=== PATIENT | female | born 1955 | race American Indian/Alaskan Native ===

== ENCOUNTER 2019-02-08 13:03 | Inpatient (IN) | payer MEDICAID, MEDICARE ==
[2019-02-08] MEDS ORDERED: NALOXONE 2 MG/2 ML INJ IV ONE (13:14)
[2019-02-08] MEDS ORDERED: NALOXONE 2 MG/2 ML INJ ONE (13:16)
[2019-02-08] MEDS ORDERED: SODIUM CHLORIDE 0.9% 1000 ML 2,000 ML ONE ×2 (13:21→16:09)
[2019-02-08] MEDS ORDERED: VANCOMYCIN/NS 1 GM/250 ML 1 GM/250 ML BAG IV ONE (13:39)
[2019-02-08] MEDS ORDERED: CEFEPIME/NS 1 GM/100 ML 1 GM/100 ML BAG IV ONE (13:39)
[2019-02-08] MEDS ORDERED: SODIUM CHLORIDE 0.9% 1000 ML 2,000 ML IV ONE (13:39)
[2019-02-08] MEDS ORDERED: SODIUM CHLORIDE 0.9% 1000 ML 1,000 ML IV ONE ×3 (13:41→21:20)
--- NOTE | 2019-02-08 13:44 | Emergency Department Report ---
ED Altered Mental Status HPI - General Stated Complaint: AMS Time Seen by Provider: 02/08/19 13:37 Limitations: Altered Mental Status - History of Present Illness Initial Comments: EMS reports called to NH for altered mental status. Reports patient full code. Reports patient normally walking around and talking. [place] records show PMHx CVA. EMS reports patient hypoxic on room air sat ~ 70s. Reports patient hypotensive en route. - Related Data Home Medications Medication Instructions Recorded Confirmed Last Taken Acetaminophen [Mapap] 650 mg PO Q6H PRN 02/08/19 02/08/19 Unknown Albuterol Sulfate [Proventil Hfa] 6.7 gm IH Q6H PRN 02/08/19 02/08/19 Unknown Aspirin [Aspirin BABY CHEW TAB] 81 mg PO QDAY 02/08/19 02/08/19 Unknown AtorvaSTATin [Lipitor] 10 mg PO QHS 02/08/19 02/08/19 Unknown Calcium Carbonate [Calcium 600MG 600 mg PO DAILY 02/08/19 02/08/19 Unknown TAB] Cyclobenzaprine [Flexeril] 10 mg PO BID PRN 02/08/19 02/08/[address] [DepaKOTE DR] 125 mg PO DAILY 02/08/19 02/08/19 Unknown Divalproex ER [DepaKOTE ER] 500 mg PO QHS 02/08/19 02/08/19 Unknown Donepezil HCl [Donepezil HCl Odt] 10 mg PO QHS 02/08/19 02/08/19 Unknown Gabapentin [Neurontin] 300 mg PO DAILY 02/08/19 02/08/19 Unknown Ibuprofen [Motrin] 800 mg PO Q8HR PRN 02/08/19 02/08/19 Unknown Latanoprost 0.005% [Xalatan 0.005%] 1 drop OP QHS 02/08/19 02/08/19 Unknown Lisinopril [Zestril TAB] 40 mg PO QDAY 02/08/19 02/08/19 Unknown Memantine [Namenda] 10 mg PO BID 02/08/19 02/08/19 Unknown Pantoprazole Sodium [Protonix] 40 mg PO DAILY 02/08/19 02/08/19 Unknown Sennosides [Senna] 8.6 mg PO Q6H PRN 02/08/19 02/08/19 Unknown Sertraline [Zoloft] 125 mg PO QDAY 02/08/19 02/08/19 Unknown Tiotropium [place] [Spiriva] 18 mcg IH DAILY 02/08/19 02/08/19 Unknown hydroCHLOROthiazide [HCTZ] 25 mg PO QDAY 02/08/19 02/08/19 Unknown labetaloL [Labetalol 200mg TAB] 400 mg PO Q8H 02/08/19 02/08/19 Unknown metFORMIN [Glucophage] 500 mg PO BID 02/08/19 02/08/19 Unknown Allergies Allergy/AdvReac Type Severity Reaction Status Date / Time famotidine [From Pepcid] Allergy Unknown Verified 02/08/19 17:02 Pork/Porcine Containing Allergy Unknown Verified 02/08/19 17:02 Products shellfish derived Allergy Unknown Verified 02/08/19 13:47 spinach Allergy Unknown Verified 02/08/19 17:02 strawberry Allergy Unknown Verified 02/08/19 17:02 ED Review of Systems ROS: Stated complaint: AMS Other details as noted in HPI Comment: Unobtainable due to pts medical conditions ED Past Medical Hx - Medications Home Medications: Home Medications Medication Instructions Recorded Confirmed Last Taken Type Acetaminophen [Mapap] 650 mg PO Q6H PRN 02/08/19 02/08/19 Unknown History Albuterol Sulfate [Proventil Hfa] 6.7 gm IH Q6H PRN 02/08/19 02/08/19 Unknown History Aspirin [Aspirin BABY CHEW TAB] 81 mg PO QDAY 02/08/19 02/08/19 Unknown History AtorvaSTATin [Lipitor] 10 mg PO QHS 02/08/19 02/08/19 Unknown History Calcium Carbonate [Calcium 600MG 600 mg PO DAILY 02/08/19 02/08/19 Unknown History TAB] Cyclobenzaprine [Flexeril] 10 mg PO BID PRN 02/08/19 02/08/[address] [DepaKOTE DR] 125 mg PO DAILY 02/08/19 02/08/19 Unknown History Divalproex ER [DepaKOTE ER] 500 mg PO QHS 02/08/19 02/08/19 Unknown History Donepezil HCl [Donepezil HCl Odt] 10 mg PO QHS 02/08/19 02/08/19 Unknown History Gabapentin [Neurontin] 300 mg PO DAILY 02/08/19 02/08/19 Unknown History Ibuprofen [Motrin] 800 mg PO Q8HR PRN 02/08/19 02/08/19 Unknown History Latanoprost 0.005% [Xalatan 0.005%] 1 drop OP QHS 02/08/19 02/08/19 Unknown History Lisinopril [Zestril TAB] 40 mg PO QDAY 02/08/19 02/08/19 Unknown History Memantine [Namenda] 10 mg PO BID 02/08/19 02/08/19 Unknown History Pantoprazole Sodium [Protonix] 40 mg PO DAILY 02/08/19 02/08/19 Unknown History Sennosides [Senna] 8.6 mg PO Q6H PRN 02/08/19 02/08/19 Unknown History Sertraline [Zoloft] 125 mg PO QDAY 02/08/19 02/08/19 Unknown History Tiotropium [place] [Spiriva] 18 mcg IH DAILY 02/08/19 02/08/19 Unknown History hydroCHLOROthiazide [HCTZ] 25 mg PO QDAY 02/08/19 02/08/19 Unknown History labetaloL [Labetalol 200mg TAB] 400 mg PO Q8H 02/08/19 02/08/19 Unknown History metFORMIN [Glucophage] 500 mg PO BID 02/08/19 02/08/19 Unknown History ED Physical Exam - Other Other exam information: GENERAL: Patient in severe acute distress HEAD: Normocephalic, atraumatic EYES: no scleral icterus NOSE: No tenderness, discharge, sinus tenderness MOUTH: Dry mucous membranes HEART: Regular rate and rhythm, no murmur, S1-S2 are auscultated, no edema, pulses are symmetric LUNGS: No respiratory distress. Bilateral breath sounds, No tachypnea, No retractions, No wheezing, rales, rhonchi ABDOMEN: Mild tenderness. Normal bowel sounds, abdomen soft, no distention, no masses MUSCULOSKELETAL: Normal joint range of motion, no redness, no swelling, no tenderness NEUROLOGIC: GCS 07 SKIN: Skin is warm and dry ED Course Vital Signs 02/08/19 02/08/19 02/08/19 13:35 14:29 14:53 Temperature 96.7 F L Pulse Rate 82 87 Blood Pressure 63/31 78/44 O2 Sat by Pulse 100 93 Oximetry 02/08/19 16:37 Temperature Pulse Rate 78 Blood Pressure 76/38 O2 Sat by Pulse 100 Oximetry - Central Line Placement Right Femoral Consent Obtained: emergent situation Time Out Performed: Yes Patient Placed on Monitor/Pulse Ox: Yes Prep: mask, gown, gloves Central Line Prep: Chlorhexidine scrub Ultrasound Used for Placement: No Central Line Lumen Inserted: triple Bloods Obtained for Lab: Yes Central Line Position: good blood return, all ports aspirated, flus, sutured in place with 2-0 Dressing Applied: Tegaderm Patient Tolerated Procedure: well, no complications Complications: none - Intubation Time Out Performed: Yes Sedative: Etomidate Paralytic: Rocuronium Laryngoscope: Jessika Size: 4 ET Tube Size: 7.5 Tube Secured Depth (cm): 22 Tube Secured Location: lips Tube Placement Confirmation: visualized tube passing t, equal breath sounds bilat, no breath sounds over epi, confirmation by capnometr Patient Tolerated Procedure: well, no complications Intubation Complications: none - Lab Data Result diagrams: 02/08/19 13:15 02/08/19 13:15 Lab Results 02/08/19 02/08/19 02/08/19 Range/Units 13:15 13:15 13:15 WBC 16.5 H (4.5-11.0) K/mm3 RBC 3.86 (3.65-5.03) M/mm3 Hgb 9.6 L (10.1-14.3) gm/dl Hct 31.7 (30.3-42.9) % MCV 82 (79-97) fl MCH 25 L (28-32) pg MCHC 30 (30-34) % RDW 20.5 H (13.2-15.2) % Plt Count 284 (140-440) K/mm3 Lymph % (Auto) 10.5 L (13.4-35.0) % [place] % (Auto) 5.4 (0.0-7.3) % Eos % (Auto) 0.0 (0.0-4.3) % Baso % (Auto) 0.1 (0.0-1.8) % Lymph # 1.7 (1.2-5.4) K/mm3 [place] # 0.9 H (0.0-0.8) K/mm3 Eos # 0.0 (0.0-0.4) K/mm3 Baso # 0.0 (0.0-0.1) K/mm3 Seg Neutrophils % 84.0 H (40.0-70.0) % Seg Neutrophils # 13.8 H (1.8-7.7) K/mm3 PT (12.2-14.9) Sec. INR (0.87-1.13) APTT (24.2-36.6) Sec. POC ABG pH (7.35-7.45) POC ABG pCO2 (35-45) POC ABG pO2 (80-105) POC ABG HCO3 (22-26 mml/L) POC ABG Total CO2 (23-27mmol/L) POC ABG O2 Sat POC ABG Base Excess ((-2) - (+3)mmol/L) FiO2 % Sodium (137-145) mmol/L Potassium (3.6-5.0) mmol/L Chloride (98-107) mmol/L Carbon Dioxide (22-30) mmol/L Anion Gap mmol/L BUN (7-17) mg/dL Creatinine (0.7-1.2) mg/dL Estimated GFR ml/min BUN/Creatinine Ratio % Glucose (65-100) mg/dL POC Glucose (70-105) Lactic Acid 7.30 H* (0.7-2.0) mmol/L Calcium (8.4-10.2) mg/dL Magnesium 2.30 (1.7-2.3) mg/dL Total Bilirubin (0.1-1.2) mg/dL AST (5-40) units/L ALT (7-56) units/L Alkaline Phosphatase (35-129) units/L Total Creatine Kinase (30-135) units/L Troponin T 0.079 H (0.00-0.029) ng/mL Total Protein (6.3-8.2) g/dL Albumin (3.9-5) g/dL Albumin/Globulin Ratio % Triglycerides 379 H (2-149) mg/dL Cholesterol 124 (50-199) mg/dL LDL Cholesterol Direct 16 L (50-130) mg/dL HDL Cholesterol 22 L (40-59) mg/dL Cholesterol/HDL Ratio 5.63 % Lipase (13-60) units/L Urine Color (Yellow) Urine Turbidity (Clear) Urine pH (5.0-7.0) Ur Specific [place] (1.003-1.030) Urine Protein (Negative) mg/dL Urine Glucose (UA) (Negative) mg/dL Urine Ketones (Negative) mg/dL Urine Blood (Negative) Urine Nitrite (Negative) Urine Bilirubin (Negative) Urine Urobilinogen (<2.0) mg/dL Ur Leukocyte Esterase (Negative) Urine WBC (Auto) (0.0-6.0) /HPF Urine RBC (Auto) (0.0-6.0) /HPF U Epithel Cells (Auto) (0-13.0) /HPF Urine Bacteria (Auto) (Negative) /HPF Urine WBC Clumps /HPF Ur Renal Epithelial Cell /LPF Salicylates (2.8-20.0) mg/dL Acetaminophen (10.0-30.0) ug/mL 02/08/19 02/08/19 02/08/19 Range/Units 13:15 13:15 13:15 WBC (4.5-11.0) K/mm3 RBC (3.65-5.03) M/mm3 Hgb (10.1-14.3) gm/dl Hct (30.3-42.9) % MCV (79-97) fl MCH (28-32) pg MCHC (30-34) % RDW (13.2-15.2) % Plt Count (140-440) K/mm3 Lymph % (Auto) (13.4-35.0) % [place] % (Auto) (0.0-7.3) % Eos % (Auto) (0.0-4.3) % Baso % (Auto) (0.0-1.8) % Lymph # (1.2-5.4) K/mm3 [place] # (0.0-0.8) K/mm3 Eos # (0.0-0.4) K/mm3 Baso # (0.0-0.1) K/mm3 Seg Neutrophils % (40.0-70.0) % Seg Neutrophils # (1.8-7.7) K/mm3 PT 16.0 H (12.2-14.9) Sec. INR 1.26 H (0.87-1.13) APTT 26.0 (24.2-36.6) Sec. POC ABG pH (7.35-7.45) POC ABG pCO2 (35-45) POC ABG pO2 (80-105) POC ABG HCO3 (22-26 mml/L) POC ABG Total CO2 (23-27mmol/L) POC ABG O2 Sat POC ABG Base Excess ((-2) - (+3)mmol/L) FiO2 % Sodium 150 H (137-145) mmol/L Potassium 5.8 H (3.6-5.0) mmol/L Chloride 100.4 (98-107) mmol/L Carbon Dioxide 16 L (22-30) mmol/L Anion Gap 39 mmol/L BUN 91 H (7-17) mg/dL Creatinine 7.6 H (0.7-1.2) mg/dL Estimated GFR 7 ml/min BUN/Creatinine Ratio 12 % Glucose 89 (65-100) mg/dL POC Glucose (70-105) Lactic Acid (0.7-2.0) mmol/L Calcium 8.7 (8.4-10.2) mg/dL Magnesium (1.7-2.3) mg/dL Total Bilirubin 0.30 (0.1-1.2) mg/dL AST 157 H (5-40) units/L ALT 64 H (7-56) units/L Alkaline Phosphatase 60 (35-129) units/L Total Creatine Kinase 9438 H (30-135) units/L Troponin T (0.00-0.029) ng/mL Total Protein 8.2 (6.3-8.2) g/dL Albumin 3.9 (3.9-5) g/dL Albumin/Globulin Ratio 0.9 % Triglycerides (2-149) mg/dL Cholesterol (50-199) mg/dL LDL Cholesterol Direct (50-130) mg/dL HDL Cholesterol (40-59) mg/dL Cholesterol/HDL Ratio % Lipase 18 (13-60) units/L Urine Color (Yellow) Urine Turbidity (Clear) Urine pH (5.0-7.0) Ur Specific [place] (1.003-1.030) Urine Protein (Negative) mg/dL Urine Glucose (UA) (Negative) mg/dL Urine Ketones (Negative) mg/dL Urine Blood (Negative) Urine Nitrite (Negative) Urine Bilirubin (Negative) Urine Urobilinogen (<2.0) mg/dL Ur Leukocyte Esterase (Negative) Urine WBC (Auto) (0.0-6.0) /HPF Urine RBC (Auto) (0.0-6.0) /HPF U Epithel Cells (Auto) (0-13.0) /HPF Urine Bacteria (Auto) (Negative) /HPF Urine WBC Clumps /HPF Ur Renal Epithelial Cell /LPF Salicylates < 0.3 L (2.8-20.0) mg/dL Acetaminophen (10.0-30.0) ug/mL 02/08/19 02/08/19 02/08/19 Range/Units 13:15 14:45 14:53 WBC (4.5-11.0) K/mm3 RBC (3.65-5.03) M/mm3 Hgb (10.1-14.3) gm/dl Hct (30.3-42.9) % MCV (79-97) fl MCH (28-32) pg MCHC (30-34) % RDW (13.2-15.2) % Plt Count (140-440) K/mm3 Lymph % (Auto) (13.4-35.0) % [place] % (Auto) (0.0-7.3) % Eos % (Auto) (0.0-4.3) % Baso % (Auto) (0.0-1.8) % Lymph # (1.2-5.4) K/mm3 [place] # (0.0-0.8) K/mm3 Eos # (0.0-0.4) K/mm3 Baso # (0.0-0.1) K/mm3 Seg Neutrophils % (40.0-70.0) % Seg Neutrophils # (1.8-7.7) K/mm3 PT (12.2-14.9) Sec. INR (0.87-1.13) APTT (24.2-36.6) Sec. POC ABG pH 7.126 L (7.35-7.45) POC ABG pCO2 38.5 (35-45) POC ABG pO2 174 H (80-105) POC ABG HCO3 12.7 (22-26 mml/L) POC ABG Total CO2 14 (23-27mmol/L) POC ABG O2 Sat 99 POC ABG Base Excess -17 ((-2) - (+3)mmol/L) FiO2 100 % Sodium (137-145) mmol/L Potassium (3.6-5.0) mmol/L Chloride (98-107) mmol/L Carbon Dioxide (22-30) mmol/L Anion Gap mmol/L BUN (7-17) mg/dL Creatinine (0.7-1.2) mg/dL Estimated GFR ml/min BUN/Creatinine Ratio % Glucose (65-100) mg/dL POC Glucose (70-105) Lactic Acid (0.7-2.0) mmol/L Calcium (8.4-10.2) mg/dL Magnesium (1.7-2.3) mg/dL Total Bilirubin (0.1-1.2) mg/dL AST (5-40) units/L ALT (7-56) units/L Alkaline Phosphatase (35-129) units/L Total Creatine Kinase (30-135) units/L Troponin T (0.00-0.029) ng/mL Total Protein (6.3-8.2) g/dL Albumin (3.9-5) g/dL Albumin/Globulin Ratio % Triglycerides (2-149) mg/dL Cholesterol (50-199) mg/dL LDL Cholesterol Direct (50-130) mg/dL HDL Cholesterol (40-59) mg/dL Cholesterol/HDL Ratio % Lipase (13-60) units/L Urine Color Yellow (Yellow) Urine Turbidity Turbid (Clear) Urine pH 7.0 (5.0-7.0) Ur Specific [place] 1.013 (1.003-1.030) Urine Protein 100 mg/dl (Negative) mg/dL Urine Glucose (UA) Neg (Negative) mg/dL Urine Ketones Neg (Negative) mg/dL Urine Blood Mod (Negative) Urine Nitrite Neg (Negative) Urine Bilirubin Neg (Negative) Urine Urobilinogen < 2.0 (<2.0) mg/dL Ur Leukocyte Esterase Mod (Negative) Urine WBC (Auto) > 182.0 H (0.0-6.0) /HPF Urine RBC (Auto) 165.0 (0.0-6.0) /HPF U Epithel Cells (Auto) 14.0 H (0-13.0) /HPF Urine Bacteria (Auto) 4+ (Negative) /HPF Urine WBC Clumps 3+ /HPF Ur Renal Epithelial Cell 2 /LPF Salicylates (2.8-20.0) mg/dL Acetaminophen < 5.0 L (10.0-30.0) ug/mL 02/08/19 Range/Units 15:18 WBC (4.5-11.0) K/mm3 RBC (3.65-5.03) M/mm3 Hgb (10.1-14.3) gm/dl Hct (30.3-42.9) % MCV (79-97) fl MCH (28-32) pg MCHC (30-34) % RDW (13.2-15.2) % Plt Count (140-440) K/mm3 Lymph % (Auto) (13.4-35.0) % [place] % (Auto) (0.0-7.3) % Eos % (Auto) (0.0-4.3) % Baso % (Auto) (0.0-1.8) % Lymph # (1.2-5.4) K/mm3 [place] # (0.0-0.8) K/mm3 Eos # (0.0-0.4) K/mm3 Baso # (0.0-0.1) K/mm3 Seg Neutrophils % (40.0-70.0) % Seg Neutrophils # (1.8-7.7) K/mm3 PT (12.2-14.9) Sec. INR (0.87-1.13) APTT (24.2-36.6) Sec. POC ABG pH (7.35-7.45) POC ABG pCO2 (35-45) POC ABG pO2 (80-105) POC ABG HCO3 (22-26 mml/L) POC ABG Total CO2 (23-27mmol/L) POC ABG O2 Sat POC ABG Base Excess ((-2) - (+3)mmol/L) FiO2 % Sodium (137-145) mmol/L Potassium (3.6-5.0) mmol/L Chloride (98-107) mmol/L Carbon Dioxide (22-30) mmol/L Anion Gap mmol/L BUN (7-17) mg/dL Creatinine (0.7-1.2) mg/dL Estimated GFR ml/min BUN/Creatinine Ratio % Glucose (65-100) mg/dL POC Glucose 105 (70-105) Lactic Acid (0.7-2.0) mmol/L Calcium (8.4-10.2) mg/dL Magnesium (1.7-2.3) mg/dL Total Bilirubin (0.1-1.2) mg/dL AST (5-40) units/L ALT (7-56) units/L Alkaline Phosphatase (35-129) units/L Total Creatine Kinase (30-135) units/L Troponin T (0.00-0.029) ng/mL Total Protein (6.3-8.2) g/dL Albumin (3.9-5) g/dL Albumin/Globulin Ratio % Triglycerides (2-149) mg/dL Cholesterol (50-199) mg/dL LDL Cholesterol Direct (50-130) mg/dL HDL Cholesterol (40-59) mg/dL Cholesterol/HDL Ratio % Lipase (13-60) units/L Urine Color (Yellow) Urine Turbidity (Clear) Urine pH (5.0-7.0) Ur Specific [place] (1.003-1.030) Urine Protein (Negative) mg/dL Urine Glucose (UA) (Negative) mg/dL Urine Ketones (Negative) mg/dL Urine Blood (Negative) Urine Nitrite (Negative) Urine Bilirubin (Negative) Urine Urobilinogen (<2.0) mg/dL Ur Leukocyte Esterase (Negative) Urine WBC (Auto) (0.0-6.0) /HPF Urine RBC (Auto) (0.0-6.0) /HPF U Epithel Cells (Auto) (0-13.0) /HPF Urine Bacteria (Auto) (Negative) /HPF Urine WBC Clumps /HPF Ur Renal Epithelial Cell /LPF Salicylates (2.8-20.0) mg/dL Acetaminophen (10.0-30.0) ug/mL Laboratory Results - last 24 hr 02/08/19 02/08/19 02/08/19 13:15 13:15 13:15 WBC 16.5 H RBC 3.86 Hgb 9.6 L Hct 31.7 MCV 82 MCH 25 L MCHC 30 RDW 20.5 H Plt Count 284 Lymph % (Auto) 10.5 L [place] % (Auto) 5.4 Eos % (Auto) 0.0 Baso % (Auto) 0.1 Lymph # 1.7 [place] # 0.9 H Eos # 0.0 Baso # 0.0 Seg Neutrophils % 84.0 H Seg Neutrophils # 13.8 H PT INR APTT POC ABG pH POC ABG pCO2 POC ABG pO2 POC ABG HCO3 POC ABG Total CO2 POC ABG O2 Sat POC ABG Base Excess FiO2 Sodium Potassium Chloride Carbon Dioxide Anion Gap BUN Creatinine Estimated GFR BUN/Creatinine Ratio Glucose POC Glucose Lactic Acid 7.30 H* Calcium Magnesium 2.30 Total Bilirubin AST ALT Alkaline Phosphatase Total Creatine Kinase Troponin T 0.079 H Total Protein Albumin Albumin/Globulin Ratio Triglycerides 379 H Cholesterol 124 LDL Cholesterol Direct 16 L HDL Cholesterol 22 L Cholesterol/HDL Ratio 5.63 Lipase Urine Color Urine Turbidity Urine pH Ur Specific [place] Urine Protein Urine Glucose (UA) Urine Ketones Urine Blood Urine Nitrite Urine Bilirubin Urine Urobilinogen Ur Leukocyte Esterase Urine WBC (Auto) Urine RBC (Auto) U Epithel Cells (Auto) Urine Bacteria (Auto) Urine WBC Clumps Ur Renal Epithelial Cell Salicylates Acetaminophen 02/08/19 02/08/19 02/08/19 13:15 13:15 13:15 WBC RBC Hgb Hct MCV MCH MCHC RDW Plt Count Lymph % (Auto) [place] % (Auto) Eos % (Auto) Baso % (Auto) Lymph # [place] # Eos # Baso # Seg Neutrophils % Seg Neutrophils # PT 16.0 H INR 1.26 H APTT 26.0 POC ABG pH POC ABG pCO2 POC ABG pO2 POC ABG HCO3 POC ABG Total CO2 POC ABG O2 Sat POC ABG Base Excess FiO2 Sodium 150 H Potassium 5.8 H Chloride 100.4 Carbon Dioxide 16 L Anion Gap 39 BUN 91 H Creatinine 7.6 H Estimated GFR 7 BUN/Creatinine Ratio 12 Glucose 89 POC Glucose Lactic Acid Calcium 8.7 Magnesium Total Bilirubin 0.30 AST 157 H ALT 64 H Alkaline Phosphatase 60 Total Creatine Kinase 9438 H Troponin T Total Protein 8.2 Albumin 3.9 Albumin/Globulin Ratio 0.9 Triglycerides Cholesterol LDL Cholesterol Direct HDL Cholesterol Cholesterol/HDL Ratio Lipase 18 Urine Color Urine Turbidity Urine pH Ur Specific [place] Urine Protein Urine Glucose (UA) Urine Ketones Urine Blood Urine Nitrite Urine Bilirubin Urine Urobilinogen Ur Leukocyte Esterase Urine WBC (Auto) Urine RBC (Auto) U Epithel Cells (Auto) Urine Bacteria (Auto) Urine WBC Clumps Ur Renal Epithelial Cell Salicylates < 0.3 L Acetaminophen 02/08/19 02/08/19 02/08/19 13:15 14:45 14:53 WBC RBC Hgb Hct MCV MCH MCHC RDW Plt Count Lymph % (Auto) [place] % (Auto) Eos % (Auto) Baso % (Auto) Lymph # [place] # Eos # Baso # Seg Neutrophils % Seg Neutrophils # PT INR APTT POC ABG pH 7.126 L POC ABG pCO2 38.5 POC ABG pO2 174 H POC ABG HCO3 12.7 POC ABG Total CO2 14 POC ABG O2 Sat 99 POC ABG Base Excess -17 FiO2 100 Sodium Potassium Chloride Carbon Dioxide Anion Gap BUN Creatinine Estimated GFR BUN/Creatinine Ratio Glucose POC Glucose Lactic Acid Calcium Magnesium Total Bilirubin AST ALT Alkaline Phosphatase Total Creatine Kinase Troponin T Total Protein Albumin Albumin/Globulin Ratio Triglycerides Cholesterol LDL Cholesterol Direct HDL Cholesterol Cholesterol/HDL Ratio Lipase Urine Color Yellow Urine Turbidity Turbid Urine pH 7.0 Ur Specific [place] 1.013 Urine Protein 100 mg/dl Urine Glucose (UA) Neg Urine Ketones Neg Urine Blood Mod Urine Nitrite Neg Urine Bilirubin Neg Urine Urobilinogen < 2.0 Ur Leukocyte Esterase Mod Urine WBC (Auto) > 182.0 H Urine RBC (Auto) 165.0 U Epithel Cells (Auto) 14.0 H Urine Bacteria (Auto) 4+ Urine WBC Clumps 3+ Ur Renal Epithelial Cell 2 Salicylates Acetaminophen < 5.0 L 02/08/19 15:18 WBC RBC Hgb Hct MCV MCH MCHC RDW Plt Count Lymph % (Auto) [place] % (Auto) Eos % (Auto) Baso % (Auto) Lymph # [place] # Eos # Baso # Seg Neutrophils % Seg Neutrophils # PT INR APTT POC ABG pH POC ABG pCO2 POC ABG pO2 POC ABG HCO3 POC ABG Total CO2 POC ABG O2 Sat POC ABG Base Excess FiO2 Sodium Potassium Chloride Carbon Dioxide Anion Gap BUN Creatinine Estimated GFR BUN/Creatinine Ratio Glucose POC Glucose 105 Lactic Acid Calcium Magnesium Total Bilirubin AST ALT Alkaline Phosphatase Total Creatine Kinase Troponin T Total Protein Albumin Albumin/Globulin Ratio Triglycerides Cholesterol LDL Cholesterol Direct HDL Cholesterol Cholesterol/HDL Ratio Lipase Urine Color Urine Turbidity Urine pH Ur Specific [place] Urine Protein Urine Glucose (UA) Urine Ketones Urine Blood Urine Nitrite Urine Bilirubin Urine Urobilinogen Ur Leukocyte Esterase Urine WBC (Auto) Urine RBC (Auto) U Epithel Cells (Auto) Urine Bacteria (Auto) Urine WBC Clumps Ur Renal Epithelial Cell Salicylates Acetaminophen When compared to previous EKG there are: no significant change - Radiology Data Radiology results: report reviewed - Medical Decision Making At 1521 patient experienced an episode of cardiac arrest per ER nurse. Physician called to bedside where CPR was in progress. Patient received one round of CPR with epi, bicarb, and CaCl infusion and with ROSC. Patient stabilized. Plan admit for further evaluation. Hospitalist updated and accepts admission. Critical care attestation.: If time is entered above; I have spent that time in minutes in the direct care of this critically ill patient, excluding procedure time. ED Disposition Clinical Impression: Septic shock, Hyperkalemia, Uremia, Colitis, Cardiac arrest Altered mental status Qualifiers: Altered mental status type: unspecified Qualified Code(s): R41.82 - Altered mental status, unspecified Rhabdomyolysis Qualifiers: Rhabdomyolysis type: non-traumatic Qualified Code(s): M62.82 - Rhabdomyolysis Acute renal failure Qualifiers: Acute renal failure type: unspecified Qualified Code(s): N17.9 - Acute kidney failure, unspecified UTI (urinary tract infection) Qualifiers: Encounter type: initial encounter Disposition: OP ADMIT IP TO THIS HOSP Is pt being admited?: Yes Condition: Stable
[2019-02-08 13:52] LABS: Basophils % (Auto) 0.1 % (0.0-1.8); Hematocrit 31.7 % (30.3-42.9); Hemoglobin 9.6 gm/dl (10.1-14.3); Lymphocytes # (Auto) 1.7 K/mm3 (1.2-5.4); Lymphocytes % (Auto) 10.5 % (13.4-35.0); Mean Corpuscular HGB Conc 30 % (30-34); Mean Corpuscular Volume 82 fl (79-97); Monocytes # (Auto) 0.9 K/mm3 (0.0-0.8); Monocytes % (Auto) 5.4 % (0.0-7.3); Platelet Count 284 K/mm3 (140-440); Red Blood Count 3.86 M/mm3 (3.65-5.03)
[2019-02-08] MEDS: NORepinephrine/NS 4 MG-250 ML 4 MG/250 ML BAG IV SCH (13:52)
[2019-02-08 14:05] LABS: INR 1.26 (0.87-1.13)
[2019-02-08 14:08] LABS: Red Cell Distribution Width 20.5 % (13.2-15.2)
--- NOTE | 2019-02-08 14:14 | XRay Report ---
CHEST 1 VIEW INDICATION: tachycardia. COMPARISON: None. FINDINGS: Support devices: Endotracheal tube and NG tube in satisfactory position. Heart: Within normal limits. Lungs/Pleura: Diminished lung volumes. Basilar effusions with associated volume loss left greater freya n right. Mild edema. Additional findings: None. IMPRESSION: 1. Lines and tubes in satisfactory position. 2. Diminished lung volumes. 3. Basilar effusions with volume loss left greater than right. 4. Mild edema. Signer Name: Ross Kim MD Signed: 02/08/2019 2:09 PM Workstation Name: [id number]
[2019-02-08 14:15] LABS: Albumin 3.9 g/dL (3.9-5); Calcium 8.7 mg/dL (8.4-10.2)
[2019-02-08] MEDS ORDERED: metroNIDAZOLE/NS 500 MG/100 ML 500 MG/100 ML BAG IV ONE ×2 (14:23→15:15)
[2019-02-08] MEDS ORDERED: VANCOMYCIN 1,750 MG in SODIUM CHLORIDE 0.9% 500 ML 500 ML IV ONE (14:30)
[2019-02-08] MEDS ORDERED: EPINEPHrine 1:10,000 1 MG/10 ML SYRINGE ONE (15:00)
[2019-02-08] MEDS ORDERED: ETOMIDATE 20 MG/10 ML INJ IV ONE (15:00)
[2019-02-08] MEDS ORDERED: SODIUM BICARB 8.4% 50 MEQ/50 ML SYRINGE IV ONE (15:00)
[2019-02-08] MEDS ORDERED: ROCURONIUM 50 MG/5 ML INJ IV ONE (15:00)
[2019-02-08] MEDS ORDERED: CALCIUM CHLORIDE 1,000 MG/10 ML SYRINGE IV ONE (15:00)
[2019-02-08 15:01] LABS: Chol/HDL Ratio 5.63 %
[2019-02-08 15:04] LABS: Bacteria,Urine 4+ /HPF (Negative); Bilirubin,Urine NEG (Negative); Blood,Urine MOD (Negative); Color,Urine Yellow (Yellow); Renal Epithelial Cells,Urine 2 /LPF; Urobilinogen,Urine < 2.0 mg/dL (<2.0)
[2019-02-08 15:15] LABS: WBC,Urine > 182.0 /HPF (0.0-6.0)
[2019-02-08] MEDS ORDERED: DOPamine/D5W 800 MG/250 ML 800 MG/250 ML BAG IV ONE ×2 (15:15→18:06)
[2019-02-08] MEDS ORDERED: HYDROCORTISONE SOD SUCC 100 MG/2 ML VIAL IV ONE (15:29)
[2019-02-08] MEDS ORDERED: SODIUM BICARBONATE 50 MEQ in SODIUM CHLORIDE 0.9% 1000 ML 1,000 ML IV ONE (15:30)
--- NOTE | 2019-02-08 15:43 | History and Physical Report ---
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 [place] with Obesity, CVA presents to ED for evaluation. Pt is intubated at time of my evaluation and is unable to provide history. Pt history taken from EMS, ED staff, and SNF Staff. As per staff, the patient was in her usual state of health today and was found to be confused and short of breath. EMS notified, and upon arrival the patient was found to be is distress and transported to [facility]. Pt seen and evaluated in ED and during the course of her initial evaluation the patient experienced cardiorespiratory arrest. Pt treated IAW ACLS protocol with return of perfusing cardiac rhythm. Pt also found to have Septic Shock and unable to maintain MAP above 60 and was initiated on sepsis protocol and treated with IV pressor support and IVF resuscitation therapy. Pt also found to have Acidosis, and Acute hypoxemic Respiratory Failure and was intubated and placed on vent support. No further history obtainable. No prior admission for review. Pt admitt ed to ICU. Pulmonary team consulted in ED. Past History Past Medical History: other (see HPI) Past Surgical History: No surgical history, Other (reviewed) Social history: single. denies: smoking, alcohol abuse, prescription drug abuse Family history: hypertension Medications and Allergies Allergies Allergy/AdvReac Type Severity Reaction Status Date / Time shellfish derived Allergy Unknown Verified 02/08/19 13:47 Active Meds: Active Medications Norepinephrine (Levophed Drip 4 Mg/Ns 250 Ml) 4 mg in 250 mls @ 7.5 mls/hr IV TITR YANNA; Protocol Last Titration: 02/08/19 15:40 Dose: 16 mcg/min, 60 mls/hr Documented by: Vancomycin HCl 1,750 mg/ (Sodium Chloride) 535 mls @ 333.333 mls/hr IV ONCE ONE Stop: 02/08/19 16:06 Last Admin: 02/08/19 14:56 Dose: 333.333 mls/hr Documented by: Metronidazole (Flagyl 500 Mg/100 Ml) 500 mg in 100 mls @ 200 mls/hr IV ONCE ONE; Protocol Stop: 02/08/19 15:44 Last Admin: 02/08/19 15:30 Dose: Not Given Documented by: Dopamine HCl/Dextrose (Intropin Drip 800 Mg/D5w 250 Ml) 800 mg in 250 mls @ 3.274 mls/hr IV TITR ONE; Protocol Stop: 02/11/19 19:36 Sodium Bicarbonate 50 meq/ (Sodium Chloride) 1,050 mls @ 100 mls/hr IV DIRECT ONE Stop: 02/09/19 01:59 Review of Systems ROS unobtainable: due to endotracheal tube Exam - Constitutional Vitals: Temp Pulse Resp BP Pulse Ox 96.7 F L 82 63/31 100 02/08/19 14:29 02/08/19 13:35 02/08/19 13:35 02/08/19 13:35 General appearance: Present: severe distress - EENT Eyes: Present: miosis ENT: hearing decreased - Neck Neck: Present: supple, normal ROM - Respiratory Respiratory effort: labored, accessory muscle use, stridor Respiratory: bilateral: diminished, rhonchi - Cardiovascular Heart Sounds: Present: S1 & S2. Absent: rub, click - Extremities Extremities: pulses symmetrical, No edema Extremity abnormal: edema Peripheral Pulses: abnormal (capillary refill greater than 3.5 seconds) - Abdominal General gastrointestinal: Present: soft, non-tender, non-distended, normal bowel sounds Female genitourinary: Present: normal - Integumentary Integumentary: Present: clear, dry, clammy, decreased turgor - Musculoskeletal Musculoskeletal: generalized weakness - Psychiatric Psychiatric: no appropriate mood/affect, no intact judgment & insight, no memory intact - Neurologic Neurologic: CNII-XII intact, moves all extremities, no gait normal Results - Labs CBC & Chem 7: 02/08/19 13:15 02/08/19 13:15 Labs: Abnormal lab results 02/08/19 02/08/19 02/08/19 Range/Units 13:15 13:15 13:15 WBC 16.5 H (4.5-11.0) K/mm3 Hgb 9.6 L (10.1-14.3) gm/dl MCH 25 L (28-32) pg RDW 20.5 H (13.2-15.2) % Lymph % (Auto) 10.5 L (13.4-35.0) % [place] # 0.9 H (0.0-0.8) K/mm3 Seg Neutrophils % 84.0 H (40.0-70.0) % Seg Neutrophils # 13.8 H (1.8-7.7) K/mm3 PT (12.2-14.9) Sec. INR (0.87-1.13) POC ABG pH (7.35-7.45) POC ABG pO2 (80-105) Sodium (137-145) mmol/L Potassium (3.6-5.0) mmol/L Carbon Dioxide (22-30) mmol/L BUN (7-17) mg/dL Creatinine (0.7-1.2) mg/dL Lactic Acid 7.30 H* (0.7-2.0) mmol/L AST (5-40) units/L ALT (7-56) units/L Total Creatine Kinase (30-135) units/L Troponin T 0.079 H (0.00-0.029) ng/mL Triglycerides 379 H (2-149) mg/dL LDL Cholesterol Direct 16 L (50-130) mg/dL HDL Cholesterol 22 L (40-59) mg/dL Urine WBC (Auto) (0.0-6.0) /HPF U Epithel Cells (Auto) (0-13.0) /HPF Salicylates (2.8-20.0) mg/dL Acetaminophen (10.0-30.0) ug/mL 02/08/19 02/08/19 02/08/19 Range/Units 13:15 13:15 13:15 WBC (4.5-11.0) K/mm3 Hgb (10.1-14.3) gm/dl MCH (28-32) pg RDW (13.2-15.2) % Lymph % (Auto) (13.4-35.0) % [place] # (0.0-0.8) K/mm3 Seg Neutrophils % (40.0-70.0) % Seg Neutrophils # (1.8-7.7) K/mm3 PT 16.0 H (12.2-14.9) Sec. INR 1.26 H (0.87-1.13) POC ABG pH (7.35-7.45) POC ABG pO2 (80-105) Sodium 150 H (137-145) mmol/L Potassium 5.8 H (3.6-5.0) mmol/L Carbon Dioxide 16 L (22-30) mmol/L BUN 91 H (7-17) mg/dL Creatinine 7.6 H (0.7-1.2) mg/dL Lactic Acid (0.7-2.0) mmol/L AST 157 H (5-40) units/L ALT 64 H (7-56) units/L Total Creatine Kinase 9438 H (30-135) units/L Troponin T (0.00-0.029) ng/mL Triglycerides (2-149) mg/dL LDL Cholesterol Direct (50-130) mg/dL HDL Cholesterol (40-59) mg/dL Urine WBC (Auto) (0.0-6.0) /HPF U Epithel Cells (Auto) (0-13.0) /HPF Salicylates < 0.3 L (2.8-20.0) mg/dL Acetaminophen (10.0-30.0) ug/mL 02/08/19 02/08/19 02/08/19 Range/Units 13:15 14:45 14:53 WBC (4.5-11.0) K/mm3 Hgb (10.1-14.3) gm/dl MCH (28-32) pg RDW (13.2-15.2) % Lymph % (Auto) (13.4-35.0) % [place] # (0.0-0.8) K/mm3 Seg Neutrophils % (40.0-70.0) % Seg Neutrophils # (1.8-7.7) K/mm3 PT (12.2-14.9) Sec. INR (0.87-1.13) POC ABG pH 7.126 L (7.35-7.45) POC ABG pO2 174 H (80-105) Sodium (137-145) mmol/L Potassium (3.6-5.0) mmol/L Carbon Dioxide (22-30) mmol/L BUN (7-17) mg/dL Creatinine (0.7-1.2) mg/dL Lactic Acid (0.7-2.0) mmol/L AST (5-40) units/L ALT (7-56) units/L Total Creatine Kinase (30-135) units/L Troponin T (0.00-0.029) ng/mL Triglycerides (2-149) mg/dL LDL Cholesterol Direct (50-130) mg/dL HDL Cholesterol (40-59) mg/dL Urine WBC (Auto) > 182.0 H (0.0-6.0) /HPF U Epithel Cells (Auto) 14.0 H (0-13.0) /HPF Salicylates (2.8-20.0) mg/dL Acetaminophen < 5.0 L (10.0-30.0) ug/mL Assessment and Plan - Patient Problems (1) Sepsis Current Visit: Yes Status: Acute Plan to address problem: Sepsis protocol: Iv antibiotic therapy, IVF resuscitation therapy, monitor uop q shift, CBC, CMP, Chest x ray, urinalysis, IV pressor support to maintain MAP greater than 60, serial lactic acid The high probability of a clinically significant, sudden or life threatening deterioration of the [Neuro, respiratory, renal] system(s) required my full and direct attention, intervention and personal management. The aggregate critical care time was [95] minutes. This time is in addition to time spent performing reported procedures but includes the following: [x] Data Review and interpretation [x] Patient assessment and monitoring of vital signs [x] Documentation [x] Medication orders and management (2) XUAN (acute kidney injury) Current Visit: Yes Status: Acute Plan to address problem: IVF resuscitation therapy, monitor uop q shift, urine electrolytes, Nephrology consulted in ED, renal ultrasound (3) Encephalopathy Current Visit: Yes Status: Acute Plan to address problem: CT head, neuro check, IVF resuscitation therapy, (4) Metabolic acidosis Current Visit: Yes Status: Acute Plan to address problem: IV bicarbonate therapy, IVF resuscitation therapy, serial lactic acid (5) UTI (urinary tract infection) Current Visit: Yes Status: Acute Qualifiers: Encounter type: initial encounter Plan to address problem: IV antibiotic therapy, urinalysis, (6) Cardiac arrest Current Visit: Yes Status: Acute Plan to address problem: Pt treated IAW ACLS protocol with return of perfusing cardiac rhythm. admit to ICU (7) Respiratory failure Current Visit: Yes Status: Acute Qualifiers: Chronicity: acute Respiratory failure complication: hypoxia Qualified Code(s): J96.01 - Acute respiratory failure with hypoxia Plan to address problem: Pt intubated, sedated, and placed on vent support, serial ABG, am CXR, wean vent as tolerated, daily SBT, Sedation holiday, pulmonary team consulted. (8) DVT prophylaxis Current Visit: Yes Status: Acute Plan to address problem: SCD to BLE while in bed, prophylactic heparin
[2019-02-08] MEDS ORDERED: SODIUM CHLORIDE 0.9% 1000 ML IV SOLN IV ONE (15:44)
[2019-02-08] MEDS ORDERED: SODIUM CHLORIDE 0.9% 500 ML 500 ML ONE (16:09)
[2019-02-08] MEDS ORDERED: NORepinephrine/NS 4 MG-250 ML 4 MG/250 ML BAG IV ONE ×4 (16:28→23:49)
[2019-02-08] MEDS ORDERED: DOBUTamine/D5W 500 MG/250 ML 500 MG/250 ML BAG IV ONE (19:38)
[2019-02-08] MEDS: DOBUTamine/D5W 500 MG/250 ML 500 MG/250 ML BAG IV SCH (19:54)
[2019-02-08 20:30] LABS: Calcium 6.9 mg/dL (8.4-10.2)
[2019-02-08] MEDS ORDERED: SODIUM CHLORIDE 0.9% 1000 ML 1,000 ML ONE (21:14)
[2019-02-08] MEDS ORDERED: DEXTROSE 50% IN WATER (25GM) 50 ML SYRINGE IV ONE ×2 (22:02→23:49)
[2019-02-08] MEDS ORDERED: INSULIN REGULAR, HUMAN 100 UNITS/1 ML IV ONE (22:02)
[2019-02-08] MEDS ORDERED: CALCIUM GLUCONATE 1,000 MG in SODIUM CHLORIDE 0.9% 100 ML IV ONE (22:03)
[2019-02-08] MEDS ORDERED: SODIUM BICARBONATE 100 MEQ in DEXTROSE 5% IN WATER 1,000 ML IV SCH (23:00)
[2019-02-08] MEDS ORDERED: INSULIN REGULAR, HUMAN 100 UNITS/1 ML ONE (23:50)
[2019-02-09 01:36] LABS: ABG Base Excess -17.7 mmol/L (-2.0-3.0); ABG HCO3 10.8 mmol/L (20.0-26.0); ABG Methemoglobin 0.6 % (0.0-1.5); ABG Oxygen Saturation 94.6 % (95.0-99.0); ABG PO2 89.4 mm Hg (80.0-90.0)
[2019-02-09 01:48] LABS: ABG PH 7.106 pH Units (7.350-7.450)
[2019-02-09] MEDS ORDERED: DOPamine/D5W 800 MG/250 ML 800 MG/250 ML BAG IV ONE ×2 (02:01→13:01)
[2019-02-09] MEDS: HEPARIN 5,000 UNIT/1 ML VIAL SUB-Q SCH ×3 (02:23→22:12)
--- NOTE | 2019-02-09 02:26 | Ultrasound Report ---
ULTRASOUND RENAL INDICATION: Acute renal failure.. COMPARISON: No relevant prior imaging study available. FINDINGS: RIGHT KIDNEY: Size: 11.9 x 3.5 x 5.9 cm. Echogenicity: Normal. Cortical thickness: Mild thinning, 1.4 cm. Hydronephrosis: None. 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 A mildly c omplex lower pole cyst measures 1.7 x 1.2 cm. Stones: None. LEFT KIDNEY: Size: 9.2 x 5.4 x 5.2 cm. Echogenicity: Normal. Cortical thickness: Normal, 2.0 cm. Hydronephrosis: None. Cyst or mass: None. Stones: None. Urinary Bladder: Drained by a Palmer catheter. Free Fluid: None. Additional Findings: None. IMPRESSION 1. No acute sonographic abnormality of the kidneys. 2. 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 3. Right renal cyst as above. Signer Name: Jere Choudhary MD Signed: 02/09/2019 2:22 AM Workstation Name: [id number]
[2019-02-09] MEDS ORDERED: NORepinephrine/NS 4 MG-250 ML 4 MG/250 ML BAG IV ONE ×5 (02:45→14:28)
[2019-02-09] MEDS ORDERED: DOBUTamine/D5W 500 MG/250 ML 500 MG/250 ML BAG IV ONE ×3 (02:58→10:46)
[2019-02-09 03:29] LABS: Creatinine,Urine 34.3 mg/dL (0.1-20.0)
[2019-02-09 04:00] LABS: Hematocrit 28.6 % (30.3-42.9); Hemoglobin 8.8 gm/dl (10.1-14.3); Mean Corpuscular HGB Conc 31 % (30-34); Mean Corpuscular Volume 85 fl (79-97); Platelet Count 234 K/mm3 (140-440); Red Blood Count 3.37 M/mm3 (3.65-5.03)
[2019-02-09 04:12] LABS: Albumin 2.7 g/dL (3.9-5); Calcium 6.7 mg/dL (8.4-10.2)
[2019-02-09 04:15] LABS: Red Cell Distribution Width 21.7 % (13.2-15.2)
[2019-02-09 05:02] LABS: Band Neutrophils # (Manual) 0.2 K/mm3; Basophils % (Manual) 0 % (0.0-1.8); Eosinophils % (Manual) 0 % (0.0-4.3); Total Cells Counted 100
[2019-02-09 05:03] LABS: Anisocytosis Few; Ovalocytes Few; Poikilocytosis 1+
[2019-02-09 05:04] LABS: Platelet Estimate Consistent w Auto
[2019-02-09] MEDS: DOBUTamine/D5W 500 MG/250 ML 500 MG/250 ML BAG IV SCH ×2 (07:39→14:35)
[2019-02-09] MEDS: NORepinephrine/NS 4 MG-250 ML 4 MG/250 ML BAG IV SCH ×5 (08:14→21:15)
--- NOTE | 2019-02-09 10:36 | Consultation ---
History of Present Illness Consult date: 02/09/19 Requesting physician: LETA CHURCH Reason for consult: other (Acute Hypoxemic Respiratory Failure; Cardiac arrest with ROSC) History of present illness: PULMONARY/CCM CONSULT NOTE (Full dictation # [id number]) Please see dictated notes for full details Past History Past Medical History: other (see HPI) Past Surgical History: No surgical history, Other (reviewed) Social history: single. denies: smoking, alcohol abuse, prescription drug abuse Family history: hypertension Medications and Allergies Allergies Allergy/AdvReac Type Severity Reaction Status Date / Time famotidine [From Pepcid] Allergy Unknown Verified 02/08/19 17:02 Pork/Porcine Containing Allergy Unknown Verified 02/08/19 17:02 Products shellfish derived Allergy Unknown Verified 02/08/19 13:47 spinach Allergy Unknown Verified 02/08/19 17:02 strawberry Allergy Unknown Verified 02/08/19 17:02 Home Medications Medication Instructions Recorded Confirmed Last Taken Type Acetaminophen [Mapap] 650 mg PO Q6H PRN 02/08/19 02/08/19 Unknown History Albuterol Sulfate [Proventil Hfa] 6.7 gm IH Q6H PRN 02/08/19 02/08/19 Unknown History Aspirin [Aspirin BABY CHEW TAB] 81 mg PO QDAY 02/08/19 02/08/19 Unknown History AtorvaSTATin [Lipitor] 10 mg PO QHS 02/08/19 02/08/19 Unknown History Calcium Carbonate [Calcium 600MG 600 mg PO DAILY 02/08/19 02/08/19 Unknown History TAB] Cyclobenzaprine [Flexeril] 10 mg PO BID PRN 02/08/19 02/08/[address] [DepaKOTE DR] 125 mg PO DAILY 02/08/19 02/08/19 Unknown History Divalproex ER [DepaKOTE ER] 500 mg PO QHS 02/08/19 02/08/19 Unknown History Donepezil HCl [Donepezil HCl Odt] 10 mg PO QHS 02/08/19 02/08/19 Unknown History Gabapentin [Neurontin] 300 mg PO DAILY 02/08/19 02/08/19 Unknown History Ibuprofen [Motrin] 800 mg PO Q8HR PRN 02/08/19 02/08/19 Unknown History Latanoprost 0.005% [Xalatan 0.005%] 1 drop OP QHS 02/08/19 02/08/19 Unknown History Lisinopril [Zestril TAB] 40 mg PO QDAY 02/08/19 02/08/19 Unknown History Memantine [Namenda] 10 mg PO BID 02/08/19 02/08/19 Unknown History Pantoprazole Sodium [Protonix] 40 mg PO DAILY 02/08/19 02/08/19 Unknown History Sennosides [Senna] 8.6 mg PO Q6H PRN 02/08/19 02/08/19 Unknown History Sertraline [Zoloft] 125 mg PO QDAY 02/08/19 02/08/19 Unknown History Tiotropium [place] [Spiriva] 18 mcg IH DAILY 02/08/19 02/08/19 Unknown History hydroCHLOROthiazide [HCTZ] 25 mg PO QDAY 02/08/19 02/08/19 Unknown History labetaloL [Labetalol 200mg TAB] 400 mg PO Q8H 02/08/19 02/08/19 Unknown History metFORMIN [Glucophage] 500 mg PO BID 02/08/19 02/08/19 Unknown History Active Meds: Active Medications Heparin Sodium (Porcine) (Heparin) 5,000 unit SUB-Q Q12HR YANNA Last Admin: 02/09/19 02:23 Dose: Not Given Documented by: Norepinephrine (Levophed Drip 4 Mg/Ns 250 Ml) 4 mg in 250 mls @ 7.5 mls/hr IV TITR YANNA; Protocol Last Admin: 02/09/19 08:14 Dose: 30 mcg/min, 112.5 mls/hr Documented by: Dopamine HCl/Dextrose (Intropin Drip 800 Mg/D5w 250 Ml) 800 mg in 250 mls @ 3.274 mls/hr IV TITR ONE; Protocol Stop: 02/11/19 19:36 Last Titration: 02/08/19 20:15 Dose: 20 mcg/kg/min, 32.744 mls/hr Documented by: Levofloxacin/Dextrose (Levaquin 750mg/150ml) 750 mg in 150 mls @ 100 mls/hr IV Q24HR YANNA; Protocol Stop: 02/09/19 23:59 Dobutamine HCl/Dextrose (Dobutrex Drip 500mg/D5w 250ml) 500 mg in 250 mls @ 5. 239 mls/hr IV TITR YANNA; Protocol Last Titration: 02/09/19 08:56 Dose: 20 mcg/kg/min, 52.39 mls/hr Documented by: Sodium Bicarbonate 100 meq/ (Dextrose) 1,100 mls @ 100 mls/hr IV DIRECT YANNA Last Admin: 02/09/19 01:00 Dose: 100 mls/hr Documented by: Levofloxacin/Dextrose (Levaquin 500mg/100ml) 500 mg in 100 mls @ 100 mls/hr IV Q48H YANNA; Protocol Sodium Chloride (Sodium Chloride Flush Syringe 10 Ml) 10 ml IV BID YANNA Last Admin: 02/09/19 10:31 Dose: 10 ml Documented by: Sodium Chloride (Sodium Chloride Flush Syringe 10 Ml) 10 ml IV PRN PRN PRN Reason: LINE FLUSH Physical Examination Vital signs: Vital Signs Pulse BP Pulse Ox 82 63/31 100 02/08/19 13:35 02/08/19 13:35 02/08/19 13:35 Results - Laboratory Findings CBC and BMP: 02/09/19 03:38 02/09/19 03:38 ABG POC ABG pH 7.126 (7.35-7.45) L 02/08/19 14:53 ABG pH 7.106 pH Units (7.350-7.450) L* 02/09/19 00:40 POC ABG pCO2 38.5 (35-45) 02/08/19 14:53 ABG pCO2 35.0 mm Hg 02/09/19 00:40 POC ABG pO2 174 (80-105) H 02/08/19 14:53 ABG pO2 89.4 mm Hg (80.0-90.0) 02/09/19 00:40 POC ABG HCO3 12.7 (22-26 mml/L) 02/08/19 14:53 POC ABG Total CO2 14 (23-27mmol/L) 02/08/19 14:53 POC ABG O2 Sat 99 02/08/19 14:53 ABG O2 Saturation 94.6 % (95.0-99.0) L 02/09/19 00:40 PT/INR, D-dimer PT 16.0 Sec. (12.2-14.9) H 02/08/19 13:15 INR 1.26 (0.87-1.13) H 02/08/19 13:15 Abnormal lab findings: Abnormal Labs 02/08/19 02/08/19 02/08/19 13:15 13:15 13:15 WBC 16.5 H RBC Hgb 9.6 L Hct MCH 25 L RDW 20.5 H Lymph % (Auto) 10.[address] [place] # 0.9 H Seg Neutrophils % 84.0 H Seg Neuts % (Manual) Lymphocytes % (Manual) Nucleated RBC % Seg Neutrophils # 13.8 H Seg Neutrophils # Man PT INR POC ABG pH ABG pH POC ABG pO2 ABG HCO3 ABG O2 Saturation ABG Base Excess ABG Hemoglobin Oxyhemoglobin Sodium Potassium Chloride Carbon Dioxide BUN Creatinine Glucose Lactic Acid 7.30 H* Calcium AST ALT Total Creatine Kinase Troponin T 0.079 H Total Protein Albumin Triglycerides 379 H LDL Cholesterol Direct 16 L HDL Cholesterol 22 L Urine WBC (Auto) U Epithel Cells (Auto) Urine Creatinine Salicylates Acetaminophen 02/08/19 02/08/19 02/08/19 13:15 13:15 13:15 WBC RBC Hgb Hct MCH RDW Lymph % (Auto) [place] # Seg Neutrophils % Seg Neuts % (Manual) Lymphocytes % (Manual) Nucleated RBC % Seg Neutrophils # Seg Neutrophils # Man PT 16.0 H INR 1.26 H POC ABG pH ABG pH POC ABG pO2 ABG HCO3 ABG O2 Saturation ABG Base Excess ABG Hemoglobin Oxyhemoglobin Sodium 150 H Potassium 5.8 H Chloride Carbon Dioxide 16 L BUN 91 H Creatinine 7.6 H Glucose Lactic Acid Calcium AST 157 H ALT 64 H Total Creatine Kinase 9438 H Troponin T Total Protein Albumin Triglycerides LDL Cholesterol Direct HDL Cholesterol Urine WBC (Auto) U Epithel Cells (Auto) Urine Creatinine Salicylates < 0.3 L Acetaminophen 02/08/19 02/08/19 02/08/19 13:15 14:45 14:53 WBC RBC Hgb Hct MCH RDW Lymph % (Auto) [place] # Seg Neutrophils % Seg Neuts % (Manual) Lymphocytes % (Manual) Nucleated RBC % Seg Neutrophils # Seg Neutrophils # Man PT INR POC ABG pH 7.126 L ABG pH POC ABG pO2 174 H ABG HCO3 ABG O2 Saturation ABG Base Excess ABG Hemoglobin Oxyhemoglobin Sodium Potassium Chloride Carbon Dioxide BUN Creatinine Glucose Lactic Acid Calcium AST ALT Total Creatine Kinase Troponin T Total Protein Albumin Triglycerides LDL Cholesterol Direct HDL Cholesterol Urine WBC (Auto) > 182.0 H U Epithel Cells (Auto) 14.0 H Urine Creatinine Salicylates Acetaminophen < 5.0 L 02/08/19 02/08/19 02/08/19 19:54 20:47 23:25 WBC RBC Hgb Hct MCH RDW Lymph % (Auto) [place] # Seg Neutrophils % Seg Neuts % (Manual) Lymphocytes % (Manual) Nucleated RBC % Seg Neutrophils # Seg Neutrophils # Man PT INR POC ABG pH ABG pH POC ABG pO2 ABG HCO3 ABG O2 Saturation ABG Base Excess ABG Hemoglobin Oxyhemoglobin Sodium 150 H Potassium 5.9 H Chloride 109.8 H Carbon Dioxide 11 L BUN 86 H Creatinine 6.2 H Glucose Lactic Acid 6.40 H* 5.40 H* Calcium 6.9 L D AST ALT Total Creatine Kinase Troponin T Total Protein Albumin Triglycerides LDL Cholesterol Direct HDL Cholesterol Urine WBC (Auto) U Epithel Cells (Auto) Urine Creatinine Salicylates Acetaminophen 02/09/19 02/09/19 02/09/19 00:40 02:39 03:38 WBC 19.9 H RBC 3.37 L Hgb 8.8 L Hct 28.6 L MCH 26 L RDW 21.7 H Lymph % (Auto) [place] # Seg Neutrophils % Seg Neuts % (Manual) 82.0 H Lymphocytes % (Manual) 12.0 L Nucleated RBC % 1.0 H Seg Neutrophils # Seg Neutrophils # Man 16.3 H PT INR POC ABG pH ABG pH 7.106 L* POC ABG pO2 ABG HCO3 10.8 L ABG O2 Saturation 94.6 L ABG Base Excess -17.7 L ABG Hemoglobin 10.8 L Oxyhemoglobin 92.7 L Sodium Potassium Chloride Carbon Dioxide BUN Creatinine Glucose Lactic Acid Calcium AST ALT Total Creatine Kinase Troponin T Total Protein Albumin Triglycerides LDL Cholesterol Direct HDL Cholesterol Urine WBC (Auto) U Epithel Cells (Auto) Urine Creatinine 34.3 H Salicylates Acetaminophen 02/09/19 02/09/19 02/09/19 03:38 03:38 07:02 WBC RBC Hgb Hct MCH RDW Lymph % (Auto) [place] # Seg Neutrophils % Seg Neuts % (Manual) Lymphocytes % (Manual) Nucleated RBC % Seg Neutrophils # Seg Neutrophils # Man PT INR POC ABG pH ABG pH POC ABG pO2 ABG HCO3 ABG O2 Saturation ABG Base Excess ABG Hemoglobin Oxyhemoglobin Sodium 148 H Potassium 5.1 H Chloride 110.9 H Carbon Dioxide 14 L BUN 87 H Creatinine 6.4 H Glucose 280 H Lactic Acid 5.10 H* 3.30 H* Calcium 6.7 L AST 329 H ALT 167 H Total Creatine Kinase 49219 H Troponin T Total Protein 5.7 L D Albumin 2.7 L Triglycerides LDL Cholesterol Direct HDL Cholesterol Urine WBC (Auto) U Epithel Cells (Auto) Urine Creatinine Salicylates Acetaminophen
--- NOTE | 2019-02-09 10:44 | Consultation ---
History of Present Illness - Reason for Consult Consult date: 02/09/19 acute renal failure - History of Present Illness The patient is a 63 YO female with history signficant for Dm type 2, HTN, CVA with L hemiplegia, Major depression, muscle contracture, Alzheimers dementia and NH resident who presented to [facility] ED 02/08 for evaluation of AMS and short of breath. In the ED the patient experienced cardiorespiratory arrest. Pt was treated per ACLS protocol with return of perfusing cardiac rhythm. Pt was intubated and placed on vent support. Pt also found to have Septic Shock, initiated on sepsis protocol, treated with IV pressor support and IVF resuscitation therapy. Unable to get any history from patient and there was no family member at the bedside. Pt admitted to ICU. Labs significant for Creat 7.6, K 5.8, Sodium 150, PH 7.1, Lactate 7.3 and bicar 11. Nephrology was consulted for further evaluation. Past History Past Medical History: other (see HPI) Past Surgical History: No surgical history, Other (reviewed) Social history: single. denies: smoking, alcohol abuse, prescription drug abuse Family history: hypertension Medications and Allergies Allergies Allergy/AdvReac Type Severity Reaction Status Date / Time famotidine [From Pepcid] Allergy Unknown Verified 02/08/19 17:02 Pork/Porcine Containing Allergy Unknown Verified 02/08/19 17:02 Products shellfish derived Allergy Unknown Verified 02/08/19 13:47 spinach Allergy Unknown Verified 02/08/19 17:02 strawberry Allergy Unknown Verified 02/08/19 17:02 Home Medications Medication Instructions Recorded Confirmed Last Taken Type Acetaminophen [Mapap] 650 mg PO Q6H PRN 02/08/19 02/08/19 Unknown History Albuterol Sulfate [Proventil Hfa] 6.7 gm IH Q6H PRN 02/08/19 02/08/19 Unknown History Aspirin [Aspirin BABY CHEW TAB] 81 mg PO QDAY 02/08/19 02/08/19 Unknown History AtorvaSTATin [Lipitor] 10 mg PO QHS 02/08/19 02/08/19 Unknown History Calcium Carbonate [Calcium 600MG 600 mg PO DAILY 02/08/19 02/08/19 Unknown History TAB] Cyclobenzaprine [Flexeril] 10 mg PO BID PRN 02/08/19 02/08/[address] [DepaKOTE DR] 125 mg PO DAILY 02/08/19 02/08/19 Unknown History Divalproex ER [DepaKOTE ER] 500 mg PO QHS 02/08/19 02/08/19 Unknown History Donepezil HCl [Donepezil HCl Odt] 10 mg PO QHS 02/08/19 02/08/19 Unknown History Gabapentin [Neurontin] 300 mg PO DAILY 02/08/19 02/08/19 Unknown History Ibuprofen [Motrin] 800 mg PO Q8HR PRN 02/08/19 02/08/19 Unknown History Latanoprost 0.005% [Xalatan 0.005%] 1 drop OP QHS 02/08/19 02/08/19 Unknown History Lisinopril [Zestril TAB] 40 mg PO QDAY 02/08/19 02/08/19 Unknown History Memantine [Namenda] 10 mg PO BID 02/08/19 02/08/19 Unknown History Pantoprazole Sodium [Protonix] 40 mg PO DAILY 02/08/19 02/08/19 Unknown History Sennosides [Senna] 8.6 mg PO Q6H PRN 02/08/19 02/08/19 Unknown History Sertraline [Zoloft] 125 mg PO QDAY 02/08/19 02/08/19 Unknown History Tiotropium [place] [Spiriva] 18 mcg IH DAILY 02/08/19 02/08/19 Unknown History hydroCHLOROthiazide [HCTZ] 25 mg PO QDAY 02/08/19 02/08/19 Unknown History labetaloL [Labetalol 200mg TAB] 400 mg PO Q8H 02/08/19 02/08/19 Unknown History metFORMIN [Glucophage] 500 mg PO BID 02/08/19 02/08/19 Unknown History Active Meds: Active Medications Heparin Sodium (Porcine) (Heparin) 5,000 unit SUB-Q Q12HR YANNA Last Admin: 02/09/19 02:23 Dose: Not Given Documented by: Norepinephrine (Levophed Drip 4 Mg/Ns 250 Ml) 4 mg in 250 mls @ 7.5 mls/hr IV TITR YANNA; Protocol Last Admin: 02/09/19 08:14 Dose: 30 mcg/min, 112.5 mls/hr Documented by: Dopamine HCl/Dextrose (Intropin Drip 800 Mg/D5w 250 Ml) 800 mg in 250 mls @ 3.274 mls/hr IV TITR ONE; Protocol Stop: 02/11/19 19:36 Last Titration: 02/08/19 20:15 Dose: 20 mcg/kg/min, 32.744 mls/hr Documented by: Levofloxacin/Dextrose (Levaquin 750mg/150ml) 750 mg in 150 mls @ 100 mls/hr IV Q24HR YANNA; Protocol Stop: 02/09/19 23:59 Dobutamine HCl/Dextrose (Dobutrex Drip 500mg/D5w 250ml) 500 mg in 250 mls @ 5.239 mls/hr IV TITR YANNA; Protocol Last Titration: 02/09/19 08:56 Dose: 20 mcg/kg/min, 52.39 mls/hr Documented by: Sodium Bicarbonate 100 meq/ (Dextrose) 1,100 mls @ 100 mls/hr IV DIRECT YANNA Last Admin: 02/09/19 01:00 Dose: 100 mls/hr Documented by: Levofloxacin/Dextrose (Levaquin 500mg/100ml) 500 mg in 100 mls @ 100 mls/hr IV Q48H YANNA; Protocol Sodium Chloride (Sodium Chloride Flush Syringe 10 Ml) 10 ml IV BID YANNA Last Admin: 02/09/19 10:31 Dose: 10 ml Documented by: Sodium Chloride (Sodium Chloride Flush Syringe 10 Ml) 10 ml IV PRN PRN PRN Reason: LINE FLUSH Exam - Vital Signs Vital signs: Vital Signs Pulse BP Pulse Ox 82 63/31 100 02/08/19 13:35 02/08/19 13:35 02/08/19 13:35 Results - Lab Results 02/09/19 03:38 02/09/19 03:38 Most recent lab results ABG pH 7.106 pH Units (7.350-7.450) L* 02/09/19 00:40 ABG pCO2 35.0 mm Hg 02/09/19 00:40 ABG pO2 89.4 mm Hg (80.0-90.0) 02/09/19 00:40 ABG HCO3 10.8 mmol/L (20.0-26.0) L 02/09/19 00:40 ABG O2 Saturation 94.6 % (95.0-99.0) L 02/09/19 00:40 Calcium 6.7 mg/dL (8.4-10.2) L 02/09/19 03:38 Magnesium 2.30 mg/dL (1.7-2.3) 02/08/19 13:15 Urine Creatinine 34.3 mg/dL (0.1-20.0) H 02/09/19 02:39 Urine Sodium 119 mmol/L 02/09/19 02:39 Assessment and Plan 1. Acute kidney injury: Vasomotor XUAN in the setting of septic shock and Rhabdomyolysis. Renal US negative for hydronephrosis. Baseline renal function is unknown. Continue IV fluids. Monitor renal function. Renal prognosis is guarded. Avoid nephrotoxic agents. Meds dosage based on GFR. There is more risks than benefits in doing Hemodialysis at this point. 2. FEN: Hyperkalemia, improving. Metabolic acidosis, continue bicarbonate drip. Monitor lytes. 3. Septic shock: Currently pt is on Dobutamine, Dopamine and Levophed. Monitor BP. 4. Respiratory failure: On vent. 5. S/p Cardiac arrest. 6. Anemia: POA.
[2019-02-09] MEDS ORDERED: HEPARIN 5,000 UNIT/1 ML VIAL ONE (10:47)
[2019-02-09] MEDS ORDERED: MIDAZOLAM 2 MG/2 ML INJ IV PRN (11:36)
[2019-02-09] MEDS ORDERED: fentaNYL 100 MCG/2 ML INJ IV PRN (11:36)
[2019-02-09] MEDS ORDERED: LIP THERAPY VASELINE TP PRN (11:36)
[2019-02-09] MEDS ORDERED: MINERAL OIL/PETROLATUM, WHITE OPHTH OINT 3.5 GM OU PRN (11:36)
[2019-02-09] MEDS ORDERED: MIDAZOLAM 100 MG in SODIUM CHLORIDE 0.9% 80 ML IV SCH (12:00)
[2019-02-09] MEDS ORDERED: fentaNYL DRIP Premix 2,000 MCG/100 ML BAG IV SCH (12:00)
[2019-02-09] MEDS ORDERED: VANCOMYCIN/NS 1 GM/250 ML 1 GM/250 ML BAG IV SCH (12:00)
--- NOTE | 2019-02-09 12:19 | XRay Report ---
ABDOMEN 1 VIEW(S) INDICATION / CLINICAL INFORMATION: NGT placement. COMPARISON: None available. FINDINGS: TUBES / LINES: The nasogastric tube terminates in the mid stomach. A right femoral catheter terminate s near the level of S1. BOWEL GAS PATTERN: There is moderate to large fecal material in the rectum. No evidence for obstructi on. FREE AIR / EXTRALUMINAL GAS: None seen. ADDITIONAL FINDINGS: No significant additional findings. IMPRESSION: The nasogastric tube terminates in the mid stomach. Moderate to large stool in the rectum. Signer Name: Miguel Zhao Jr, MD Signed: 02/09/2019 12:15 PM Workstation Name: [id number]
[2019-02-09] MEDS ORDERED: VANCOMYCIN PHARMACY TO DOSE IV SCH (13:00)
[2019-02-09] MEDS: VASOPRESSIN 20 UNIT in SODIUM CHLORIDE 0.9% 100 ML IV SCH ×2 (13:48→22:16)
--- NOTE | 2019-02-09 14:11 | Progress Note ---
Assessment and Plan / s/p Cardiac arrest Pt treated ACLS protocol with return of perfusing cardiac rhythm. admitted to ICU obtain echo, cardiology consult /Acute hypoxic Respiratory failure Pt intubated, sedated, and placed on vent support, serial ABG, daily CXR, wean vent as tolerated, daily SBT, Sedation holiday, pulmonary team consulted. / Sepsis with severe shock likely from UTI and asp PNA cont Sepsis protocol: Iv antibiotic therapy, IVF resuscitation therapy, monitor uop q shift, IV pressor support to maintain MAP greater than 60, serial lactic acid / XUAN (acute kidney injury) IVF resuscitation therapy, monitor uop q shift, BMP in the am,Nephrology consulted in ED, renal ultrasound /Acute metabolic Encephalopathy CT head pending, cont neuro check, supportive care, IVF resuscitation therapy, / Metabolic acidosis IV bicarbonate therapy, serial lactic acid / UTI (urinary tract infection) IV antibiotic therapy, urine cx, /Elevated transaminases, - likely related to rhabdomyolysis, ordered hepatitis panel /Rhabdomyolysis, likely from cardiac arrest, cont iv fluid / DVT prophylaxis SCD to BLE while in bed, prophylactic heparin The high probability of a clinically significant, sudden or life threatening deterioration of the [Neuro, respiratory, renal] system(s) required my full and direct attention, intervention and personal management. The aggregate critical care time was [35] minutes. This time is in addition to time spent performing reported procedures but includes the following: [x] Data Review and interpretation [x] Patient assessment and monitoring of vital signs [x] Documentation [x] Medication orders and management Subjective Date of service: 02/09/19 Interval history: patient seen and examined remained intubated, and sedated on multiple pressors no family at bedside discussed with RN Objective - Exam Narrative Exam: Constitutional: unresponsive, intubated Head, Ears, Nose: Normocephalic, atraumatic. External ears, nose normal Eyes: Conjunctivae/corneas clear. No icterus. No ptosis. Neck: intubated Oral: intubated, dry lips and tongue Cardiovascular: S1, S2 normal. Respiratory: Good air entry, coarse BS auscultation bilaterally GI: firm, slightly distended, bowel sounds normal. No peritoneal signs Musculoskeletal: No pedal edema, no cyanosis. Skin: No rash or abscess Psych: no agitation Neurological: unresponsive, intubated, on vent - Constitutional Vitals: Vital Signs - 12hr 02/09/19 02/09/19 02/09/19 02:10 02:16 02:20 Pulse Rate 108 H 110 H 107 H Respiratory 21 19 26 H Rate Blood Pressure 108/51 116/36 105/51 Blood Pressure [Left] O2 Sat by Pulse Oximetry 02/09/19 02/09/19 02/09/19 02:26 02:30 02:36 Pulse Rate 108 H 108 H 109 H Respiratory 19 22 19 Rate Blood Pressure 108/57 105/55 90/60 Blood Pressure [Left] O2 Sat by Pulse Oximetry 02/09/19 02/09/19 02/09/19 02:40 02:45 02:50 Pulse Rate 108 H 102 H 102 H Respiratory 16 18 24 Rate Blood Pressure 94/52 80/42 84/41 Blood Pressure [Left] O2 Sat by Pulse Oximetry 02/09/19 02/09/19 02/09/19 02:51 02:56 03:00 Pulse Rate 102 H 106 H 108 H Respiratory 17 20 13 Rate Blood Pressure 75/51 85/52 Blood Pressure 85/46 [Left] O2 Sat by Pulse 96 95 Oximetry 02/09/19 02/09/19 02/09/19 03:06 03:10 03:16 Pulse Rate 109 H 109 H 109 H Respiratory 22 18 18 Rate Blood Pressure 82/52 87/54 85/55 Blood Pressure [Left] O2 Sat by Pulse 96 96 Oximetry 02/09/19 02/09/19 02/09/19 03:26 03:30 03:36 Pulse Rate 110 H 109 H 110 H Respiratory 20 14 23 Rate Blood Pressure 85/55 87/57 92/56 Blood Pressure [Left] O2 Sat by Pulse Oximetry 02/09/19 02/09/19 02/09/19 03:40 03:45 03:50 Pulse Rate 110 H 109 H 109 H Respiratory 20 20 21 Rate Blood Pressure 96/54 90/54 89/56 Blood Pressure [Left] O2 Sat by Pulse Oximetry 02/09/19 02/09/19 02/09/19 03:56 04:00 04:06 Pulse Rate 109 H 109 H 109 H Respiratory 20 19 20 Rate Blood Pressure 86/56 95/56 86/56 Blood Pressure [Left] O2 Sat by Pulse Oximetry 02/09/19 02/09/19 02/09/19 04:10 04:15 04:20 Pulse Rate 108 H 108 H 108 H Respiratory 19 21 19 Rate Blood Pressure 92/56 86/56 89/56 Blood Pressure [Left] O2 Sat by Pulse Oximetry 02/09/19 02/09/19 02/09/19 04:25 04:30 04:35 Pulse Rate 108 H 108 H 108 H Respiratory 20 21 20 Rate Blood Pressure 86/56 88/55 91/55 Blood Pressure [Left] O2 Sat by Pulse Oximetry 02/09/19 02/09/19 02/09/19 04:40 04:45 04:50 Pulse Rate 108 H 108 H 107 H Respiratory 19 20 20 Rate Blood Pressure 79/58 91/55 92/56 Blood Pressure [Left] O2 Sat by Pulse Oximetry 02/09/19 02/09/19 02/09/19 04:55 05:00 05:05 Pulse Rate 107 H 107 H 107 H Respiratory 17 21 19 Rate Blood Pressure 91/55 88/55 87/57 Blood Pressure [Left] O2 Sat by Pulse Oximetry 02/09/19 02/09/19 02/09/19 05:10 05:15 05:20 Pulse Rate 108 H 107 H 107 H Respiratory 22 19 20 Rate Blood Pressure 94/55 89/56 82/55 Blood Pressure [Left] O2 Sat by Pulse Oximetry 02/09/19 02/09/19 02/09/19 05:25 05:30 05:35 Pulse Rate 107 H 107 H 107 H Respiratory 20 22 21 Rate Blood Pressure 94/58 89/56 86/56 Blood Pressure [Left] O2 Sat by Pulse Oximetry 02/09/19 02/09/19 02/09/19 05:40 05:45 05:50 Pulse Rate 107 H 107 H 106 H Respiratory 19 20 21 Rate Blood Pressure 88/55 86/56 88/55 Blood Pressure [Left] O2 Sat by Pulse Oximetry 02/09/19 02/09/19 02/09/19 05:55 06:00 06:05 Pulse Rate 106 H 106 H 106 H Respiratory 20 19 17 Rate Blood Pressure 86/56 89/56 88/55 Blood Pressure [Left] O2 Sat by Pulse Oximetry 02/09/19 02/09/19 02/09/19 06:10 06:15 06:20 Pulse Rate 106 H 106 H 106 H Respiratory 21 21 17 Rate Blood Pressure 87/57 84/57 95/59 Blood Pressure [Left] O2 Sat by Pulse Oximetry 02/09/19 02/09/19 02/09/19 06:25 06:30 06:35 Pulse Rate 106 H 106 H 106 H Respiratory 20 20 16 Rate Blood Pressure 98/56 108/57 117/59 Blood Pressure [Left] O2 Sat by Pulse Oximetry 02/09/19 02/09/19 02/09/19 06:40 06:45 06:50 Pulse Rate 105 H 105 H 105 H Respiratory 20 12 21 Rate Blood Pressure 113/55 114/56 114/56 Blood Pressure [Left] O2 Sat by Pulse 97 98 Oximetry 02/09/19 02/09/19 02/09/19 06:55 07:00 07:05 Pulse Rate 105 H 105 H 101 H Respiratory 21 21 21 Rate Blood Pressure 121/58 115/55 95/50 Blood Pressure [Left] O2 Sat by Pulse 98 97 Oximetry 02/09/19 02/09/19 02/09/19 07:10 07:15 07:20 Pulse Rate 96 H 84 70 Respiratory 21 19 12 Rate Blood Pressure 78/45 61/37 62/33 Blood Pressure [Left] O2 Sat by Pulse Oximetry 02/09/19 02/09/19 02/09/19 07:26 07:30 07:36 Pulse Rate 72 73 71 Respiratory 11 L 20 15 Rate Blood Pressure 61/30 73/37 62/28 Blood Pressure [Left] O2 Sat by Pulse 94 Oximetry 02/09/19 02/09/19 02/09/19 07:40 07:45 07:50 Pulse Rate 86 98 H 93 H Respiratory 19 16 14 Rate Blood Pressure 62/28 107/57 91/41 Blood Pressure [Left] O2 Sat by Pulse Oximetry 02/09/19 02/09/19 02/09/19 07:56 08:00 08:06 Pulse Rate 92 H 91 H 89 Respiratory 11 L 13 15 Rate Blood Pressure 91/41 91/41 67/29 Blood Pressure [Left] O2 Sat by Pulse 97 Oximetry 02/09/19 02/09/19 02/09/19 08:10 08:15 08:20 Pulse Rate 89 91 H 92 H Respiratory 25 H 13 14 Rate Blood Pressure 67/29 79/40 87/30 Blood Pressure [Left] O2 Sat by Pulse 65 L 98 93 Oximetry 02/09/19 02/09/19 02/09/19 08:25 08:30 08:35 Pulse Rate 98 H 101 H 102 H Respiratory 15 19 18 Rate Blood Pressure 94/51 89/53 104/56 Blood Pressure [Left] O2 Sat by Pulse 97 99 Oximetry 02/09/19 02/09/19 02/09/19 08:40 08:43 08:45 Pulse Rate 103 H 102 H 102 H Respiratory 20 17 Rate Blood Pressure 103/51 110/56 110/56 Blood Pressure [Left] O2 Sat by Pulse 99 99 99 Oximetry 02/09/19 02/09/19 02/09/19 08:50 08:55 09:00 Pulse Rate 104 H 105 H 105 H Respiratory 15 15 11 L Rate Blood Pressure 120/61 116/60 118/62 Blood Pressure [Left] O2 Sat by Pulse 100 99 99 Oximetry 02/09/19 11:35 Pulse Rate 100 H Respiratory Rate Blood Pressure 99/55 Blood Pressure [Left] O2 Sat by Pulse 97 Oximetry - Labs CBC & Chem 7: 02/10/19 04:25 02/10/19 04:25 Labs: Abnormal lab results 02/08/19 02/08/19 02/08/19 Range/Units 13:15 13:15 13:15 WBC 16.5 H (4.5-11.0) K/mm3 RBC (3.65-5.03) M/mm3 Hgb 9.6 L (10.1-14.3) gm/dl Hct (30.3-42.9) % MCH 25 L (28-32) pg RDW 20.5 H (13.2-15.2) % Lymph % (Auto) 10.5 L (13.4-35.0) % Seg Neuts % (Manual) (40.0-70.0) % Lymphocytes % (Manual) (13.4-35.0) % Nucleated RBC % (0.0-0.9) % Seg Neutrophils # Man (1.8-7.7) K/mm3 PT (12.2-14.9) Sec. INR (0.87-1.13) POC ABG pH (7.35-7.45) ABG pH (7.350-7.450) pH Units POC ABG pO2 (80-105) ABG HCO3 (20.0-26.0) mmol/L ABG O2 Saturation (95.0-99.0) % ABG Base Excess (-2.0-3.0) mmol/L ABG Hemoglobin (12.0-16.0) gm/dl Oxyhemoglobin (95.0-99.0) % Sodium (137-145) mmol/L Potassium (3.6-5.0) mmol/L Chloride (98-107) mmol/L Carbon Dioxide (22-30) mmol/L BUN (7-17) mg/dL Creatinine (0.7-1.2) mg/dL Glucose (65-100) mg/dL Lactic Acid 7.30 H* (0.7-2.0) mmol/L Calcium (8.4-10.2) mg/dL AST (5-40) units/L ALT (7-56) units/L Total Creatine Kinase (30-135) units/L Troponin T 0.079 H (0.00-0.029) ng/mL Total Protein (6.3-8.2) g/dL Albumin (3.9-5) g/dL Triglycerides 379 H (2-149) mg/dL LDL Cholesterol Direct 16 L (50-130) mg/dL HDL Cholesterol 22 L (40-59) mg/dL Urine WBC (Auto) (0.0-6.0) /HPF U Epithel Cells (Auto) (0-13.0) /HPF Urine Creatinine (0.1-20.0) mg/dL Salicylates (2.8-20.0) mg/dL Acetaminophen (10.0-30.0) ug/mL 02/08/19 02/08/19 02/08/19 Range/Units 13:15 13:15 13:15 WBC (4.5-11.0) K/mm3 RBC (3.65-5.03) M/mm3 Hgb (10.1-14.3) gm/dl Hct (30.3-42.9) % MCH (28-32) pg RDW (13.2-15.2) % Lymph % (Auto) (13.4-35.0) % Seg Neuts % (Manual) (40.0-70.0) % Lymphocytes % (Manual) (13.4-35.0) % Nucleated RBC % (0.0-0.9) % Seg Neutrophils # Man (1.8-7.7) K/mm3 PT 16.0 H (12.2-14.9) Sec. INR 1.26 H (0.87-1.13) POC ABG pH (7.35-7.45) ABG pH (7.350-7.450) pH Units POC ABG pO2 (80-105) ABG HCO3 (20.0-26.0) mmol/L ABG O2 Saturation (95.0-99.0) % ABG Base Excess (-2.0-3.0) mmol/L ABG Hemoglobin (12.0-16.0) gm/dl Oxyhemoglobin (95.0-99.0) % Sodium 150 H (137-145) mmol/L Potassium 5.8 H (3.6-5.0) mmol/L Chloride (98-107) mmol/L Carbon Dioxide 16 L (22-30) mmol/L BUN 91 H (7-17) mg/dL Creatinine 7.6 H (0.7-1.2) mg/dL Glucose (65-100) mg/dL Lactic Acid (0.7-2.0) mmol/L Calcium (8.4-10.2) mg/dL AST 157 H (5-40) units/L ALT 64 H (7-56) units/L Total Creatine Kinase 9438 H (30-135) units/L Troponin T (0.00-0.029) ng/mL Total Protein (6.3-8.2) g/dL Albumin (3.9-5) g/dL Triglycerides (2-149) mg/dL LDL Cholesterol Direct (50-130) mg/dL HDL Cholesterol (40-59) mg/dL Urine WBC (Auto) (0.0-6.0) /HPF U Epithel Cells (Auto) (0-13.0) /HPF Urine Creatinine (0.1-20.0) mg/dL Salicylates < 0.3 L (2.8-20.0) mg/dL Acetaminophen (10.0-30.0) ug/mL 02/08/19 02/08/19 02/08/19 Range/Units 13:15 14:45 14:53 WBC (4.5-11.0) K/mm3 RBC (3.65-5.03) M/mm3 Hgb (10.1-14.3) gm/dl Hct (30.3-42.9) % MCH (28-32) pg RDW (13.2-15.2) % Lymph % (Auto) (13.4-35.0) % Seg Neuts % (Manual) (40.0-70.0) % Lymphocytes % (Manual) (13.4-35.0) % Nucleated RBC % (0.0-0.9) % Seg Neutrophils # Man (1.8-7.7) K/mm3 PT (12.2-14.9) Sec. INR (0.87-1.13) POC ABG pH 7.126 L (7.35-7.45) ABG pH (7.350-7.450) pH Units POC ABG pO2 174 H (80-105) ABG HCO3 (20.0-26.0) mmol/L ABG O2 Saturation (95.0-99.0) % ABG Base Excess (-2.0-3.0) mmol/L ABG Hemoglobin (12.0-16.0) gm/dl Oxyhemoglobin (95.0-99.0) % Sodium (137-145) mmol/L Potassium (3.6-5.0) mmol/L Chloride (98-107) mmol/L Carbon Dioxide (22-30) mmol/L BUN (7-17) mg/dL Creatinine (0.7-1.2) mg/dL Glucose (65-100) mg/dL Lactic Acid (0.7-2.0) mmol/L Calcium (8.4-10.2) mg/dL AST (5-40) units/L ALT (7-56) units/L Total Creatine Kinase (30-135) units/L Troponin T (0.00-0.029) ng/mL Total Protein (6.3-8.2) g/dL Albumin (3.9-5) g/dL Triglycerides (2-149) mg/dL LDL Cholesterol Direct (50-130) mg/dL HDL Cholesterol (40-59) mg/dL Urine WBC (Auto) > 182.0 H (0.0-6.0) /HPF U Epithel Cells (Auto) 14.0 H (0-13.0) /HPF Urine Creatinine (0.1-20.0) mg/dL Salicylates (2.8-20.0) mg/dL Acetaminophen < 5.0 L (10.0-30.0) ug/mL 02/08/19 02/08/19 02/08/19 Range/Units 19:54 20:47 23:25 WBC (4.5-11.0) K/mm3 RBC (3.65-5.03) M/mm3 Hgb (10.1-14.3) gm/dl Hct (30.3-42.9) % MCH (28-32) pg RDW (13.2-15.2) % Lymph % (Auto) (13.4-35.0) % Seg Neuts % (Manual) (40.0-70.0) % Lymphocytes % (Manual) (13.4-35.0) % Nucleated RBC % (0.0-0.9) % Seg Neutrophils # Man (1.8-7.7) K/mm3 PT (12.2-14.9) Sec. INR (0.87-1.13) POC ABG pH (7.35-7.45) ABG pH (7.350-7.450) pH Units POC ABG pO2 (80-105) ABG HCO3 (20.0-26.0) mmol/L ABG O2 Saturation (95.0-99.0) % ABG Base Excess (-2.0-3.0) mmol/L ABG Hemoglobin (12.0-16.0) gm/dl Oxyhemoglobin (95.0-99.0) % Sodium 150 H (137-145) mmol/L Potassium 5.9 H (3.6-5.0) mmol/L Chloride 109.8 H (98-107) mmol/L Carbon Dioxide 11 L (22-30) mmol/L BUN 86 H (7-17) mg/dL Creatinine 6.2 H (0.7-1.2) mg/dL Glucose (65-100) mg/dL Lactic Acid 6.40 H* 5.40 H* (0.7-2.0) mmol/L Calcium 6.9 L D (8.4-10.2) mg/dL AST (5-40) units/L ALT (7-56) units/L Total Creatine Kinase (30-135) units/L Troponin T (0.00-0.029) ng/mL Total Protein (6.3-8.2) g/dL Albumin (3.9-5) g/dL Triglycerides (2-149) mg/dL LDL Cholesterol Direct (50-130) mg/dL HDL Cholesterol (40-59) mg/dL Urine WBC (Auto) (0.0-6.0) /HPF U Epithel Cells (Auto) (0-13.0) /HPF Urine Creatinine (0.1-20.0) mg/dL Salicylates (2.8-20.0) mg/dL Acetaminophen (10.0-30.0) ug/mL 02/09/19 02/09/19 02/09/19 Range/Units 00:40 02:39 03:38 WBC 19.9 H (4.5-11.0) K/mm3 RBC 3.37 L (3.65-5.03) M/mm3 Hgb 8.8 L (10.1-14.3) gm/dl Hct 28.6 L (30.3-42.9) % MCH 26 L (28-32) pg RDW 21.7 H (13.2-15.2) % Lymph % (Auto) (13.4-35.0) % Seg Neuts % (Manual) 82.0 H (40.0-70.0) % Lymphocytes % (Manual) 12.0 L (13.4-35.0) % Nucleated RBC % 1.0 H (0.0-0.9) % Seg Neutrophils # Man 16.3 H (1.8-7.7) K/mm3 PT (12.2-14.9) Sec. INR (0.87-1.13) POC ABG pH (7.35-7.45) ABG pH 7.106 L* (7.350-7.450) pH Units POC ABG pO2 (80-105) ABG HCO3 10.8 L (20.0-26.0) mmol/L ABG O2 Saturation 94.6 L (95.0-99.0) % ABG Base Excess -17.7 L (-2.0-3.0) mmol/L ABG Hemoglobin 10.8 L (12.0-16.0) gm/dl Oxyhemoglobin 92.7 L (95.0-99.0) % Sodium (137-145) mmol/L Potassium (3.6-5.0) mmol/L Chloride (98-107) mmol/L Carbon Dioxide (22-30) mmol/L BUN (7-17) mg/dL Creatinine (0.7-1.2) mg/dL Glucose (65-100) mg/dL Lactic Acid (0.7-2.0) mmol/L Calcium (8.4-10.2) mg/dL AST (5-40) units/L ALT (7-56) units/L Total Creatine Kinase (30-135) units/L Troponin T (0.00-0.029) ng/mL Total Protein (6.3-8.2) g/dL Albumin (3.9-5) g/dL Triglycerides (2-149) mg/dL LDL Cholesterol Direct (50-130) mg/dL HDL Cholesterol (40-59) mg/dL Urine WBC (Auto) (0.0-6.0) /HPF U Epithel Cells (Auto) (0-13.0) /HPF Urine Creatinine 34.3 H (0.1-20.0) mg/dL Salicylates (2.8-20.0) mg/dL Acetaminophen (10.0-30.0) ug/mL 02/09/19 02/09/19 02/09/19 Range/Units 03:38 03:38 07:02 WBC (4.5-11.0) K/mm3 RBC (3.65-5.03) M/mm3 Hgb (10.1-14.3) gm/dl Hct (30.3-42.9) % MCH (28-32) pg RDW (13.2-15.2) % Lymph % (Auto) (13.4-35.0) % Seg Neuts % (Manual) (40.0-70.0) % Lymphocytes % (Manual) (13.4-35.0) % Nucleated RBC % (0.0-0.9) % Seg Neutrophils # Man (1.8-7.7) K/mm3 PT (12.2-14.9) Sec. INR (0.87-1.13) POC ABG pH (7.35-7.45) ABG pH (7.350-7.450) pH Units POC ABG pO2 (80-105) ABG HCO3 (20.0-26.0) mmol/L ABG O2 Saturation (95.0-99.0) % ABG Base Excess (-2.0-3.0) mmol/L ABG Hemoglobin (12.0-16.0) gm/dl Oxyhemoglobin (95.0-99.0) % Sodium 148 H (137-145) mmol/L Potassium 5.1 H (3.6-5.0) mmol/L Chloride 110.9 H (98-107) mmol/L Carbon Dioxide 14 L (22-30) mmol/L BUN 87 H (7-17) mg/dL Creatinine 6.4 H (0.7-1.2) mg/dL Glucose 280 H (65-100) mg/dL Lactic Acid 5.10 H* 3.30 H* (0.7-2.0) mmol/L Calcium 6.7 L (8.4-10.2) mg/dL AST 329 H (5-40) units/L ALT 167 H (7-56) units/L Total Creatine Kinase 64599 H (30-135) units/L Troponin T (0.00-0.029) ng/mL Total Protein 5.7 L D (6.3-8.2) g/dL Albumin 2.7 L (3.9-5) g/dL Triglycerides (2-149) mg/dL LDL Cholesterol Direct (50-130) mg/dL HDL Cholesterol (40-59) mg/dL Urine WBC (Auto) (0.0-6.0) /HPF U Epithel Cells (Auto) (0-13.0) /HPF Urine Creatinine (0.1-20.0) mg/dL Salicylates (2.8-20.0) mg/dL Acetaminophen (10.0-30.0) ug/mL 02/09/19 02/09/19 Range/Units 11:37 11:41 WBC (4.5-11.0) K/mm3 RBC (3.65-5.03) M/mm3 Hgb (10.1-14.3) gm/dl Hct (30.3-42.9) % MCH (28-32) pg RDW (13.2-15.2) % Lymph % (Auto) (13.4-35.0) % Seg Neuts % (Manual) (40.0-70.0) % Lymphocytes % (Manual) (13.4-35.0) % Nucleated RBC % (0.0-0.9) % Seg Neutrophils # Man (1.8-7.7) K/mm3 PT (12.2-14.9) Sec. INR (0.87-1.13) POC ABG pH 7.174 L (7.35-7.45) ABG pH (7.350-7.450) pH Units POC ABG pO2 (80-105) ABG HCO3 (20.0-26.0) mmol/L ABG O2 Saturation (95.0-99.0) % ABG Base Excess (-2.0-3.0) mmol/L ABG Hemoglobin (12.0-16.0) gm/dl Oxyhemoglobin (95.0-99.0) % Sodium (137-145) mmol/L Potassium (3.6-5.0) mmol/L Chloride (98-107) mmol/L Carbon Dioxide (22-30) mmol/L BUN (7-17) mg/dL Creatinine (0.7-1.2) mg/dL Glucose (65-100) mg/dL Lactic Acid 3.60 H* (0.7-2.0) mmol/L Calcium (8.4-10.2) mg/dL AST (5-40) units/L ALT (7-56) units/L Total Creatine Kinase (30-135) units/L Troponin T (0.00-0.029) ng/mL Total Protein (6.3-8.2) g/dL Albumin (3.9-5) g/dL Triglycerides (2-149) mg/dL LDL Cholesterol Direct (50-130) mg/dL HDL Cholesterol (40-59) mg/dL Urine WBC (Auto) (0.0-6.0) /HPF U Epithel Cells (Auto) (0-13.0) /HPF Urine Creatinine (0.1-20.0) mg/dL Salicylates (2.8-20.0) mg/dL Acetaminophen (10.0-30.0) ug/mL
[2019-02-09] MEDS: SODIUM BICARBONATE 150 MEQ in DEXTROSE 5% IN WATER 1,000 ML IV SCH ×2 (14:15→23:32)
--- NOTE | 2019-02-09 17:59 | Consultation ---
History of Present Illness - Reason for Consult Consult date: 02/09/19 Septic shock Requesting physician: ASHLEY SIDDIQUI - History of Present Illness The patient is a 63-year-old female who is a correction resident with CVA, diabetes mellitus, hypertension, dementia was brought into the emergency room on 02/08/2019 with altered mental status and respiratory distress. In the emergency room, the patient had a cardiac arrest requiring ACLS protocol. She was intubated and placed on mechanical ventilation. She was also persistently hypotensive requiring IV fluids and pressors. Labs showed leukocytosis, significant rhabdomyolysis, acute renal failure and acidosis. Infectious diseases was consulted for antibiotic recommendations. Patient is currently on multiple pressors, remains unresponsive and intubated. Review of Systems: Unresponsive and intubated, unable to provide history and review of systems. Past History Past Medical History: other (see HPI) Past Surgical History: No surgical history, Other (reviewed) Social history: single. denies: smoking, alcohol abuse, prescription drug abuse Family history: hypertension Medications and Allergies Allergies Allergy/AdvReac Type Severity Reaction Status Date / Time famotidine [From Pepcid] Allergy Unknown Verified 02/08/19 17:02 Pork/Porcine Containing Allergy Unknown Verified 02/08/19 17:02 Products shellfish derived Allergy Unknown Verified 02/08/19 13:47 spinach Allergy Unknown Verified 02/08/19 17:02 strawberry Allergy Unknown Verified 02/08/19 17:02 Home Medications Medication Instructions Recorded Confirmed Last Taken Type Acetaminophen [Mapap] 650 mg PO Q6H PRN 02/08/19 02/08/19 Unknown History Albuterol Sulfate [Proventil Hfa] 6.7 gm IH Q6H PRN 02/08/19 02/08/19 Unknown History Aspirin [Aspirin BABY CHEW TAB] 81 mg PO QDAY 02/08/19 02/08/19 Unknown History AtorvaSTATin [Lipitor] 10 mg PO QHS 02/08/19 02/08/19 Unknown History Calcium Carbonate [Calcium 600MG 600 mg PO DAILY 02/08/19 02/08/19 Unknown History TAB] Cyclobenzaprine [Flexeril] 10 mg PO BID PRN 02/08/19 02/08/[address] [DepaKOTE DR] 125 mg PO DAILY 02/08/19 02/08/19 Unknown History Divalproex ER [DepaKOTE ER] 500 mg PO QHS 02/08/19 02/08/19 Unknown History Donepezil HCl [Donepezil HCl Odt] 10 mg PO QHS 02/08/19 02/08/19 Unknown History Gabapentin [Neurontin] 300 mg PO DAILY 02/08/19 02/08/19 Unknown History Ibuprofen [Motrin] 800 mg PO Q8HR PRN 02/08/19 02/08/19 Unknown History Latanoprost 0.005% [Xalatan 0.005%] 1 drop OP QHS 02/08/19 02/08/19 Unknown History Lisinopril [Zestril TAB] 40 mg PO QDAY 02/08/19 02/08/19 Unknown History Memantine [Namenda] 10 mg PO BID 02/08/19 02/08/19 Unknown History Pantoprazole Sodium [Protonix] 40 mg PO DAILY 02/08/19 02/08/19 Unknown History Sennosides [Senna] 8.6 mg PO Q6H PRN 02/08/19 02/08/19 Unknown History Sertraline [Zoloft] 125 mg PO QDAY 02/08/19 02/08/19 Unknown History Tiotropium Dorado [Spiriva] 18 mcg IH DAILY 02/08/19 02/08/19 Unknown History hydroCHLOROthiazide [HCTZ] 25 mg PO QDAY 02/08/19 02/08/19 Unknown History labetaloL [Labetalol 200mg TAB] 400 mg PO Q8H 02/08/19 02/08/19 Unknown History metFORMIN [Glucophage] 500 mg PO BID 02/08/19 02/08/19 Unknown History Active Meds: Active Medications Fentanyl (Sublimaze) 50 mcg IV Q10MIN PRN PRN Reason: ANALGESIA Heparin Sodium (Porcine) (Heparin) 5,000 unit SUB-Q Q12HR YANNA Last Admin: 02/09/19 11:07 Dose: 5,000 unit Documented by: Hydrophilic Ointment (Vaseline Lip Therapy) 1 applic TP Q2HR PRN PRN Reason: Dry Lips Norepinephrine (Levophed Drip 4 Mg/Ns 250 Ml) 4 mg in 250 mls @ 7.5 mls/hr IV TITR YANNA; Protocol Last Titration: 02/09/19 15:25 Dose: 22 mcg/min, 82.5 mls/hr Documented by: Dopamine HCl/Dextrose (Intropin Drip 800 Mg/D5w 250 Ml) 800 mg in 250 mls @ 3.274 mls/hr IV TITR ONE; Protocol Stop: 02/11/19 19:36 Last Titration: 02/09/19 12:59 Dose: 2 mcg/kg/min, 3.274 mls/hr Documented by: Levofloxacin/Dextrose (Levaquin 750mg/150ml) 750 mg in 150 mls @ 100 mls/hr IV Q24HR YANNA; Protocol Stop: 02/09/19 23:59 Last Admin: 02/09/19 11:07 Dose: 100 mls/hr Documented by: Dobutamine HCl/Dextrose (Dobutrex Drip 500mg/D5w 250ml) 500 mg in 250 mls @ 5.239 mls/hr IV TITR YANNA; Protocol Last Titration: 02/09/19 16:47 Dose: 5 mcg/kg/min, 13.098 mls/hr Documented by: Levofloxacin/Dextrose (Levaquin 500mg/100ml) 500 mg in 100 mls @ 100 mls/hr IV Q48H YANNA; Protocol Fentanyl Citrate (Fentanyl Drip Premix) 2,000 mcg in 100 mls @ 4.366 mls/hr IV TITR YANNA; Protocol Midazolam HCl 100 mg/ Sodium (Chloride) 100 mls @ 2 mls/hr IV TITR YANNA; Protocol Cefepime HCl (Cefepime/Ns 1 Gm/100 Ml) 1 gm in 100 mls @ 200 mls/hr IV Q24HR YANNA; Protocol Vasopressin 20 unit/ Sodium (Chloride) 101 mls @ 9.09 mls/hr IV TITR YANNA; Protocol Last Titration: 02/09/19 15:25 Dose: 0.03 units/min, 9.09 mls/hr Documented by: Sodium Bicarbonate 150 meq/ (Dextrose) 1,150 mls @ 150 mls/hr IV DIRECT YANNA Last Admin: 02/09/19 14:15 Dose: 150 mls/hr Documented by: Midazolam HCl (Versed) 2 mg IV Q10MIN PRN PRN Reason: Sedation Multi-Ingred Cream/Lotion/Oil/Oint (Artificial Tears Ophth Oint) 1 applic OU Q4HR PRN PRN Reason: Dry Eye(s) Pantoprazole Sodium (Protonix) 40 mg IV QDAY [facility] Sodium Chloride (Sodium Chloride Flush Syringe 10 Ml) 10 ml IV BID [facility] Last Admin: 02/09/19 10:31 Dose: 10 ml Documented by: Sodium Chloride (Sodium Chloride Flush Syringe 10 Ml) 10 ml IV PRN PRN PRN Reason: LINE FLUSH Physical Examination - Physical Exam Narrative exam: Physical Exam: Constitutional: unresponsive, intubated Head, Ears, Nose: Normocephalic, atraumatic. External ears, nose normal Eyes: Conjunctivae/corneas clear. No icterus. No ptosis. Neck: intubated Oral: intubated Cardiovascular: S1, S2 normal. Respiratory: Good air entry, clear to auscultation bilaterally GI: firm, slightly distended, bowel sounds normal. No peritoneal signs Musculoskeletal: No pedal edema, no cyanosis. Skin: No rash or abscess Hem/Lymphatic: No palpable cervical or supraclavicular nodes. No lymphangitis Psych: no agitation Neurological: unresponsive, intubated, on vent - Constitutional Vitals: Vital Signs Temp Pulse Resp BP Pulse Ox 96.7 F L 97 H 13 188/160 99 02/08/19 14:29 02/09/19 17:31 02/09/19 17:31 02/09/19 17:31 02/09/19 17:31 Results - Labs CBC & Chem 7: 02/09/19 03:38 02/09/19 03:38 Labs: Abnormal lab results 02/08/19 02/08/19 02/08/19 Range/Units 19:54 20:47 23:25 WBC (4.5-11.0) K/mm3 RBC (3.65-5.03) M/mm3 Hgb (10.1-14.3) gm/dl Hct (30.3-42.9) % MCH (28-32) pg RDW (13.2-15.2) % Seg Neuts % (Manual) (40.0-70.0) % Lymphocytes % (Manual) (13.4-35.0) % Nucleated RBC % (0.0-0.9) % Seg Neutrophils # Man (1.8-7.7) K/mm3 POC ABG pH (7.35-7.45) ABG pH (7.350-7.450) pH Units ABG HCO3 (20.0-26.0) mmol/L ABG O2 Saturation (95.0-99.0) % ABG Base Excess (-2.0-3.0) mmol/L ABG Hemoglobin (12.0-16.0) gm/dl Oxyhemoglobin (95.0-99.0) % Sodium 150 H (137-145) mmol/L Potassium 5.9 H (3.6-5.0) mmol/L Chloride 109.8 H (98-107) mmol/L Carbon Dioxide 11 L (22-30) mmol/L BUN 86 H (7-17) mg/dL Creatinine 6.2 H (0.7-1.2) mg/dL Glucose (65-100) mg/dL Lactic Acid 6.40 H* 5.40 H* (0.7-2.0) mmol/L Calcium 6.9 L D (8.4-10.2) mg/dL AST (5-40) units/L ALT (7-56) units/L Total Creatine Kinase (30-135) units/L Total Protein (6.3-8.2) g/dL Albumin (3.9-5) g/dL Urine Creatinine (0.1-20.0) mg/dL 02/09/19 02/09/19 02/09/19 Range/Units 00:40 02:39 03:38 WBC 19.9 H (4.5-11.0) K/mm3 RBC 3.37 L (3.65-5.03) M/mm3 Hgb 8.8 L (10.1-14.3) gm/dl Hct 28.6 L (30.3-42.9) % MCH 26 L (28-32) pg RDW 21.7 H (13.2-15.2) % Seg Neuts % (Manual) 82.0 H (40.0-70.0) % Lymphocytes % (Manual) 12.0 L (13.4-35.0) % Nucleated RBC % 1.0 H (0.0-0.9) % Seg Neutrophils # Man 16.3 H (1.8-7.7) K/mm3 POC ABG pH (7.35-7.45) ABG pH 7.106 L* (7.350-7.450) pH Units ABG HCO3 10.8 L (20.0-26.0) mmol/L ABG O2 Saturation 94.6 L (95.0-99.0) % ABG Base Excess -17.7 L (-2.0-3.0) mmol/L ABG Hemoglobin 10.8 L (12.0-16.0) gm/dl Oxyhemoglobin 92.7 L (95.0-99.0) % Sodium (137-145) mmol/L Potassium (3.6-5.0) mmol/L Chloride (98-107) mmol/L Carbon Dioxide (22-30) mmol/L BUN (7-17) mg/dL Creatinine (0.7-1.2) mg/dL Glucose (65-100) mg/dL Lactic Acid (0.7-2.0) mmol/L Calcium (8.4-10.2) mg/dL AST (5-40) units/L ALT (7-56) units/L Total Creatine Kinase (30-135) units/L Total Protein (6.3-8.2) g/dL Albumin (3.9-5) g/dL Urine Creatinine 34.3 H (0.1-20.0) mg/dL 02/09/19 02/09/19 02/09/19 Range/Units 03:38 03:38 07:02 WBC (4.5-11.0) K/mm3 RBC (3.65-5.03) M/mm3 Hgb (10.1-14.3) gm/dl Hct (30.3-42.9) % MCH (28-32) pg RDW (13.2-15.2) % Seg Neuts % (Manual) (40.0-70.0) % Lymphocytes % (Manual) (13.4-35.0) % Nucleated RBC % (0.0-0.9) % Seg Neutrophils # Man (1.8-7.7) K/mm3 POC ABG pH (7.35-7.45) ABG pH (7.350-7.450) pH Units ABG HCO3 (20.0-26.0) mmol/L ABG O2 Saturation (95.0-99.0) % ABG Base Excess (-2.0-3.0) mmol/L ABG Hemoglobin (12.0-16.0) gm/dl Oxyhemoglobin (95.0-99.0) % Sodium 148 H (137-145) mmol/L Potassium 5.1 H (3.6-5.0) mmol/L Chloride 110.9 H (98-107) mmol/L Carbon Dioxide 14 L (22-30) mmol/L BUN 87 H (7-17) mg/dL Creatinine 6.4 H (0.7-1.2) mg/dL Glucose 280 H (65-100) mg/dL Lactic Acid 5.10 H* 3.30 H* (0.7-2.0) mmol/L Calcium 6.7 L (8.4-10.2) mg/dL AST 329 H (5-40) units/L ALT 167 H (7-56) units/L Total Creatine Kinase 00125 H (30-135) units/L Total Protein 5.7 L D (6.3-8.2) g/dL Albumin 2.7 L (3.9-5) g/dL Urine Creatinine (0.1-20.0) mg/dL 02/09/19 02/09/19 02/09/19 Range/Units 11:37 11:41 15:56 WBC (4.5-11.0) K/mm3 RBC (3.65-5.03) M/mm3 Hgb (10.1-14.3) gm/dl Hct (30.3-42.9) % MCH (28-32) pg RDW (13.2-15.2) % Seg Neuts % (Manual) (40.0-70.0) % Lymphocytes % (Manual) (13.4-35.0) % Nucleated RBC % (0.0-0.9) % Seg Neutrophils # Man (1.8-7.7) K/mm3 POC ABG pH 7.174 L (7.35-7.45) ABG pH (7.350-7.450) pH Units ABG HCO3 (20.0-26.0) mmol/L ABG O2 Saturation (95.0-99.0) % ABG Base Excess (-2.0-3.0) mmol/L ABG Hemoglobin (12.0-16.0) gm/dl Oxyhemoglobin (95.0-99.0) % Sodium (137-145) mmol/L Potassium (3.6-5.0) mmol/L Chloride (98-107) mmol/L Carbon Dioxide (22-30) mmol/L BUN (7-17) mg/dL Creatinine (0.7-1.2) mg/dL Glucose (65-100) mg/dL Lactic Acid 3.60 H* 7.10 H* (0.7-2.0) mmol/L Calcium (8.4-10.2) mg/dL AST (5-40) units/L ALT (7-56) units/L Total Creatine Kinase (30-135) units/L Total Protein (6.3-8.2) g/dL Albumin (3.9-5) g/dL Urine Creatinine (0.1-20.0) mg/dL - Imaging and Cardiology Chest x-ray: report reviewed, image reviewed (bilateral effusions) Assessment and Plan Cultures: 02/08/2019 blood culture: 1 out of 4 bottles positive for GPC in clusters 02/08/2019 tracheal aspirate: In process A/P: 63-year-old female who is a correction resident with CVA, diabetes mellitus, hypertension, dementia was brought into the emergency room on 02/08/2019 with altered mental status and respiratory distress. In the emergency room, the patient had a cardiac arrest requiring ACLS protocol. Now with: #Septic shock, status post cardiac arrest: multiple pressors, leucocytosis. Abdo firm and slightly distended. UA with significant pyuria. #GPC bacteremia: unclear source. Follow culture results. #Possible urinary tract infection: UA showed pyuria. Follow up culture. #Acute renal failure, severe rhabdomyolysis: renally dose abx. #Elevated transaminases, likely related to rhabdomyolysis #Acute respiratory failure: on the vent Recs: renally adjusted Cefepime, Vancomycin, Flagyl CT abdomen and pelvis without contrast when stable enough to be transported follow up cultures poor prognosis Enrique Devlin MD, FACP [facility] ([facility]) C: [phone] O: [phone] F: [phone]
[2019-02-09 20:01] LABS: Hepatitis B Surface Antigen Non-Reactive (Negative); Hepatitis C Virus Antibody Reactive (NonReactive)
--- NOTE | 2019-02-09 21:01 | Consultation ---
PULMONARY CRITICAL CARE CONSULT NOTE CONSULTING PHYSICIAN: Dr. Acuna. REASON FOR CONSULTATION: Status post cardiac arrest with return of spontaneous circulation, acute hypoxemic respiratory failure, on mechanical ventilatory support, septic shock. CHIEF COMPLAINT AND HISTORY OF PRESENT ILLNESS: The patient is a 63-year-old -[place] female, correction resident past medical history significant amongst other things for a prior cerebrovascular accident and obese, came into the Emergency Room, she was intubated. The EMS had mentioned to the staff that she was in her usual state of health until she was acutely found confused and short of breath when in the ED during the course of her initial evaluation, she experienced a cardiopulmonary arrest. ACLS protocol was initiated. She was resuscitated. She was diagnosed with septic shock. She was volume resuscitated. She also had an acute hypoxemic respiratory failure. We were not informed about this patient until early this morning, at which time I came down to see her in the Emergency Room. When I stopped by to see her, she was resting in bed. She had myoclonic type jerks to the right side, the right upper extremity in particular suggesting a prior left hemiparesis. She was on multiple vasopressors. She had received empiric antibiotic therapy. That really is as much of the history of presentation as I have. PAST MEDICAL HISTORY: Again, significant for a diagnosis of obesity, cerebrovascular accident. PAST SURGICAL HISTORY: Unknown. MEDICATIONS: She was on at the time I stopped by to see her were reviewed. Pertinent medications included the following: She was on a dobutamine drip at 20 mcg/kilogram per minute. She was on dopamine at 2 mcg/kg per minute. She had just been weaned off dopamine according to the nurse. Heparin was 5000 units subQ q. 12 hours, Levaquin 750 mg IV daily. Levophed drip was maxed at 30 mcg per minute. She was on a sodium bicarbonate drip at 100 mEq per liter. ALLERGIES: PEPCID, TO PORK PRODUCTS, SHELLFISH. Nature of this allergy is unknown. DIET: Morbidly obese, acute weight loss or gain history is unknown. FAMILY AND SOCIAL HISTORY: intermediate resident. The records denies alcohol, tobacco, or illicit drug use or abuse. There is a family history of hypertension. REVIEW OF SYSTEMS: Unobtainable secondary to patient's medical and mental condition. Since she has been here, no gross hematochezia or melena has been reported. No gross hematuria, no hematemesis, no bloody tracheal secretions, no witnessed seizures. Review of systems otherwise as in the body of history above or unobtainable. PHYSICAL EXAMINATION: VITAL SIGNS: At presentation in the Emergency Room, she was afebrile, temperature was 96.7 degrees Fahrenheit rectally, pulse of 82, respiratory rate reported as 18, blood pressure was 61/24 at presentation. When I stopped by to see her, mean arterial pressure was about 6-7 on the above-mentioned vasopressors. GENERAL: Elderly looking obese -[place] female, normocephalic, atraumatic, riding the set rate on the mechanical ventilator without significant patient ventilator dyssynchrony. HEAD, EYES, EARS, NOSE AND THROAT: She was anicteric, no conjunctival erythema. Oropharynx was moist. Endotracheal tube was in place, taped at the lips around 23-24 cm. Large neck circumference. No gross jugular venous distention. NECK: Grossly, there were no palpable lymph nodes in the supraclavicular or submandibular lymph node chains. LUNGS: Auscultation of both lung barfield significant for scant bibasilar rhonchi, but really clear mostly no wheezing. HEART: Heart sounds 1 and 2 are heard. They were regular in rate and rhythm at the time of my evaluation without overt rubs or murmurs. ABDOMEN: Soft, full, bowel sounds are positive, nontender, no palpable hepatosplenomegaly. EXTREMITIES: Without overt digital clubbing, no cyanosis, no pedal edema. Pedal pulses were 2+ bilaterally. NEUROLOGIC: Pupils were equal, round, about 4 mm, very sluggishly, if at all, reactive to light. Extraocular muscle movements cannot be evaluated. NEUROLOGICAL: She was moving the right side, the right upper extremity in particular with intermittent myoclonic type jerks not following any commands. Mood and affect could not be evaluated as she was essentially obtunded. SKIN: Normal turgor in the areas examined without overt cellulitis or rash. Please see wound care notes for details. LABORATORY DATA: From my review are as follows: Admission white cell count 16,500 with a hemoglobin of 9.6, hematocrit of 31.7, platelet count of 284. No band forms were reported initially. INR 1.26. Arterial blood gas showed a pH of 7.13, pCO2 of 39, pO2 of 174 that was on 100% FiO2. Vent settings at that time assist control mode of ventilation, tidal volumes I believe 450, rate of 18, PEEP of 6. Serum sodium was 150, potassium was 5.8, chloride was 100, bicarbonate was 16, BUN was 91, creatinine was 7.6, glucose was 89. Lactic acid level was 7.3. AST 157, ALT 64. CPK at 9438. Troponin 0.079. LDL cholesterol was 16. Urinalysis showed moderate leukocyte esterase, greater than 182 white cells per high power field, 4+ bacteremia. Aspirin, Tylenol levels were nondetectable. Blood cultures, according to the nurse, there is a report of Gram-positives. Actually, she is growing Gram-positive cocci in clusters in 1 of 2 blood culture bottles that have been drawn. A chest x-ray was done, rotated to the left, cardiomegaly, possible left pleural effusion. ET tube is about 2-3 cm above the angela, basilar plate-like atelectasis involving the right lower lobe in particular. No gross pneumothorax, no gross bony fracture. An NG tube is seen coursing through the mediastinum. I do not see a KUB. ASSESSMENT: 1. Acute hypoxemic respiratory failure, on mechanical ventilatory support. 2. Cardiac arrest, status post return of spontaneous circulation. 3. Septic shock, presumably due to fall. 4. Urinary tract infection. 5. Acute kidney injury, possibly on chronic. 6. Acute encephalopathy, possibly on chronic. 7. History of cerebrovascular accident. 8. Obesity. 9. Hyperkalemia at presentation. 10. Hyponatremia. 11. Lactic acidosis. 12. Elevated serum transaminases. 13. Non-ST elevation myocardial infarction, possibly demand type 2. 14. Oropharyngeal dysphagia. PLAN: She appears to be the volume resuscitation, appears to be headed in the right direction. I do not have a noninvasive hemodynamic monitors or central venous pressures to follow at this time. I have asked the nurse to start titrating down the dobutamine. I do not have any history of congestive heart failure in this lady or any particular need for inotropic support. A 2D echocardiogram will be ordered. All the same, she has not been admitted to this facility before. Cardiology evaluation will be appropriate. I will repeat the cardiac enzymes. From a respiratory standpoint, Stat ABG has been ordered. I will empirically increase the minute ventilation to complete compensate for the severe metabolic acidosis. Oxygen will be weaned to keep sats greater than or equal to about 90%. Aspiration precautions also been maintained. Lung protective started strategies will be instituted. Bronchodilators will be ordered and with pulmonary hygiene per the respiratory therapist. Daily sats and spontaneous breathing trial assessments will be instituted as early as tomorrow. I doubt we are dealing with venous thromboembolic disorders, but I certainly cannot rule this out. The old picture looks right at this point like septic shock. Again, we will try and get some parameters to monitor resuscitation with for now, we will follow the lactic acid levels. From an infectious disease standpoint, ID consultation will be placed. I will get a procalcitonin level and along with lactic acid level used to aid clinical decision making. Empirically, she will be started on vancomycin and I will broaden the antibiotic to cefepime empirically pending the consultation from the Infectious Disease physician. From a GI standpoint, enteral nutrition will be the feeding modality of choice. She will be placed on GI prophylaxis. From a renal standpoint, I believe Nephrology consultation has been placed. Fractional excretion of sodium has been calculated. We will continue the bicarbonate drip, but I will increase the bicarbonate. I will change it to 3 amps of sodium bicarbonate per liter of fluid and run it at about 50 mL per hour in the short term. We will use free water through the NG tube to address the hyponatremia in the short term. I will begin trickle feeding at night. Hopefully, she will be able to get her off the vasopressors quickly. From a neurologic standpoint, Neurology consultation obviously will be at the behest will be of benefit. Once she is more stable, CT scan will be done. Flu and pneumonia vaccination will be addressed per protocol. I will be making further recommendations as picture progresses/becomes clearer. Thank you very much for the consult Dr. Vega and Dr. Acuna. We will follow along and make further recommendations as picture progresses/becomes clearer. She is critically ill on life-sustaining interventions including mechanical ventilatory support and vasopressors at high risk of from cardiopulmonary system decompensation. At this time, I spent about 35-40 minutes of critical care time without overlap and excluding any procedural time that may be necessary. JOB# [id number] JUAN/MARIA ESTHER
[2019-02-09] MEDS: FREE WATER PO SCH (22:13)
[2019-02-10] MEDS: NORepinephrine/NS 4 MG-250 ML 4 MG/250 ML BAG IV SCH ×6 (00:51→21:52)
[2019-02-10] MEDS: DOBUTamine/D5W 500 MG/250 ML 500 MG/250 ML BAG IV SCH ×2 (00:54→17:36)
[2019-02-10] MEDS ORDERED: CALCIUM GLUCONATE 2,000 MG in SODIUM CHLORIDE 0.9% 100 ML IV ONE (01:25)
[2019-02-10] MEDS: FREE WATER PO SCH ×5 (02:43→21:34)
--- NOTE | 2019-02-10 03:14 | XRay Report ---
CHEST 1 VIEW INDICATION / CLINICAL INFORMATION: follow up respiratory failure. COMPARISON: 02/08/2019 FINDINGS: SUPPORT DEVICES: Endotracheal tube remains in place as well as NG tube. HEART / MEDIASTINUM: No significant abnormality. LUNGS / PLEURA: Bibasilar lung consolidation is again seen left greater than right. This appears esse ntially unchanged. Upper lungs are clear. Small effusions appear present. No pneumothorax. ADDITIONAL FINDINGS: No significant additional findings. IMPRESSION: 1. No significant change Signer Name: Willis Rose MD Signed: 02/10/2019 3:09 AM Workstation Name: [id number]
[2019-02-10] MEDS: ACETAMINOPHEN 325 MG TAB PO PRN ×2 (04:13→19:05)
[2019-02-10 05:05] LABS: Hemoglobin 8.4 gm/dl (10.1-14.3); Mean Corpuscular HGB Conc 31 % (30-34); Mean Corpuscular Volume 81 fl (79-97); Platelet Count 155 K/mm3 (140-440); Red Blood Count 3.33 M/mm3 (3.65-5.03); Red Cell Distribution Width 20.9 % (13.2-15.2)
[2019-02-10 05:29] LABS: Albumin 2.3 g/dL (3.9-5); Calcium 6.3 mg/dL (8.4-10.2)
[2019-02-10 05:51] LABS: Band Neutrophils # (Manual) 0.1 K/mm3; Basophils % (Manual) 0 % (0.0-1.8); Eosinophils % (Manual) 0 % (0.0-4.3); Total Cells Counted 100
[2019-02-10 05:52] LABS: Anisocytosis Few
[2019-02-10 05:53] LABS: Ovalocytes Few; Platelet Estimate Consistent w Auto; Poikilocytosis Few
[2019-02-10] MEDS ORDERED: SODIUM CHLORIDE 0.9% 250ML 250 ML IV ONE (05:58)
[2019-02-10] MEDS: SODIUM BICARBONATE 150 MEQ in DEXTROSE 5% IN WATER 1,000 ML IV SCH ×2 (08:01→17:43)
[2019-02-10] MEDS: VASOPRESSIN 20 UNIT in SODIUM CHLORIDE 0.9% 100 ML IV SCH ×3 (08:02→21:32)
[2019-02-10] MEDS ORDERED: VANCOMYCIN 1,250 MG in SODIUM CHLORIDE 0.9% 250ML 250 ML IV ONE (09:00)
[2019-02-10] MEDS: PANTOPRAZOLE 40 MG INJ IV SCH (09:02)
[2019-02-10] MEDS: CEFEPIME/NS 1 GM/100 ML 1 GM/100 ML BAG IV SCH ×2 (09:05→09:06)
[2019-02-10] MEDS: HEPARIN 5,000 UNIT/1 ML VIAL SUB-Q SCH ×2 (09:07→21:31)
--- NOTE | 2019-02-10 11:10 | Progress Note ---
Assessment and Plan s/p Cardiopulmoanry arrest with ROSC -Severe sepsis with septic shock -Acute hypoxemic respiratory failure on MVS -GPC bacteremia, unclear source -Acute renal failure- vasomotor nephropathy/Rhabdomyolysis -Elevated transaminases -h/o CVA -Hyernatremia- improved PLAN - Wean vasopressor support for MAP>65, currently on vasopressin, norepinephrine and dobutamine. wean dobutamine to off first -With elvated base excess, lactic acidosis and hypotension- she remains intravascularly depleted, will give 1L of LR now -Volume resuscitation per sepsis protocol -VAP bundle addressed -Aspiration precautions, HOB>40 degrees - Lung protective strategies -Adjust minute ventilation for better acid-base balance -CXR, ABG in am -CBC, BMP and lactic acid at 6pm - Assessment daily for suitability for SAT, SBT as tolerate -Trophic tube feedings for 24 hours, will reassess in the morning -Keep off sedation to allow for evaluation of mental status, hold fentanyl -Broad spectrum per ID antibiotics . Currently on Cefepime, Levofloxacin and Vancomycin, de-escalate based on cultures and clinical status -Place on contact isolation, until the GPC are identified. She is a high risk patient for MRSA -VTE prophylaxis( heparin BID) -Stress ulcer prophylaxis( pantoprazola) - Accuchecks with glycemic control for SSI (While critically ill target blood glucose of 140-180 mg/dL; avoid hypoglycemia) - mobility protocol for pressure ulcer prevention - Monitor hemodynamics closely -Monitor electrolyte profile closely and replete as indicated -Chronic home medications, resume as clinically indicated -Hold off on CT scan of the abdomen today as her hemodynamics are unstable. She is on high ventilatory settings and is unstable for transport. -Ledezma catheter in this critically ill patient, with poor urine output, requiring accurate intake and output monitoring. - Decrease free water flushes to 200ml, hypernatremia has improved -Change right groin line to a IJ or SVC- she may need it changed to a trialysis catheter. -Follow up on transthoracic echo report CONDITION: CRITICAL PROGNOSIS: GUARDED-POOR CODE STATUS: FULL CODE The high probability of a clinically significant, sudden or life-threatening deterioration of the [respiratory, cardiovascular, renal, neurology] system(s) required my full and direct attention, intervention and personal management. The aggregate critical care time was [65] minutes without overlap. Time includes spent on; [x] Data Review and interpretation [x] Patient assessment and monitoring of vital signs [x] Documentation [x] Medication orders and management Subjective Date of service: 02/10/19 Interval history: 63-year-old female who is a long-term resident with CVA residual left hemiparesis/hemiplegia, diabetes mellitus, hypertension, dementia was brought into the emergency room on 02/08/2019 with altered mental status and respiratory distress. In the emergency room, the patient had a cardiac arrest requiring ACLS protocol. Seen and examined at bedside; 24hour events reviewed; nursing and respiratory care staff consulted; discussed in ICU -IDT rounds. Currently on dobutamine, norepinephrine and vasopressin. Just had bedside transthoracic echocardiogram done. On Fentanyl at 1mcg/hour. Has right groin femoral CVC, adn a ledezma catheter in. Currently on AC-VC 30/550/6/60% ABG 7.26/24/90/11.6 BE-15 Vitals, labs, medications, chart and imaging reviewed Objective - Exam Narrative Exam: Constitutional: unresponsive, intubated ETT at 23cm at the lip Head, Ears, Nose: Normocephalic, atraumatic. External ears, nose normal Eyes: Conjunctivae/corneas clear. No icterus. No ptosis. Neck: intubated Oral: intubated, dry lips and tongue with blueish discoloration of lips Cardiovascular: S1, S2 normal. Respiratory: Good air entry, coarse BS auscultation bilaterally GI: firm, slightly distended, bowel sounds normal. No peritoneal signs Musculoskeletal: No pedal edema, no cyanosis. Skin: No rash or abscess Psych: no agitation Neurological: unresponsive, intubated, on vent Vital Signs - 12hr 02/09/19 02/09/19 02/09/19 23:15 23:17 23:25 Temperature 98.1 F Pulse Rate 98 H 98 H Respiratory 19 11 L Rate Blood Pressure 114/73 114/73 O2 Sat by Pulse 98 99 Oximetry 02/09/19 02/09/19 02/09/19 23:29 23:30 23:45 Temperature Pulse Rate 98 H 98 H 98 H Respiratory 13 13 Rate Blood Pressure 114/73 116/66 102/65 O2 Sat by Pulse 98 96 97 Oximetry 02/10/19 02/10/19 02/10/19 00:00 00:15 00:30 Temperature Pulse Rate 99 H 99 H 100 H Respiratory 14 19 11 L Rate Blood Pressure 118/71 107/71 111/60 O2 Sat by Pulse 99 99 Oximetry 02/10/19 02/10/19 02/10/19 00:45 01:00 01:15 Temperature Pulse Rate 100 H 99 H 99 H Respiratory 15 16 18 Rate Blood Pressure 102/66 105/68 114/68 O2 Sat by Pulse 100 100 Oximetry 02/10/19 02/10/19 02/10/19 01:30 01:45 02:00 Temperature Pulse Rate 100 H 100 H 99 H Respiratory 15 15 25 H Rate Blood Pressure 114/72 98/62 115/52 O2 Sat by Pulse 100 95 Oximetry 02/10/19 02/10/19 02/10/19 02:15 02:30 02:45 Temperature Pulse Rate 99 H 99 H 103 H Respiratory 18 19 14 Rate Blood Pressure 110/63 121/67 123/71 O2 Sat by Pulse Oximetry 02/10/19 02/10/19 02/10/19 03:01 03:06 03:15 Temperature Pulse Rate 103 H 103 H 102 H Respiratory 16 12 Rate Blood Pressure 111/58 111/58 103/67 O2 Sat by Pulse 63 L Oximetry 02/10/19 02/10/19 02/10/19 03:26 03:30 03:45 Temperature 102.2 F H Pulse Rate 102 H 101 H Respiratory 16 20 Rate Blood Pressure 120/71 118/74 O2 Sat by Pulse Oximetry 02/10/19 02/10/19 02/10/19 04:00 04:15 04:30 Temperature Pulse Rate 101 H 101 H 98 H Respiratory 12 13 15 Rate Blood Pressure 118/71 120/76 99/50 O2 Sat by Pulse 100 100 68 L Oximetry 02/10/19 02/10/19 02/10/19 04:45 05:00 05:15 Temperature Pulse Rate 101 H 100 H 100 H Respiratory 14 17 13 Rate Blood Pressure 116/68 122/73 133/79 O2 Sat by Pulse 100 99 Oximetry 02/10/19 02/10/19 02/10/19 05:30 05:45 06:00 Temperature Pulse Rate 100 H 100 H 100 H Respiratory 14 19 17 Rate Blood Pressure 133/77 141/77 134/76 O2 Sat by Pulse 100 100 100 Oximetry 02/10/19 02/10/1902/10/19 06:15 06:30 06:45 Temperature Pulse Rate 102 H 101 H 102 H Respiratory 20 16 22 Rate Blood Pressure 134/76 107/61 100/61 O2 Sat by Pulse 99 93 Oximetry 02/10/19 02/10/19 02/10/19 07:00 07:15 07:30 Temperature Pulse Rate 102 H 102 H 103 H Respiratory 20 16 12 Rate Blood Pressure 103/59 94/49 101/58 O2 Sat by Pulse 100 Oximetry 02/10/19 02/10/19 02/10/19 07:45 08:00 08:15 Temperature 100.2 F H Pulse Rate 102 H 103 H 102 H Respiratory 12 13 16 Rate Blood Pressure 113/66 99/63 98/58 O2 Sat by Pulse Oximetry 02/10/19 02/10/19 02/10/19 08:30 08:45 09:00 Temperature Pulse Rate 102 H 102 H 102 H Respiratory 24 17 14 Rate Blood Pressure 104/59 109/61 95/52 O2 Sat by Pulse Oximetry 02/10/19 02/10/19 02/10/19 09:15 09:30 09:45 Temperature Pulse Rate 102 H 102 H 101 H Respiratory 17 19 16 Rate Blood Pressure 109/59 94/54 95/50 O2 Sat by Pulse 98 Oximetry 02/10/19 02/10/19 02/10/19 10:00 10:15 10:30 Temperature Pulse Rate 101 H 102 H 102 H Respiratory 13 18 14 Rate Blood Pressure 101/54 95/55 99/56 O2 Sat by Pulse 56 L 97 Oximetry CBC and BMP: 02/11/19 06:00 02/11/19 06:00 ABG, PT/INR, D-dimer: ABG POC ABG pH 7.287 (7.35-7.45) L 02/10/19 04:52 ABG pH 7.106 pH Units (7.350-7.450) L* 02/09/19 00:40 POC ABG pCO2 24.3 (35-45) L 02/10/19 04:52 ABG pCO2 35.0 mm Hg 02/09/19 00:40 POC ABG pO2 90 (80-105) 02/10/19 04:52 ABG pO2 89.4 mm Hg (80.0-90.0) 02/09/19 00:40 POC ABG HCO3 11.6 (22-26 mml/L) 02/10/19 04:52 POC ABG Total CO2 12 (23-27mmol/L) 02/10/19 04:52 POC ABG O2 Sat 96 02/10/19 04:52 ABG O2 Saturation 94.6 % (95.0-99.0) L 02/09/19 00:40 PT/INR, D-dimer PT 16.0 Sec. (12.2-14.9) H 02/08/19 13:15 INR 1.26 (0.87-1.13) H 02/08/19 13:15 Abnormal lab findings: Abnormal Labs 02/08/19 02/08/19 02/08/19 13:15 13:15 13:15 WBC 16.5 H RBC Hgb 9.6 L Hct MCH 25 L RDW 20.5 H Lymph % (Auto) 10.5 L [place] # 0.9 H Seg Neutrophils % 84.0 H Seg Neuts % (Manual) Lymphocytes % (Manual) Nucleated RBC % Seg Neutrophils # 13.8 H Seg Neutrophils # Man Lymphocytes # (Manual) PT INR POC ABG pH ABG pH POC ABG pCO2 POC ABG pO2 ABG HCO3 ABG O2 Saturation ABG Base Excess ABG Hemoglobin Oxyhemoglobin Sodium Potassium Chloride Carbon Dioxide BUN Creatinine Glucose Lactic Acid 7.30 H* Calcium AST ALT Total Creatine Kinase Troponin T 0.079 H Total Protein Albumin Triglycerides 379 H LDL Cholesterol Direct 16 L HDL Cholesterol 22 L Urine WBC (Auto) U Epithel Cells (Auto) Urine Creatinine Salicylates Acetaminophen Hepatitis C Antibody 02/08/19 02/08/19 02/08/19 13:15 13:15 13:15 WBC RBC Hgb Hct MCH RDW Lymph % (Auto) [place] # Seg Neutrophils % Seg Neuts % (Manual) Lymphocytes % (Manual) Nucleated RBC % Seg Neutrophils # Seg Neutrophils # Man Lymphocytes # (Manual) PT 16.0 H INR 1.26 H POC ABG pH ABG pH POC ABG pCO2 POC ABG pO2 ABG HCO3 ABG O2 Saturation ABG Base Excess ABG Hemoglobin Oxyhemoglobin Sodium 150 H Potassium 5.8 H Chloride Carbon Dioxide 16 L BUN 91 H Creatinine 7.6 H Glucose Lactic Acid Calcium AST 157 H ALT 64 H Total Creatine Kinase 9438 H Troponin T Total Protein Albumin Triglycerides LDL Cholesterol Direct HDL Cholesterol Urine WBC (Auto) U Epithel Cells (Auto) Urine Creatinine Salicylates < 0.3 L Acetaminophen Hepatitis C Antibody 02/08/19 02/08/19 02/08/19 13:15 14:45 14:53 WBC RBC Hgb Hct MCH RDW Lymph % (Auto) [place] # Seg Neutrophils % Seg Neuts % (Manual) Lymphocytes % (Manual) Nucleated RBC % Seg Neutrophils # Seg Neutrophils # Man Lymphocytes # (Manual) PT INR POC ABG pH 7.126 L ABG pH POC ABG pCO2 POC ABG pO2 174 H ABG HCO3 ABG O2 Saturation ABG Base Excess ABG Hemoglobin Oxyhemoglobin Sodium Potassium Chloride Carbon Dioxide BUN Creatinine Glucose Lactic Acid Calcium AST ALT Total Creatine Kinase Troponin T Total Protein Albumin Triglycerides LDL Cholesterol Direct HDL Cholesterol Urine WBC (Auto) > 182.0 H U Epithel Cells (Auto) 14.0 H Urine Creatinine Salicylates Acetaminophen < 5.0 L Hepatitis C Antibody 02/08/19 02/08/19 02/08/19 19:54 20:47 23:25 WBC RBC Hgb Hct MCH RDW Lymph % (Auto) [place] # Seg Neutrophils % Seg Neuts % (Manual) Lymphocytes % (Manual) Nucleated RBC % Seg Neutrophils # Seg Neutrophils # Man Lymphocytes # (Manual) PT INR POC ABG pH ABG pH POC ABG pCO2 POC ABG pO2 ABG HCO3 ABG O2 Saturation ABG Base Excess ABG Hemoglobin Oxyhemoglobin Sodium 150 H Potassium 5.9 H Chloride 109.8 H Carbon Dioxide 11 L BUN 86 H Creatinine 6.2 H Glucose Lactic Acid 6.40 H* 5.40 H* Calcium 6.9 L D AST ALT Total Creatine Kinase Troponin T Total Protein Albumin Triglycerides LDL Cholesterol Direct HDL Cholesterol Urine WBC (Auto) U Epithel Cells (Auto) Urine Creatinine Salicylates Acetaminophen Hepatitis C Antibody 02/09/19 02/09/19 02/09/19 00:40 02:39 03:38 WBC 19.9 H RBC 3.37 L Hgb 8.8 L Hct 28.6 L MCH 26 L RDW 21.7 H Lymph % (Auto) [place] # Seg Neutrophils % Seg Neuts % (Manual) 82.0 H Lymphocytes % (Manual) 12.0 L Nucleated RBC % 1.0 H Seg Neutrophils # Seg Neutrophils # Man 16.3 H Lymphocytes # (Manual) PT INR POC ABG pH ABG pH 7.106 L* POC ABG pCO2 POC ABG pO2 ABG HCO3 10.8 L ABG O2 Saturation 94.6 L ABG Base Excess -17.7 L ABG Hemoglobin 10.8 L Oxyhemoglobin 92.7 L Sodium Potassium Chloride Carbon Dioxide BUN Creatinine Glucose Lactic Acid Calcium AST ALT Total Creatine Kinase Troponin T Total Protein Albumin Triglycerides LDL Cholesterol Direct HDL Cholesterol Urine WBC (Auto) U Epithel Cells (Auto) Urine Creatinine 34.3 H Salicylates Acetaminophen Hepatitis C Antibody 02/09/19 02/09/19 02/09/19 03:38 03:38 07:02 WBC RBC Hgb Hct MCH RDW Lymph % (Auto) [place] # Seg Neutrophils % Seg Neuts % (Manual) Lymphocytes % (Manual) Nucleated RBC % Seg Neutrophils # Seg Neutrophils # Man Lymphocytes # (Manual) PT INR POC ABG pH ABG pH POC ABG pCO2 POC ABG pO2 ABG HCO3 ABG O2 Saturation ABG Base Excess ABG Hemoglobin Oxyhemoglobin Sodium 148 H Potassium 5.1 H Chloride 110.9 H Carbon Dioxide 14 L BUN 87 H Creatinine 6.4 H Glucose 280 H Lactic Acid 5.10 H* 3.30 H* Calcium 6.7 L AST 329 H ALT 167 H Total Creatine Kinase 35459 H Troponin T Total Protein 5.7 L D Albumin 2.7 L Triglycerides LDL Cholesterol Direct HDL Cholesterol Urine WBC (Auto) U Epithel Cells (Auto) Urine Creatinine Salicylates Acetaminophen Hepatitis C Antibody 02/09/19 02/09/19 02/09/19 11:37 11:41 15:56 WBC RBC Hgb Hct MCH RDW Lymph % (Auto) [place] # Seg Neutrophils % Seg Neuts % (Manual) Lymphocytes % (Manual) Nucleated RBC % Seg Neutrophils # Seg Neutrophils # Man Lymphocytes # (Manual) PT INR POC ABG pH 7.174 L ABG pH POC ABG pCO2 POC ABG pO2 ABG HCO3 ABG O2 Saturation ABG Base Excess ABG Hemoglobin Oxyhemoglobin Sodium Potassium Chloride Carbon Dioxide BUN Creatinine Glucose Lactic Acid 3.60 H* 7.10 H* Calcium AST ALT Total Creatine Kinase Troponin T Total Protein Albumin Triglycerides LDL Cholesterol Direct HDL Cholesterol Urine WBC (Auto) U Epithel Cells (Auto) Urine Creatinine Salicylates Acetaminophen Hepatitis C Antibody 02/09/19 02/09/19 02/09/19 19:18 19:18 22:20 WBC RBC Hgb Hct MCH RDW Lymph % (Auto) [place] # Seg Neutrophils % Seg Neuts % (Manual) Lymphocytes % (Manual) Nucleated RBC % Seg Neutrophils # Seg Neutrophils # Man Lymphocytes # (Manual) PT INR POC ABG pH 7.294 L ABG pH POC ABG pCO2 24.0 L POC ABG pO2 166 H ABG HCO3 ABG O2 Saturation ABG Base Excess ABG Hemoglobin Oxyhemoglobin Sodium Potassium Chloride Carbon Dioxide BUN Creatinine Glucose Lactic Acid 6.10 H* Calcium AST ALT Total Creatine Kinase Troponin T Total Protein Albumin Triglycerides LDL Cholesterol Direct HDL Cholesterol Urine WBC (Auto) U Epithel Cells (Auto) Urine Creatinine Salicylates Acetaminophen Hepatitis C Antibody Reactive A 02/09/19 02/10/19 02/10/19 23:00 04:25 04:25 WBC RBC Hgb Hct MCH RDW Lymph % (Auto) [place] # Seg Neutrophils % Seg Neuts % (Manual) Lymphocytes % (Manual) Nucleated RBC % Seg Neutrophils # Seg Neutrophils # Man Lymphocytes # (Manual) PT INR POC ABG pH ABG pH POC ABG pCO2 POC ABG pO2 ABG HCO3 ABG O2 Saturation ABG Base Excess ABG Hemoglobin Oxyhemoglobin Sodium Potassium Chloride Carbon Dioxide 11 L 11 L BUN 93 H 97 H Creatinine 6.4 H 6.4 H Glucose 215 H 219 H Lactic Acid 8.00 H* Calcium 6.0 L 6.3 L AST 224 H ALT 131 H Total Creatine Kinase 8167 H Troponin T Total Protein 5.2 L Albumin 2.3 L Triglycerides LDL Cholesterol Direct HDL Cholesterol Urine WBC (Auto) U Epithel Cells (Auto) Urine Creatinine Salicylates Acetaminophen Hepatitis C Antibody 02/10/19 02/10/19 02/10/19 04:25 04:52 07:15 WBC 11.6 H RBC 3.33 L Hgb 8.4 L Hct 27.0 L MCH 25 L RDW 20.9 H Lymph % (Auto) [place] # Seg Neutrophils % Seg Neuts % (Manual) 89.0 H Lymphocytes % (Manual) 6.0 L Nucleated RBC % 1.0 H Seg Neutrophils # Seg Neutrophils # Man 10.3 H Lymphocytes # (Manual) 0.7 L PT INR POC ABG pH 7.287 L ABG pH POC ABG pCO2 24.3 L POC ABG pO2 ABG HCO3 ABG O2 Saturation ABG Base Excess ABG Hemoglobin Oxyhemoglobin Sodium Potassium Chloride Carbon Dioxide BUN Creatinine Glucose Lactic Acid 8.10 H* Calcium AST ALT Total Creatine Kinase Troponin T Total Protein Albumin Triglycerides LDL Cholesterol Direct HDL Cholesterol Urine WBC (Auto) U Epithel Cells (Auto) Urine Creatinine Salicylates Acetaminophen Hepatitis C Antibody 02/10/19 02/10/19 07:52 09:40 WBC RBC Hgb Hct MCH RDW Lymph % (Auto) [place] # Seg Neutrophils % Seg Neuts % (Manual) Lymphocytes % (Manual) Nucleated RBC % Seg Neutrophils # Seg Neutrophils # Man Lymphocytes # (Manual) PT INR POC ABG pH ABG pH POC ABG pCO2 POC ABG pO2 ABG HCO3 ABG O2 Saturation ABG Base Excess ABG Hemoglobin Oxyhemoglobin Sodium Potassium Chloride Carbon Dioxide BUN Creatinine Glucose Lactic Acid 7.40 H* 8.00 H* Calcium AST ALT Total Creatine Kinase Troponin T Total Protein Albumin Triglycerides LDL Cholesterol Direct HDL Cholesterol Urine WBC (Auto) U Epithel Cells (Auto) Urine Creatinine Salicylates Acetaminophen Hepatitis C Antibody
--- NOTE | 2019-02-10 11:53 | Progress Note ---
Assessment and Plan Cultures: 02/08/2019 blood culture: 1 out of 4 bottles positive for GPC in clusters 02/08/2019 tracheal aspirate: In process A/P: 63-year-old female who is a care home resident with CVA, diabetes mellitus, hypertension, dementia was brought into the emergency room on 02/08/2019 with a ltered mental status and respiratory distress. In the emergency room, the patient had a cardiac arrest requiring ACLS protocol. Now with: #Septic shock, status post cardiac arrest: multiple pressors, leucocytosis. Abdo firm and slightly distended. UA with significant pyuria. #GPC bacteremia: unclear source. Follow culture results. #Possible urinary tract infection: UA showed pyuria. Follow up culture. #Acute renal failure, severe rhabdomyolysis: renally dose abx. #Elevated transaminases, likely related to rhabdomyolysis: gradual improvement. #Acute respiratory failure: on the vent Recs: continue renally adjusted Cefepime, Vancomycin, Flagyl CT abdomen and pelvis without contrast when stable for transport follow up cultures poor prognosis Enrique Devlin MD, FACP [facility] ([facility] C: [phone] O: [phone] F: [phone] Subjective Date of service: 02/10/19 Interval history: Fever +. Remains critically ill, multiple pressors, vent. Lactate remains elevated. Objective - Exam Narrative Exam: Physical Exam: Constitutional: unresponsive, intubated Head, Ears, Nose: Normocephalic, atraumatic. External ears, nose normal Eyes: Conjunctivae/corneas clear. No icterus. No ptosis. Neck: intubated Oral: intubated Cardiovascular: S1, S2 normal. Respiratory: Good air entry, clear to auscultation bilaterally GI: firm, slightly distended, bowel sounds normal. No peritoneal signs Musculoskeletal: No pedal edema, no cyanosis. Skin: No rash or abscess Hem/Lymphatic: No palpable cervical or supraclavicular nodes. No lymphangitis Psych: no agitation Neurological: unresponsive, intubated, on vent - Constitutional Vitals: Vital Signs Temp Pulse Resp BP Pulse Ox 100.2 F H 103 H 14 102/55 98 02/10/19 08:00 02/10/19 11:00 02/10/19 10:30 02/10/19 11:00 02/10/19 11:00 Temperature -Last 24 Hours Temperature 100.2 F Temperature 102.2 F Temperature 98.1 F Temperature 97.6 F Temperature 98.8 F - Labs CBC & Chem 7: 02/10/19 04:25 02/10/19 04:25 Labs: Abnormal lab results 02/09/19 02/09/19 02/09/19 Range/Units 11:41 15:56 19:18 WBC (4.5-11.0) K/mm3 RBC (3.65-5.03) M/mm3 Hgb (10.1-14.3) gm/dl Hct (30.3-42.9) % MCH (28-32) pg RDW (13.2-15.2) % Seg Neuts % (Manual) (40.0-70.0) % Lymphocytes % (Manual) (13.4-35.0) % Nucleated RBC % (0.0-0.9) % Seg Neutrophils # Man (1.8-7.7) K/mm3 Lymphocytes # (Manual) (1.2-5.4) K/mm3 POC ABG pH (7.35-7.45) POC ABG pCO2 (35-45) POC ABG pO2 (80-105) Carbon Dioxide (22-30) mmol/L BUN (7-17) mg/dL Creatinine (0.7-1.2) mg/dL Glucose (65-100) mg/dL Lactic Acid 3.60 H* 7.10 H* 6.10 H* (0.7-2.0) mmol/L Calcium (8.4-10.2) mg/dL AST (5-40) units/L ALT (7-56) units/L Total Creatine Kinase (30-135) units/L Total Protein (6.3-8.2) g/dL Albumin (3.9-5) g/dL Hepatitis C Antibody (NonReactive) 02/09/19 02/09/19 02/09/19 Range/Units 19:18 22:20 23:00 WBC (4.5-11.0) K/mm3 RBC (3.65-5.03) M/mm3 Hgb (10.1-14.3) gm/dl Hct (30.3-42.9) % MCH (28-32) pg RDW (13.2-15.2) % Seg Neuts % (Manual) (40.0-70.0) % Lymphocytes % (Manual) (13.4-35.0) % Nucleated RBC % (0.0-0.9) % Seg Neutrophils # Man (1.8-7.7) K/mm3 Lymphocytes # (Manual) (1.2-5.4) K/mm3 POC ABG pH 7.294 L (7.35-7.45) POC ABG pCO2 24.0 L (35-45) POC ABG pO2 166 H (80-105) Carbon Dioxide 11 L (22-30) mmol/L BUN 93 H (7-17) mg/dL Creatinine 6.4 H (0.7-1.2) mg/dL Glucose 215 H (65-100) mg/dL Lactic Acid (0.7-2.0) mmol/L Calcium 6.0 L (8.4-10.2) mg/dL AST (5-40) units/L ALT (7-56) units/L Total Creatine Kinase (30-135) units/L Total Protein (6.3-8.2) g/dL Albumin (3.9-5) g/dL Hepatitis C Antibody Reactive A (NonReactive) 02/10/19 02/10/19 02/10/19 Range/Units 04:25 04:25 04:25 WBC 11.6 H (4.5-11.0) K/mm3 RBC 3.33 L (3.65-5.03) M/mm3 Hgb 8.4 L (10.1-14.3) gm/dl Hct 27.0 L (30.3-42.9) % MCH 25 L (28-32) pg RDW 20.9 H (13.2-15.2) % Seg Neuts % (Manual) 89.0 H (40.0-70.0) % Lymphocytes % (Manual) 6.0 L (13.4-35.0) % Nucleated RBC % 1.0 H (0.0-0.9) % Seg Neutrophils # Man 10.3 H (1.8-7.7) K/mm3 Lymphocytes # (Manual) 0.7 L (1.2-5.4) K/mm3 POC ABG pH (7.35-7.45) POC ABG pCO2 (35-45) POC ABG pO2 (80-105) Carbon Dioxide 11 L (22-30) mmol/L BUN 97 H (7-17) mg/dL Creatinine 6.4 H (0.7-1.2) mg/dL Glucose 219 H (65-100) mg/dL Lactic Acid 8.00 H* (0.7-2.0) mmol/L Calcium 6.3 L (8.4-10.2) mg/dL AST 224 H (5-40) units/L ALT 131 H (7-56) units/L Total Creatine Kinase 8167 H (30-135) units/L Total Protein 5.2 L (6.3-8.2) g/dL Albumin 2.3 L (3.9-5) g/dL Hepatitis C Antibody (NonReactive) 02/10/19 02/10/19 02/10/19 Range/Units 04:52 07:15 07:52 WBC (4.5-11.0) K/mm3 RBC (3.65-5.03) M/mm3 Hgb (10.1-14.3) gm/dl Hct (30.3-42.9) % MCH (28-32) pg RDW (13.2-15.2) % Seg Neuts % (Manual) (40.0-70.0) % Lymphocytes % (Manual) (13.4-35.0) % Nucleated RBC % (0.0-0.9) % Seg Neutrophils # Man (1.8-7.7) K/mm3 Lymphocytes # (Manual) (1.2-5.4) K/mm3 POC ABG pH 7.287 L (7.35-7.45) POC ABG pCO2 24.3 L (35-45) POC ABG pO2 (80-105) Carbon Dioxide (22-30) mmol/L BUN (7-17) mg/dL Creatinine (0.7-1.2) mg/dL Glucose (65-100) mg/dL Lactic Acid 8.10 H* 7.40 H* (0.7-2.0) mmol/L Calcium (8.4-10.2) mg/dL AST (5-40) units/L ALT (7-56) units/L Total Creatine Kinase (30-135) units/L Total Protein (6.3-8.2) g/dL Albumin (3.9-5) g/dL Hepatitis C Antibody (NonReactive) 02/10/19 02/10/19 Range/Units 09:40 11:00 WBC (4.5-11.0) K/mm3 RBC (3.65-5.03) M/mm3 Hgb (10.1-14.3) gm/dl Hct (30.3-42.9) % MCH (28-32) pg RDW (13.2-15.2) % Seg Neuts % (Manual) (40.0-70.0) % Lymphocytes % (Manual) (13.4-35.0) % Nucleated RBC % (0.0-0.9) % Seg Neutrophils # Man (1.8-7.7) K/mm3 Lymphocytes # (Manual) (1.2-5.4) K/mm3 POC ABG pH (7.35-7.45) POC ABG pCO2 (35-45) POC ABG pO2 (80-105) Carbon Dioxide (22-30) mmol/L BUN (7-17) mg/dL Creatinine (0.7-1.2) mg/dL Glucose (65-100) mg/dL Lactic Acid 8.00 H* 7.80 H* (0.7-2.0) mmol/L Calcium (8.4-10.2) mg/dL AST (5-40) units/L ALT (7-56) units/L Total Creatine Kinase (30-135) units/L Total Protein (6.3-8.2) g/dL Albumin (3.9-5) g/dL Hepatitis C Antibody (NonReactive) - Imaging and cardiology Chest x-ray: report reviewed, image reviewed (no significant change.)
[2019-02-10] MEDS ORDERED: LACTATED RINGERS 1,000 ML IV ONE (13:07)
--- NOTE | 2019-02-10 13:36 | Progress Note ---
Assessment and Plan / s/p Cardiac arrest Pt treated ACLS protocol with return of perfusing cardiac rhythm. admitted to ICU ordered for echo, cardiology consulted /Acute hypoxic Respiratory failure Pt intubated, sedated, and placed on vent support, cont serial ABG, daily CXR, wean vent as tolerated, daily SBT, Sedation holiday, pulmonary team following / Sepsis with severe shock likely from UTI and asp PNA cont Sepsis protocol: Iv antibiotic therapy, IVF resuscitation therapy, monitor uop q shift, cont IV pressor support to maintain MAP greater than 60, serial lactic acid / XUAN (acute kidney injury), likely ATN IVF resuscitation therapy, monitor uop q shift, BMP in the am,Nephrology consulted in ED, renal ultrasound /Acute metabolic Encephalopathy with possible anoxic brain injury CT head pending, cont neuro check, supportive care, IVF resuscitation therapy, / Metabolic acidosis - worsening IV bicarbonate therapy, serial lactic acid / UTI (urinary tract infection) cont IV antibiotic therapy, follow urine cx, /Elevated transaminases, - likely related to rhabdomyolysis and underlying hep C, monitor LFT /Rhabdomyolysis, likely from cardiac arrest, cont iv fluid / DVT prophylaxis SCD to BLE while in bed, prophylactic heparin The high probability of a clinically significant, sudden or life threatening deterioration of the [Neuro, respiratory, renal] system(s) required my full and direct attention, intervention and personal management. The aggregate critical care time was [35] minutes. This time is in addition to time spent performing reported procedures but includes the following: [x] Data Review and interpretation [x] Patient assessment and monitoring of vital signs [x] Documentation [x] Medication orders and management Subjective Date of service: 02/10/19 Interval history: patient seen and examined remained intubated, and sedated on multiple pressors no family at bedside discussed with RN Objective - Exam Narrative Exam: Constitutional: unresponsive, intubated Head, Ears, Nose: Normocephalic, atraumatic. External ears, nose normal Eyes: Conjunctivae/corneas clear. No icterus. No ptosis. Neck: intubated Oral: intubated, dry lips and tongue Cardiovascular: S1, S2 normal. Respiratory: Good air entry, coarse BS auscultation bilaterally GI: firm, slightly distended, bowel sounds normal. No peritoneal signs Musculoskeletal: No pedal edema, no cyanosis. Skin: No rash or abscess Psych: no agitation Neurological: unresponsive, intubated, on vent - Constitutional Vitals: Vital Signs - 12hr 02/10/19 02/10/19 02/10/19 01:45 02:00 02:15 Temperature Pulse Rate 100 H 99 H 99 H Respiratory 15 25 H 18 Rate Blood Pressure 98/62 115/52 110/63 O2 Sat by Pulse 95 Oximetry 02/10/19 02/10/19 02/10/19 02:30 02:45 03:01 Temperature Pulse Rate 99 H 103 H 103 H Respiratory 19 14 16 Rate Blood Pressure 121/67 123/71 111/58 O2 Sat by Pulse 63 L Oximetry 02/10/19 02/10/19 02/10/19 03:06 03:15 03:26 Temperature 102.2 F H Pulse Rate 103 H 102 H Respiratory 12 Rate Blood Pressure 111/58 103/67 O2 Sat by Pulse Oximetry 02/10/19 02/10/19 02/10/19 03:30 03:45 04:00 Temperature Pulse Rate 102 H 101 H 101 H Respiratory 16 20 12 Rate Blood Pressure 120/71 118/74 118/71 O2 Sat by Pulse 100 Oximetry 02/10/19 02/10/19 02/10/19 04:15 04:30 04:45 Temperature Pulse Rate 101 H 98 H 101 H Respiratory 13 15 14 Rate Blood Pressure 120/76 99/50 116/68 O2 Sat by Pulse 100 68 L 100 Oximetry 02/10/19 02/10/19 02/10/19 05:00 05:15 05:30 Temperature Pulse Rate 100 H 100 H 100 H Respiratory 17 13 14 Rate Blood Pressure 122/73 133/79 133/77 O2 Sat by Pulse 99 100 Oximetry 02/10/19 02/10/19 02/10/19 05:45 06:00 06:15 Temperature Pulse Rate 100 H 100 H 102 H Respiratory 19 17 20 Rate Blood Pressure 141/77 134/76 134/76 O2 Sat by Pulse 100 100 99 Oximetry 02/10/19 02/10/19 02/10/19 06:30 06:45 07:00 Temperature Pulse Rate 101 H 102 H 102 H Respiratory 16 22 20 Rate Blood Pressure 107/61 100/61 103/59 O2 Sat by Pulse 93 100 Oximetry 02/10/19 02/10/19 02/10/19 07:15 07:30 07:45 Temperature Pulse Rate 102 H 103 H 102 H Respiratory 16 12 12 Rate Blood Pressure 94/49 101/58 113/66 O2 Sat by Pulse Oximetry 02/10/19 02/10/19 02/10/19 08:00 08:15 08:30 Temperature 100.2 F H Pulse Rate 103 H 102 H 102 H Respiratory 13 16 24 Rate Blood Pressure 99/63 98/58 104/59 O2 Sat by Pulse Oximetry 02/10/19 02/10/19 02/10/19 08:45 09:00 09:15 Temperature Pulse Rate 102 H 102 H 102 H Respiratory 17 14 17 Rate Blood Pressure 109/61 95/52 109/59 O2 Sat by Pulse Oximetry 02/10/19 02/10/19 02/10/19 09:30 09:45 10:00 Temperature Pulse Rate 102 H 101 H 101 H Respiratory 19 16 13 Rate Blood Pressure 94/54 95/50 101/54 O2 Sat by Pulse 98 Oximetry 02/10/19 02/10/19 02/10/19 10:15 10:30 11:00 Temperature Pulse Rate 102 H 102 H 103 H Respiratory 18 14 Rate Blood Pressure 95/55 99/56 102/55 O2 Sat by Pulse 56 L 97 98 Oximetry - Labs CBC & Chem 7: 02/11/19 06:00 02/11/19 06:00 Labs: Abnormal lab results 02/09/19 02/09/19 02/09/19 Range/Units 15:56 19:18 19:18 WBC (4.5-11.0) K/mm3 RBC (3.65-5.03) M/mm3 Hgb (10.1-14.3) gm/dl Hct (30.3-42.9) % MCH (28-32) pg RDW (13.2-15.2) % Seg Neuts % (Manual) (40.0-70.0) % Lymphocytes % (Manual) (13.4-35.0) % Nucleated RBC % (0.0-0.9) % Seg Neutrophils # Man (1.8-7.7) K/mm3 Lymphocytes # (Manual) (1.2-5.4) K/mm3 POC ABG pH (7.35-7.45) POC ABG pCO2 (35-45) POC ABG pO2 (80-105) Carbon Dioxide (22-30) mmol/L BUN (7-17) mg/dL Creatinine (0.7-1.2) mg/dL Glucose (65-100) mg/dL POC Glucose (70-105) Lactic Acid 7.10 H* 6.10 H* (0.7-2.0) mmol/L Calcium (8.4-10.2) mg/dL AST (5-40) units/L ALT (7-56) units/L Total Creatine Kinase (30-135) units/L Total Protein (6.3-8.2) g/dL Albumin (3.9-5) g/dL Hepatitis C Antibody Reactive A (NonReactive) 02/09/19 02/09/19 02/10/19 Range/Units 22:20 23:00 04:25 WBC (4.5-11.0) K/mm3 RBC (3.65-5.03) M/mm3 Hgb (10.1-14.3) gm/dl Hct (30.3-42.9) % MCH (28-32) pg RDW (13.2-15.2) % Seg Neuts % (Manual) (40.0-70.0) % Lymphocytes % (Manual) (13.4-35.0) % Nucleated RBC % (0.0-0.9) % Seg Neutrophils # Man (1.8-7.7) K/mm3 Lymphocytes # (Manual) (1.2-5.4) K/mm3 POC ABG pH 7.294 L (7.35-7.45) POC ABG pCO2 24.0 L (35-45) POC ABG pO2 166 H (80-105) Carbon Dioxide 11 L 11 L (22-30) mmol/L BUN 93 H 97 H (7-17) mg/dL Creatinine 6.4 H 6.4 H (0.7-1.2) mg/dL Glucose 215 H 219 H (65-100) mg/dL POC Glucose (70-105) Lactic Acid (0.7-2.0) mmol/L Calcium 6.0 L 6.3 L (8.4-10.2) mg/dL AST 224 H (5-40) units/L ALT 131 H (7-56) units/L Total Creatine Kinase 8167 H (30-135) units/L Total Protein 5.2 L (6.3-8.2) g/dL Albumin 2.3 L (3.9-5) g/dL Hepatitis C Antibody (NonReactive) 02/10/19 02/10/19 02/10/19 Range/Units 04:25 04:25 04:52 WBC 11.6 H (4.5-11.0) K/mm3 RBC 3.33 L (3.65-5.03) M/mm3 Hgb 8.4 L (10.1-14.3) gm/dl Hct 27.0 L (30.3-42.9) % MCH 25 L (28-32) pg RDW 20.9 H (13.2-15.2) % Seg Neuts % (Manual) 89.0 H (40.0-70.0) % Lymphocytes % (Manual) 6.0 L (13.4-35.0) % Nucleated RBC % 1.0 H (0.0-0.9) % Seg Neutrophils # Man 10.3 H (1.8-7.7) K/mm3 Lymphocytes # (Manual) 0.7 L (1.2-5.4) K/mm3 POC ABG pH 7.287 L (7.35-7.45) POC ABG pCO2 24.3 L (35-45) POC ABG pO2 (80-105) Carbon Dioxide (22-30) mmol/L BUN (7-17) mg/dL Creatinine (0.7-1.2) mg/dL Glucose (65-100) mg/dL POC Glucose (70-105) Lactic Acid 8.00 H* (0.7-2.0) mmol/L Calcium (8.4-10.2) mg/dL AST (5-40) units/L ALT (7-56) units/L Total Creatine Kinase (30-135) units/L Total Protein (6.3-8.2) g/dL Albumin (3.9-5) g/dL Hepatitis C Antibody (NonReactive) 02/10/19 02/10/19 02/10/19 Range/Units 07:15 07:52 09:40 WBC (4.5-11.0) K/mm3 RBC (3.65-5.03) M/mm3 Hgb (10.1-14.3) gm/dl Hct (30.3-42.9) % MCH (28-32) pg RDW (13.2-15.2) % Seg Neuts % (Manual) (40.0-70.0) % Lymphocytes % (Manual) (13.4-35.0) % Nucleated RBC % (0.0-0.9) % Seg Neutrophils # Man (1.8-7.7) K/mm3 Lymphocytes # (Manual) (1.2-5.4) K/mm3 POC ABG pH (7.35-7.45) POC ABG pCO2 (35-45) POC ABG pO2 (80-105) Carbon Dioxide (22-30) mmol/L BUN (7-17) mg/dL Creatinine (0.7-1.2) mg/dL Glucose (65-100) mg/dL POC Glucose (70-105) Lactic Acid 8.10 H* 7.40 H* 8.00 H* (0.7-2.0) mmol/L Calcium (8.4-10.2) mg/dL AST (5-40) units/L ALT (7-56) units/L Total Creatine Kinase (30-135) units/L Total Protein (6.3-8.2) g/dL Albumin (3.9-5) g/dL Hepatitis C Antibody (NonReactive) 02/10/19 02/10/19 Range/Units 11:00 12:56 WBC (4.5-11.0) K/mm3 RBC (3.65-5.03) M/mm3 Hgb (10.1-14.3) gm/dl Hct (30.3-42.9) % MCH (28-32) pg RDW (13.2-15.2) % Seg Neuts % (Manual) (40.0-70.0) % Lymphocytes % (Manual) (13.4-35.0) % Nucleated RBC % (0.0-0.9) % Seg Neutrophils # Man (1.8-7.7) K/mm3 Lymphocytes # (Manual) (1.2-5.4) K/mm3 POC ABG pH (7.35-7.45) POC ABG pCO2 (35-45) POC ABG pO2 (80-105) Carbon Dioxide (22-30) mmol/L BUN (7-17) mg/dL Creatinine (0.7-1.2) mg/dL Glucose (65-100) mg/dL POC Glucose 149 H (70-105) Lactic Acid 7.80 H* (0.7-2.0) mmol/L Calcium (8.4-10.2) mg/dL AST (5-40) units/L ALT (7-56) units/L Total Creatine Kinase (30-135) units/L Total Protein (6.3-8.2) g/dL Albumin (3.9-5) g/dL Hepatitis C Antibody (NonReactive)
--- NOTE | 2019-02-10 14:19 | Progress Note ---
Assessment and Plan 1. Acute kidney injury: Vasomotor XUAN in the setting of septic shock and Rhabdomyolysis. Renal US negative for hydronephrosis. Baseline renal function is unknown. Continue IV fluids. Monitor renal function. Renal prognosis is guarded. Avoid nephrotoxic agents. Meds dosage based on GFR. There is more risks than benefits in doing Hemodialysis at this point. 2. FEN: Hyperkalemia, improved. Metabolic acidosis, continue bicarbonate drip. Monitor lytes. 3. Septic shock: Currently pt is on Dobutamine, Vasopressin and Levophed. Monitor BP. 4. Respiratory failure: On vent. 5. S/p Cardiac arrest. 6. Anemia: POA. Examination: General appearance: well-developed, appears stated age, intuabted, on vent HEENT: ATNC, LENA Neck: neck supple, trachea midline Respiratory: Clear to Ascultation Heart: regular, S1S2, no murmur Gastrointestinal: soft, normoactive bowel sounds, not tenderness Integumentary: no rash, warm and dry : Palmer catheter Neurologic: not responding Ext: dependent edema noted Subjective Date of service: 02/10/19 Interval history: Patient was seen and examined at the bedside. Objective - Vital Signs Vital signs: Vital Signs - 12hr 02/10/19 02/10/19 02/10/19 02:30 02:45 03:01 Temperature Pulse Rate 99 H 103 H 103 H Respiratory 19 14 16 Rate Blood Pressure 121/67 123/71 111/58 O2 Sat by Pulse 63 L Oximetry 02/10/19 02/10/19 02/10/19 03:06 03:15 03:26 Temperature 102.2 F H Pulse Rate 103 H 102 H Respiratory 12 Rate Blood Pressure 111/58 103/67 O2 Sat by Pulse Oximetry 02/10/19 02/10/19 02/10/19 03:30 03:45 04:00 Temperature Pulse Rate 102 H 101 H 101 H Respiratory 16 20 12 Rate Blood Pressure 120/71 118/74 118/71 O2 Sat by Pulse 100 Oximetry 02/10/19 02/10/19 02/10/19 04:15 04:30 04:45 Temperature Pulse Rate 101 H 98 H 101 H Respiratory 13 15 14 Rate Blood Pressure 120/76 99/50 116/68 O2 Sat by Pulse 100 68 L 100 Oximetry 02/10/19 02/10/19 02/10/19 05:00 05:15 05:30 Temperature Pulse Rate 100 H 100 H 100 H Respiratory 17 13 14 Rate Blood Pressure 122/73 133/79 133/77 O2 Sat by Pulse 99 100 Oximetry 02/10/19 02/10/19 02/10/19 05:45 06:00 06:15 Temperature Pulse Rate 100 H 100 H 102 H Respiratory 19 17 20 Rate Blood Pressure 141/77 134/76 134/76 O2 Sat by Pulse 100 100 99 Oximetry 02/10/19 02/10/19 02/10/19 06:30 06:45 07:00 Temperature Pulse Rate 101 H 102 H 102 H Respiratory 16 22 20 Rate Blood Pressure 107/61 100/61 103/59 O2 Sat by Pulse 93 100 Oximetry 02/10/19 02/10/19 02/10/19 07:15 07:30 07:45 Temperature Pulse Rate 102 H 103 H 102 H Respiratory 16 12 12 Rate Blood Pressure 94/49 101/58 113/66 O2 Sat by Pulse Oximetry 02/10/19 02/10/19 02/10/19 08:00 08:15 08:30 Temperature 100.2 F H Pulse Rate 103 H 102 H 102 H Respiratory 13 16 24 Rate Blood Pressure 99/63 98/58 104/59 O2 Sat by Pulse Oximetry 02/10/19 02/10/19 02/10/19 08:45 09:00 09:15 Temperature Pulse Rate 102 H 102 H 102 H Respiratory 17 14 17 Rate Blood Pressure 109/61 95/52 109/59 O2 Sat by Pulse Oximetry 02/10/19 02/10/19 02/10/19 09:30 09:45 10:00 Temperature Pulse Rate 102 H 101 H 101 H Respiratory 19 16 13 Rate Blood Pressure 94/54 95/50 101/54 O2 Sat by Pulse 98 Oximetry 02/10/19 02/10/19 02/10/19 10:15 10:30 11:00 Temperature Pulse Rate 102 H 102 H 103 H Respiratory 18 14 Rate Blood Pressure 95/55 99/56 102/55 O2 Sat by Pulse 56 L 97 98 Oximetry 02/10/19 12:00 Temperature 101.9 F H Pulse Rate Respiratory Rate Blood Pressure O2 Sat by Pulse Oximetry - Lab 02/10/19 04:25 02/10/19 04:25 Most recent lab results ABG pH 7.106 pH Units (7.350-7.450) L* 02/09/19 00:40 ABG pCO2 35.0 mm Hg 02/09/19 00:40 ABG pO2 89.4 mm Hg (80.0-90.0) 02/09/19 00:40 ABG HCO3 10.8 mmol/L (20.0-26.0) L 02/09/19 00:40 ABG O2 Saturation 94.6 % (95.0-99.0) L 02/09/19 00:40 Calcium 6.3 mg/dL (8.4-10.2) L 02/10/19 04:25 Magnesium 2.30 mg/dL (1.7-2.3) 02/08/19 13:15 Urine Creatinine 34.3 mg/dL (0.1-20.0) H 02/09/19 02:39 Urine Sodium 119 mmol/L 02/09/19 02:39 Medications & Allergies - Medications Allergies/Adverse Reactions: Allergies famotidine [From Pepcid] Allergy (Verified 02/08/19 17:02) Unknown Pork/Porcine Containing Products Allergy (Verified 02/08/19 17:02) Unknown shellfish derived Allergy (Verified 02/08/19 13:47) Unknown spinach Allergy (Verified 02/08/19 17:02) Unknown strawberry Allergy (Verified 02/08/19 17:02) Unknown Home Medications: Home Medications Medication Instructions Recorded Confirmed Last Taken Type Acetaminophen [Mapap] 650 mg PO Q6H PRN 02/08/19 02/08/19 Unknown History Albuterol Sulfate [Proventil Hfa] 6.7 gm IH Q6H PRN 02/08/19 02/08/19 Unknown History Aspirin [Aspirin BABY CHEW TAB] 81 mg PO QDAY 02/08/19 02/08/19 Unknown History AtorvaSTATin [Lipitor] 10 mg PO QHS 02/08/19 02/08/19 Unknown History Calcium Carbonate [Calcium 600MG 600 mg PO DAILY 02/08/19 02/08/19 Unknown History TAB] Cyclobenzaprine [Flexeril] 10 mg PO BID PRN 02/08/19 02/08/[address] [DepaKOTE DR] 125 mg PO DAILY 02/08/19 02/08/19 Unknown History Divalproex ER [DepaKOTE ER] 500 mg PO QHS 02/08/19 02/08/19 Unknown History Donepezil HCl [Donepezil HCl Odt] 10 mg PO QHS 02/08/19 02/08/19 Unknown History Gabapentin [Neurontin] 300 mg PO DAILY 02/08/19 02/08/19 Unknown History Ibuprofen [Motrin] 800 mg PO Q8HR PRN 02/08/19 02/08/19 Unknown History Latanoprost 0.005% [Xalatan 0.005%] 1 drop OP QHS 02/08/19 02/08/19 Unknown History Lisinopril [Zestril TAB] 40 mg PO QDAY 02/08/19 02/08/19 Unknown History Memantine [Namenda] 10 mg PO BID 02/08/19 02/08/19 Unknown History Pantoprazole Sodium [Protonix] 40 mg PO DAILY 02/08/19 02/08/19 Unknown History Sennosides [Senna] 8.6 mg PO Q6H PRN 02/08/19 02/08/19 Unknown History Sertraline [Zoloft] 125 mg PO QDAY 02/08/19 02/08/19 Unknown History Tiotropium [place] [Spiriva] 18 mcg IH DAILY 02/08/19 02/08/19 Unknown History hydroCHLOROthiazide [HCTZ] 25 mg PO QDAY 02/08/19 02/08/19 Unknown History labetaloL [Labetalol 200mg TAB] 400 mg PO Q8H 02/08/19 02/08/19 Unknown History metFORMIN [Glucophage] 500 mg PO BID 02/08/19 02/08/19 Unknown History Active Medications: Generic Name Dose Route Start Last Admin Trade Name Freq PRN Reason Stop Dose Admin Acetaminophen 650 mg 02/10/19 03:28 02/10/19 04:13 Tylenol PO 650 mg Q4H PRN Administration Fever >101 Fentanyl 50 mcg 02/09/19 11:36 Sublimaze IV Q10MIN PRN ANALGESIA Heparin Sodium (Porcine) 5,000 unit 02/08/19 22:00 02/10/19 09:07 Heparin SUB-Q 5,000 unit Q12HR YANNA Administration Hydrophilic Ointment 1 applic 02/09/19 11:36 Vaseline Lip Therapy TP Q2HR PRN Dry Lips Norepinephrine 4 mg in 250 mls @ 7.5 mls/hr 02/08/19 14:00 02/10/19 12:48 Levophed Drip 4 Mg/Ns 250 Ml IV 16 mcg/min TITR YANNA 60 mls/hr Administration Protocol 2 MCG/MIN Dopamine HCl/Dextrose 800 mg in 250 mls @ 3.274 mls/hr 02/08/19 15:15 02/09/19 12:59 Intropin Drip 800 Mg/D5w 250 Ml IV 02/11/19 19:36 2 mcg/kg/min TITR ONE 3.274 mls/hr Titration Protocol 2 MCG/KG/MIN Dobutamine HCl/Dextrose 500 mg in 250 mls @ 5.239 mls/hr 02/08/19 20:00 02/10/19 07:30 Dobutrex Drip 500mg/D5w 250ml IV 6 mcg/kg/min TITR YANNA 15.717 mls/hr Titration Protocol 2 MCG/KG/MIN Levofloxacin/Dextrose 500 mg in 100 mls @ 100 mls/hr 02/11/19 10:00 Levaquin 500mg/100ml IV Q48H YANNA Protocol Fentanyl Citrate 2,000 mcg in 100 mls @ 4.366 mls/hr 02/09/19 12:00 02/09/19 21:12 Fentanyl Drip Premix IV 1 mcg/kg/hr TITR YANNA 4.366 mls/hr Administration Protocol 1 MCG/KG/HR Midazolam HCl 100 mg/ Sodium 100 mls @ 2 mls/hr 02/09/19 12:00 Chloride IV TITR YANNA Protocol 2 MG/HR Cefepime HCl 1 gm in 100 mls @ 200 mls/hr 02/09/19 13:00 02/10/19 09:06 Cefepime/Ns 1 Gm/100 Ml IV 200 mls/hr Q24HR YANNA Administration Protocol Vasopressin 20 unit/ Sodium 101 mls @ 9.09 mls/hr 02/09/19 13:00 02/10/19 09:01 Chloride IV 0.03 units/min TITR YANNA 9.09 mls/hr Titration Protocol 0.03 UNITS/MIN Sodium Bicarbonate 150 meq/ 1,150 mls @ 150 mls/hr 02/09/19 13:00 02/10/19 08:01 Dextrose IV 150 mls/hr DIRECT YANNA Administration Midazolam HCl 2 mg 02/09/19 11:36 Versed IV Q10MIN PRN Sedation Multi-Ingred Cream/Lotion/Oil/Oint 1 applic 02/09/19 11:36 Artificial Tears Ophth Oint OU Q4HR PRN Dry Eye(s) Pantoprazole Sodium 40 mg 02/09/19 14:00 02/10/19 09:02 Protonix IV 40 mg QDAY YANNA Administration Sodium Chloride 10 ml 02/08/19 22:00 02/10/19 09:03 Sodium Chloride Flush Syringe 10 Ml IV 10 ml BID YANNA Administration Sodium Chloride 10 ml 02/08/19 15:44 Sodium Chloride Flush Syringe 10 Ml IV PRN PRN LINE FLUSH
[2019-02-11] MEDS ORDERED: SODIUM CHLORIDE 0.9% 500 ML 500 ML IV ONE ×2 (00:06→13:17)
[2019-02-11] MEDS ORDERED: DEXTROSE 50% IN WATER (25GM) 50 ML SYRINGE IV ONE ×2 (00:41→06:17)
[2019-02-11] MEDS: FREE WATER PO SCH ×5 (02:00→18:00)
[2019-02-11] MEDS: NORepinephrine/NS 4 MG-250 ML 4 MG/250 ML BAG IV SCH ×5 (02:09→21:15)
[2019-02-11] MEDS: SODIUM BICARBONATE 150 MEQ in DEXTROSE 5% IN WATER 1,000 ML IV SCH ×3 (02:10→18:46)
[2019-02-11] MEDS ORDERED: LORazepam 2 MG/ML VIAL IV ONE (02:45)
--- NOTE | 2019-02-11 03:19 | XRay Report ---
CHEST 1 VIEW INDICATION / CLINICAL INFORMATION: follow up respiratory failure. COMPARISON: 02/10/2019 FINDINGS: SUPPORT DEVICES: Endotracheal tube remains in place as well as NG tube. HEART / MEDIASTINUM: No significant abnormality. LUNGS / PLEURA: Basilar lung consolidation is unchanged. Upper clear. There may be small effusions. N o pneumothorax. ADDITIONAL FINDINGS: No significant additional findings. IMPRESSION: 1. No significant change Signer Name: Willis Rose MD Signed: 02/11/2019 3:15 AM Workstation Name: [id number]
[2019-02-11 06:42] LABS: Hematocrit 22.8 % (30.3-42.9); Hemoglobin 7.2 gm/dl (10.1-14.3); Mean Corpuscular HGB Conc 32 % (30-34); Mean Corpuscular Volume 80 fl (79-97); Platelet Count 136 K/mm3 (140-440); Red Blood Count 2.86 M/mm3 (3.65-5.03)
[2019-02-11 06:44] LABS: Red Cell Distribution Width 20.2 % (13.2-15.2)
[2019-02-11 06:52] LABS: Calcium 5.4 mg/dL (8.4-10.2)
[2019-02-11] MEDS: DOBUTamine/D5W 500 MG/250 ML 500 MG/250 ML BAG IV SCH (08:46)
[2019-02-11] MEDS: VASOPRESSIN 20 UNIT in SODIUM CHLORIDE 0.9% 100 ML IV SCH ×2 (08:47→20:30)
[2019-02-11] MEDS: PANTOPRAZOLE 40 MG INJ IV SCH (09:03)
[2019-02-11] MEDS: HEPARIN 5,000 UNIT/1 ML VIAL SUB-Q SCH ×2 (09:04→21:21)
--- NOTE | 2019-02-11 09:32 | Progress Note ---
Subjective Date of service: 02/11/19 Interval history: spoke with the nurse and patient examined at length all chart reviewed AND WENT OVER THE PRIOR IMAGING STUDIES agree with the current plan of care for the patient will follow up and check EEG Objective - Vital Sign Vital Signs - 12hr 02/10/19 02/10/19 02/10/19 21:45 22:00 22:15 Temperature Pulse Rate 107 H 107 H 107 H Respiratory 22 17 17 Rate Blood Pressure 114/54 105/57 111/59 O2 Sat by Pulse 79 L 80 L Oximetry 02/10/19 02/10/19 02/10/19 22:30 22:45 23:00 Temperature Pulse Rate 114 H 114 H 110 H Respiratory 21 30 H 30 H Rate Blood Pressure 111/59 107/59 112/56 O2 Sat by Pulse Oximetry 02/10/19 02/10/19 02/10/19 23:10 23:15 23:21 Temperature Pulse Rate 109 H 107 H 109 H Respiratory 30 H 30 H Rate Blood Pressure 112/56 99/57 112/56 O2 Sat by Pulse 93 Oximetry 02/10/19 02/10/19 02/11/19 23:30 23:46 00:00 Temperature 101.9 F H Pulse Rate 107 H 136 H 116 H Respiratory 30 H 24 17 Rate Blood Pressure 110/56 110/56 90/57 O2 Sat by Pulse 98 85 97 Oximetry 02/11/19 02/11/19 02/11/19 00:15 00:30 00:45 Temperature Pulse Rate 110 H 108 H 107 H Respiratory 29 H 30 H 30 H Rate Blood Pressure 98/59 111/57 115/63 O2 Sat by Pulse 98 98 Oximetry 02/11/19 02/11/19 02/11/19 01:00 01:15 01:30 Temperature Pulse Rate 106 H 106 H 109 H Respiratory 30 H 30 H 17 Rate Blood Pressure 128/66 131/67 131/67 O2 Sat by Pulse 99 100 93 Oximetry 02/11/19 02/11/19 02/11/19 01:46 02:00 02:15 Temperature Pulse Rate 112 H 107 H 104 H Respiratory 31 H 30 H 30 H Rate Blood Pressure 111/57 103/53 104/54 O2 Sat by Pulse 90 99 Oximetry 02/11/19 02/11/19 02/11/19 02:30 02:45 03:00 Temperature Pulse Rate 109 H 109 H 106 H Respiratory 24 30 H 30 H Rate Blood Pressure 99/54 102/57 102/53 O2 Sat by Pulse Oximetry 02/11/19 02/11/19 02/11/19 03:15 03:30 03:35 Temperature Pulse Rate 106 H 105 H 105 H Respiratory 30 H 30 H Rate Blood Pressure 107/60 117/64 117/64 O2 Sat by Pulse 99 98 97 Oximetry 02/11/19 02/11/19 02/11/19 03:45 03:49 04:00 Temperature 100.8 F H Pulse Rate 104 H 103 H Respiratory 30 H 30 H Rate Blood Pressure 127/67 135/70 O2 Sat by Pulse 98 100 Oximetry 02/11/19 02/11/19 02/11/19 04:15 04:30 04:45 Temperature Pulse Rate 102 H 103 H 104 H Respiratory 30 H 30 H 30 H Rate Blood Pressure 140/73 131/69 118/69 O2 Sat by Pulse 98 97 97 Oximetry 02/11/19 02/11/19 02/11/19 05:00 05:15 05:30 Temperature Pulse Rate 105 H 104 H 104 H Respiratory 30 H 30 H 30 H Rate Blood Pressure 119/66 124/64 127/67 O2 Sat by Pulse 96 97 97 Oximetry 02/11/19 02/11/19 02/11/19 05:45 06:00 06:15 Temperature Pulse Rate 103 H 105 H 104 H Respiratory 30 H 30 H 30 H Rate Blood Pressure 132/67 114/64 116/66 O2 Sat by Pulse 97 97 98 Oximetry 02/11/19 02/11/19 02/11/19 06:30 06:45 07:00 Temperature Pulse Rate 104 H 105 H 106 H Respiratory 30 H 30 H 30 H Rate Blood Pressure 122/68 104/61 111/63 O2 Sat by Pulse 98 96 97 Oximetry 02/11/19 02/11/19 02/11/19 07:15 07:30 07:45 Temperature Pulse Rate 105 H 105 H 105 H Respiratory 30 H 30 H 30 H Rate Blood Pressure 102/56 90/52 81/57 O2 Sat by Pulse 96 96 97 Oximetry 02/11/19 02/11/19 08:00 09:00 Temperature 99.7 F H 99.7 F H Pulse Rate 105 H Respiratory 30 H Rate Blood Pressure 112/60 O2 Sat by Pulse 98 Oximetry - Laboratory Findings CBC and BMP: 02/11/19 06:00 02/11/19 06:00 Abnormal Lab Findings: Abnormal Labs 02/08/19 02/08/19 02/08/19 13:15 13:15 13:15 WBC 16.5 H RBC Hgb 9.6 L Hct MCH 25 L RDW 20.5 H Plt Count Lymph % (Auto) 10.5 L Lea # 0.9 H Seg Neutrophils % 84.0 H Seg Neuts % (Manual) Lymphocytes % (Manual) Nucleated RBC % Seg Neutrophils # 13.8 H Seg Neutrophils # Man Lymphocytes # (Manual) PT INR POC ABG pH ABG pH POC ABG pCO2 POC ABG pO2 ABG HCO3 ABG O2 Saturation ABG Base Excess ABG Hemoglobin Oxyhemoglobin Sodium Potassium Chloride Carbon Dioxide BUN Creatinine Glucose POC Glucose Lactic Acid 7.30 H* Calcium AST ALT Total Creatine Kinase Troponin T 0.079 H Total Protein Albumin Triglycerides 379 H LDL Cholesterol Direct 16 L HDL Cholesterol 22 L Urine WBC (Auto) U Epithel Cells (Auto) Urine Creatinine Salicylates Acetaminophen Hepatitis C Antibody 02/08/19 02/08/19 02/08/19 13:15 13:15 13:15 WBC RBC Hgb Hct MCH RDW Plt Count Lymph % (Auto) Lea # Seg Neutrophils % Seg Neuts % (Manual) Lymphocytes % (Manual) Nucleated RBC % Seg Neutrophils # Seg Neutrophils # Man Lymphocytes # (Manual) PT 16.0 H INR 1.26 H POC ABG pH ABG pH POC ABG pCO2 POC ABG pO2 ABG HCO3 ABG O2 Saturation ABG Base Excess ABG Hemoglobin Oxyhemoglobin Sodium 150 H Potassium 5.8 H Chloride Carbon Dioxide 16 L BUN 91 H Creatinine 7.6 H Glucose POC Glucose Lactic Acid Calcium AST 157 H ALT 64 H Total Creatine Kinase 9438 H Troponin T Total Protein Albumin Triglycerides LDL Cholesterol Direct HDL Cholesterol Urine WBC (Auto) U Epithel Cells (Auto) Urine Creatinine Salicylates < 0.3 L Acetaminophen Hepatitis C Antibody 02/08/19 02/08/19 02/08/19 13:15 14:45 14:53 WBC RBC Hgb Hct MCH RDW Plt Count Lymph % (Auto) Le[place] # Seg Neutrophils % Seg Neuts % (Manual) Lymphocytes % (Manual) Nucleated RBC % Seg Neutrophils # Seg Neutrophils # Man Lymphocytes # (Manual) PT INR POC ABG pH 7.126 L ABG pH POC ABG pCO2 POC ABG pO2 174 H ABG HCO3 ABG O2 Saturation ABG Base Excess ABG Hemoglobin Oxyhemoglobin Sodium Potassium Chloride Carbon Dioxide BUN Creatinine Glucose POC Glucose Lactic Acid Calcium AST ALT Total Creatine Kinase Troponin T Total Protein Albumin Triglycerides LDL Cholesterol Direct HDL Cholesterol Urine WBC (Auto) > 182.0 H U Epithel Cells (Auto) 14.0 H Urine Creatinine Salicylates Acetaminophen < 5.0 L Hepatitis C Antibody 02/08/19 02/08/19 02/08/19 19:54 20:47 23:25 WBC RBC Hgb Hct MCH RDW Plt Count Lymph % (Auto) [place] # Seg Neutrophils % Seg Neuts % (Manual) Lymphocytes % (Manual) Nucleated RBC % Seg Neutrophils # Seg Neutrophils # Man Lymphocytes # (Manual) PT INR POC ABG pH ABG pH POC ABG pCO2 POC ABG pO2 ABG HCO3 ABG O2 Saturation ABG Base Excess ABG Hemoglobin Oxyhemoglobin Sodium 150 H Potassium 5.9 H Chloride 109.8 H Carbon Dioxide 11 L BUN 86 H Creatinine 6.2 H Glucose POC Glucose Lactic Acid 6.40 H* 5.40 H* Calcium 6.9 L D AST ALT Total Creatine Kinase Troponin T Total Protein Albumin Triglycerides LDL Cholesterol Direct HDL Cholesterol Urine WBC (Auto) U Epithel Cells (Auto) Urine Creatinine Salicylates Acetaminophen Hepatitis C Antibody 02/09/19 02/09/19 02/09/19 00:40 02:39 03:38 WBC 19.9 H RBC 3.37 L Hgb 8.8 L Hct 28.6 L MCH 26 L RDW 21.7 H Plt Count Lymph % (Auto) [place] # Seg Neutrophils % Seg Neuts % (Manual) 82.0 H Lymphocytes % (Manual) 12.0 L Nucleated RBC % 1.0 H Seg Neutrophils # Seg Neutrophils # Man 16.3 H Lymphocytes # (Manual) PT INR POC ABG pH ABG pH 7.106 L* POC ABG pCO2 POC ABG pO2 ABG HCO3 10.8 L ABG O2 Saturation 94.6 L ABG Base Excess -17.7 L ABG Hemoglobin 10.8 L Oxyhemoglobin 92.7 L Sodium Potassium Chloride Carbon Dioxide BUN Creatinine Glucose POC Glucose Lactic Acid Calcium AST ALT Total Creatine Kinase Troponin T Total Protein Albumin Triglycerides LDL Cholesterol Direct HDL Cholesterol Urine WBC (Auto) U Epithel Cells (Auto) Urine Creatinine 34.3 H Salicylates Acetaminophen Hepatitis C Antibody 02/09/19 02/09/19 02/09/19 03:38 03:38 07:02 WBC RBC Hgb Hct MCH RDW Plt Count Lymph % (Auto) [place] # Seg Neutrophils % Seg Neuts % (Manual) Lymphocytes % (Manual) Nucleated RBC % Seg Neutrophils # Seg Neutrophils # Man Lymphocytes # (Manual) PT INR POC ABG pH ABG pH POC ABG pCO2 POC ABG pO2 ABG HCO3 ABG O2 Saturation ABG Base Excess ABG Hemoglobin Oxyhemoglobin Sodium 148 H Potassium 5.1 H Chloride 110.9 H Carbon Dioxide 14 L BUN 87 H Creatinine 6.4 H Glucose 280 H POC Glucose Lactic Acid 5.10 H* 3.30 H* Calcium 6.7 L AST 329 H ALT 167 H Total Creatine Kinase 96443 H Troponin T Total Protein 5.7 L D Albumin 2.7 L Triglycerides LDL Cholesterol Direct HDL Cholesterol Urine WBC (Auto) U Epithel Cells (Auto) Urine Creatinine Salicylates Acetaminophen Hepatitis C Antibody 02/09/19 02/09/19 02/09/19 11:37 11:41 15:56 WBC RBC Hgb Hct MCH RDW Plt Count Lymph % (Auto) [place] # Seg Neutrophils % Seg Neuts % (Manual) Lymphocytes % (Manual) Nucleated RBC % Seg Neutrophils # Seg Neutrophils # Man Lymphocytes # (Manual) PT INR POC ABG pH 7.174 L ABG pH POC ABG pCO2 POC ABG pO2 ABG HCO3 ABG O2 Saturation ABG Base Excess ABG Hemoglobin Oxyhemoglobin Sodium Potassium Chloride Carbon Dioxide BUN Creatinine Glucose POC Glucose Lactic Acid 3.60 H* 7.10 H* Calcium AST ALT Total Creatine Kinase Troponin T Total Protein Albumin Triglycerides LDL Cholesterol Direct HDL Cholesterol Urine WBC (Auto) U Epithel Cells (Auto) Urine Creatinine Salicylates Acetaminophen Hepatitis C Antibody 02/09/19 02/09/19 02/09/19 19:18 19:18 22:20 WBC RBC Hgb Hct MCH RDW Plt Count Lymph % (Auto) [place] # Seg Neutrophils % Seg Neuts % (Manual) Lymphocytes % (Manual) Nucleated RBC % Seg Neutrophils # Seg Neutrophils # Man Lymphocytes # (Manual) PT INR POC ABG pH 7.294 L ABG pH POC ABG pCO2 24.0 L POC ABG pO2 166 H ABG HCO3 ABG O2 Saturation ABG Base Excess ABG Hemoglobin Oxyhemoglobin Sodium Potassium Chloride Carbon Dioxide BUN Creatinine Glucose POC Glucose Lactic Acid 6.10 H* Calcium AST ALT Total Creatine Kinase Troponin T Total Protein Albumin Triglycerides LDL Cholesterol Direct HDL Cholesterol Urine WBC (Auto) U Epithel Cells (Auto) Urine Creatinine Salicylates Acetaminophen Hepatitis C Antibody Reactive A 02/09/19 02/10/19 02/10/19 23:00 04:25 04:25 WBC RBC Hgb Hct MCH RDW Plt Count Lymph % (Auto) [place] # Seg Neutrophils % Seg Neuts % (Manual) Lymphocytes % (Manual) Nucleated RBC % Seg Neutrophils # Seg Neutrophils # Man Lymphocytes # (Manual) PT INR POC ABG pH ABG pH POC ABG pCO2 POC ABG pO2 ABG HCO3 ABG O2 Saturation ABG Base Excess ABG Hemoglobin Oxyhemoglobin Sodium Potassium Chloride Carbon Dioxide 11 L 11 L BUN 93 H 97 H Creatinine 6.4 H 6.4 H Glucose 215 H 219 H POC Glucose Lactic Acid 8.00 H* Calcium 6.0 L 6.3 L AST 224 H ALT 131 H Total Creatine Kinase 8167 H Troponin T Total Protein 5.2 L Albumin 2.3 L Triglycerides LDL Cholesterol Direct HDL Cholesterol Urine WBC (Auto) U Epithel Cells (Auto) Urine Creatinine Salicylates Acetaminophen Hepatitis C Antibody 02/10/19 02/10/19 02/10/19 04:25 04:52 07:15 WBC 11.6 H RBC 3.33 L Hgb 8.4 L Hct 27.0 L MCH 25 L RDW 20.9 H Plt Count Lymph % (Auto) [place] # Seg Neutrophils % Seg Neuts % (Manual) 89.0 H Lymphocytes % (Manual) 6.0 L Nucleated RBC % 1.0 H Seg Neutrophils # Seg Neutrophils # Man 10.3 H Lymphocytes # (Manual) 0.7 L PT INR POC ABG pH 7.287 L ABG pH POC ABG pCO2 24.3 L POC ABG pO2 ABG HCO3 ABG O2 Saturation ABG Base Excess ABG Hemoglobin Oxyhemoglobin Sodium Potassium Chloride Carbon Dioxide BUN Creatinine Glucose POC Glucose Lactic Acid 8.10 H* Calcium AST ALT Total Creatine Kinase Troponin T Total Protein Albumin Triglycerides LDL Cholesterol Direct HDL Cholesterol Urine WBC (Auto) U Epithel Cells (Auto) Urine Creatinine Salicylates Acetaminophen Hepatitis C Antibody 02/10/19 02/10/19 02/10/19 07:52 09:40 11:00 WBC RBC Hgb Hct MCH RDW Plt Count Lymph % (Auto) [place] # Seg Neutrophils % Seg Neuts % (Manual) Lymphocytes % (Manual) Nucleated RBC % Seg Neutrophils # Seg Neutrophils # Man Lymphocytes # (Manual) PT INR POC ABG pH ABG pH POC ABG pCO2 POC ABG pO2 ABG HCO3 ABG O2 Saturation ABG Base Excess ABG Hemoglobin Oxyhemoglobin Sodium Potassium Chloride Carbon Dioxide BUN Creatinine Glucose POC Glucose Lactic Acid 7.40 H* 8.00 H* 7.80 H* Calcium AST ALT Total Creatine Kinase Troponin T Total Protein Albumin Triglycerides LDL Cholesterol Direct HDL Cholesterol Urine WBC (Auto) U Epithel Cells (Auto) Urine Creatinine Salicylates Acetaminophen Hepatitis C Antibody 02/10/19 02/10/19 02/10/19 12:56 19:11 23:12 WBC RBC Hgb Hct MCH RDW Plt Count Lymph % (Auto) [place] # Seg Neutrophils % Seg Neuts % (Manual) Lymphocytes % (Manual) Nucleated RBC % Seg Neutrophils # Seg Neutrophils # Man Lymphocytes # (Manual) PT INR POC ABG pH ABG pH POC ABG pCO2 POC ABG pO2 ABG HCO3 ABG O2 Saturation ABG Base Excess ABG Hemoglobin Oxyhemoglobin Sodium Potassium Chloride Carbon Dioxide BUN Creatinine Glucose POC Glucose 149 H Lactic Acid 8.50 H* 9.30 H* Calcium AST ALT Total Creatine Kinase Troponin T Total Protein Albumin Triglycerides LDL Cholesterol Direct HDL Cholesterol Urine WBC (Auto) U Epithel Cells (Auto) Urine Creatinine Salicylates Acetaminophen Hepatitis C Antibody 02/11/19 02/11/19 02/11/19 00:12 05:09 05:42 WBC RBC Hgb Hct MCH RDW Plt Count Lymph % (Auto) [place] # Seg Neutrophils % Seg Neuts % (Manual) Lymphocytes % (Manual) Nucleated RBC % Seg Neutrophils # Seg Neutrophils # Man Lymphocytes # (Manual) PT INR POC ABG pH ABG pH POC ABG pCO2 24.2 L POC ABG pO2 77 L ABG HCO3 ABG O2 Saturation ABG Base Excess ABG Hemoglobin Oxyhemoglobin Sodium Potassium Chloride Carbon Dioxide BUN Creatinine Glucose POC Glucose 65 L 48 L Lactic Acid Calcium AST ALT Total Creatine Kinase Troponin T Total Protein Albumin Triglycerides LDL Cholesterol Direct HDL Cholesterol Urine WBC (Auto) U Epithel Cells (Auto) Urine Creatinine Salicylates Acetaminophen Hepatitis C Antibody 02/11/19 02/11/19 02/11/19 06:00 06:00 06:00 WBC 11.4 H RBC 2.86 L Hgb 7.2 L Hct 22.8 L MCH 25 L RDW 20.2 H Plt Count 136 L Lymph % (Auto) [place] # Seg Neutrophils % Seg Neuts % (Manual) Lymphocytes % (Manual) Nucleated RBC % Seg Neutrophils # Seg Neutrophils # Man Lymphocytes # (Manual) PT INR POC ABG pH ABG pH POC ABG pCO2 POC ABG pO2 ABG HCO3 ABG O2 Saturation ABG Base Excess ABG Hemoglobin Oxyhemoglobin Sodium 134 L Potassium 3.4 L D Chloride 91.6 L Carbon Dioxide 14 L BUN 92 H Creatinine 6.2 H Glucose 160 H POC Glucose Lactic Acid 9.60 H* Calcium 5.4 L* AST 244 H ALT 122 H Total Creatine Kinase Troponin T Total Protein 4.6 L Albumin 2.0 L Triglycerides LDL Cholesterol Direct HDL Cholesterol Urine WBC (Auto) U Epithel Cells (Auto) Urine Creatinine Salicylates Acetaminophen Hepatitis C Antibody 02/11/19 08:00 WBC RBC Hgb Hct MCH RDW Plt Count Lymph % (Auto) [place] # Seg Neutrophils % Seg Neuts % (Manual) Lymphocytes % (Manual) Nucleated RBC % Seg Neutrophils # Seg Neutrophils # Man Lymphocytes # (Manual) PT INR POC ABG pH ABG pH POC ABG pCO2 POC ABG pO2 ABG HCO3 ABG O2 Saturation ABG Base Excess ABG Hemoglobin Oxyhemoglobin Sodium Potassium Chloride Carbon Dioxide BUN Creatinine Glucose POC Glucose Lactic Acid 9.40 H* Calcium AST ALT Total Creatine Kinase Troponin T Total Protein Albumin Triglycerides LDL Cholesterol Direct HDL Cholesterol Urine WBC (Auto) U Epithel Cells (Auto) Urine Creatinine Salicylates Acetaminophen Hepatitis C Antibody
[2019-02-11] MEDS: CEFEPIME/NS 1 GM/100 ML 1 GM/100 ML BAG IV SCH (09:38)
[2019-02-11] MEDS ORDERED: CALCIUM GLUCONATE 1,000 MG in SODIUM CHLORIDE 0.9% 100 ML IV ONE (10:00)
[2019-02-11 11:19] LABS: Total Cells Counted 100
[2019-02-11 11:20] LABS: Band Neutrophils # (Manual) 0.5 K/mm3; Basophils % (Manual) 0 % (0.0-1.8); Eosinophils % (Manual) 0 % (0.0-4.3); Platelet Estimate Consistent w Auto; Tear Drop Cells Few
--- NOTE | 2019-02-11 11:27 | Progress Note ---
Assessment and Plan Cultures: 02/08/2019 blood culture: 1 out of 4 bottles positive Strep mitis/oralis 02/08/2019 tracheal aspirate: In process 02/11/2019 blood culture: in process A/P: 63-year-old female who is a residential resident with CVA, diabetes mellitus, hypertension, dementia was brought into the emergency room on 02/08/2019 with altered mental status and respiratory distress. In the emergency room, the patient had a cardiac arrest requiring ACLS protocol. Now with: #Septic shock, status post cardiac arrest: multiple pressors, leucocytosis. Abdo firm and slightly distended. UA with significant pyuria. Blood cultures with Strep mitis. #Strep mitis bacteremia: unclear source. 1/4 bottles, real v/s contaminant. Could be intra-abdominal source. TTE unremarkable. Follow up repeat blood cu ltures. #Possible urinary tract infection: UA showed pyuria. Follow up culture but seems initial urine culture was not done. #Acute renal failure, severe rhabdomyolysis: renally dose abx. #Elevated transaminases, likely related to rhabdomyolysis: gradual improvement to stable. #Acute respiratory failure: on the vent Recs: continue renally adjusted Cefepime, Flagyl vancomycin discontinued CT abdomen and pelvis without contrast when stable for transport follow up repeat blood cultures poor prognosis Enrique Devlin MD, FACP [facility] C: [phone] O: [phone] F: [phone] Subjective Date of service: 02/11/19 Interval history: Fever +. Remains critically ill, still on multiple pressors, vent. Lactate remains elevated. On trickle tube feeds. Objective - Exam Narrative Exam: Physical Exam: Constitutional: unresponsive, intubated Head, Ears, Nose: Normocephalic, atraumatic. External ears, nose normal Eyes: Conjunctivae/corneas clear. No icterus. No ptosis. Neck: intubated Oral: intubated Cardiovascular: S1, S2 normal. Respiratory: AE equal b/l GI: firm, slightly distended, bowel sounds normal. No peritoneal signs Musculoskeletal: pedal edema + Skin: No rash or abscess Hem/Lymphatic: No palpable cervical or supraclavicular nodes. No lymphangitis Psych: no agitation Neurological: unresponsive, intubated, on vent - Constitutional Vitals: Vital Signs Temp Pulse Resp BP Pulse Ox 99.7 F H 107 H 30 H 99/54 94 02/11/19 09:00 02/11/19 11:00 02/11/19 11:00 02/11/19 11:00 02/11/19 11:00 Temperature -Last 24 Hours Temperature 99.7 F Temperature 99.7 F Temperature 100.8 F Temperature 101.9 F Temperature 100.0 F Temperature 101.2 F Temperature 101.9 F - Labs CBC & Chem 7: 02/11/19 06:00 02/11/19 06:00 Labs: Abnormal lab results 02/10/19 02/10/19 02/10/19 Range/Units 11:00 12:56 19:11 WBC (4.5-11.0) K/mm3 RBC (3.65-5.03) M/mm3 Hgb (10.1-14.3) gm/dl Hct (30.3-42.9) % MCH (28-32) pg RDW (13.2-15.2) % Plt Count (140-440) K/mm3 Seg Neuts % (Manual) (40.0-70.0) % Lymphocytes % (Manual) (13.4-35.0) % Seg Neutrophils # Man (1.8-7.7) K/mm3 Lymphocytes # (Manual) (1.2-5.4) K/mm3 POC ABG pCO2 (35-45) POC ABG pO2 (80-105) Sodium (137-145) mmol/L Potassium (3.6-5.0) mmol/L Chloride (98-107) mmol/L Carbon Dioxide (22-30) mmol/L BUN (7-17) mg/dL Creatinine (0.7-1.2) mg/dL Glucose (65-100) mg/dL POC Glucose 149 H (70-105) Lactic Acid 7.80 H* 8.50 H* (0.7-2.0) mmol/L Calcium (8.4-10.2) mg/dL AST (5-40) units/L ALT (7-56) units/L Total Protein (6.3-8.2) g/dL Albumin (3.9-5) g/dL 02/10/19 02/11/19 02/11/19 Range/Units 23:12 00:12 05:09 WBC (4.5-11.0) K/mm3 RBC (3.65-5.03) M/mm3 Hgb (10.1-14.3) gm/dl Hct (30.3-42.9) % MCH (28-32) pg RDW (13.2-15.2) % Plt Count (140-440) K/mm3 Seg Neuts % (Manual) (40.0-70.0) % Lymphocytes % (Manual) (13.4-35.0) % Seg Neutrophils # Man (1.8-7.7) K/mm3 Lymphocytes # (Manual) (1.2-5.4) K/mm3 POC ABG pCO2 24.2 L (35-45) POC ABG pO2 77 L (80-105) Sodium (137-145) mmol/L Potassium (3.6-5.0) mmol/L Chloride (98-107) mmol/L Carbon Dioxide (22-30) mmol/L BUN (7-17) mg/dL Creatinine (0.7-1.2) mg/dL Glucose (65-100) mg/dL POC Glucose 65 L (70-105) Lactic Acid 9.30 H* (0.7-2.0) mmol/L Calcium (8.4-10.2) mg/dL AST (5-40) units/L ALT (7-56) units/L Total Protein (6.3-8.2) g/dL Albumin (3.9-5) g/dL 02/11/19 02/11/19 02/11/19 Range/Units 05:42 06:00 06:00 WBC 11.4 H (4.5-11.0) K/mm3 RBC 2.86 L (3.65-5.03) M/mm3 Hgb 7.2 L (10.1-14.3) gm/dl Hct 22.8 L (30.3-42.9) % MCH 25 L (28-32) pg RDW 20.2 H (13.2-15.2) % Plt Count 136 L (140-440) K/mm3 Seg Neuts % (Manual) 91.0 H (40.0-70.0) % Lymphocytes % (Manual) 1.0 L (13.4-35.0) % Seg Neutrophils # Man 10.4 H (1.8-7.7) K/mm3 Lymphocytes # (Manual) 0.1 L (1.2-5.4) K/mm3 POC ABG pCO2 (35-45) POC ABG pO2 (80-105) Sodium (137-145) mmol/L Potassium (3.6-5.0) mmol/L Chloride (98-107) mmol/L Carbon Dioxide (22-30) mmol/L BUN (7-17) mg/dL Creatinine (0.7-1.2) mg/dL Glucose (65-100) mg/dL POC Glucose 48 L (70-105) Lactic Acid 9.60 H* (0.7-2.0) mmol/L Calcium (8.4-10.2) mg/dL AST (5-40) units/L ALT (7-56) units/L Total Protein (6.3-8.2) g/dL Albumin (3.9-5) g/dL 02/11/19 02/11/19 Range/Units 06:00 08:00 WBC (4.5-11.0) K/mm3 RBC (3.65-5.03) M/mm3 Hgb (10.1-14.3) gm/dl Hct (30.3-42.9) % MCH (28-32) pg RDW (13.2-15.2) % Plt Count (140-440) K/mm3 Seg Neuts % (Manual) (40.0-70.0) % Lymphocytes % (Manual) (13.4-35.0) % Seg Neutrophils # Man (1.8-7.7) K/mm3 Lymphocytes # (Manual) (1.2-5.4) K/mm3 POC ABG pCO2 (35-45) POC ABG pO2 (80-105) Sodium 134 L (137-145) mmol/L Potassium 3.4 L D (3.6-5.0) mmol/L Chloride 91.6 L (98-107) mmol/L Carbon Dioxide 14 L (22-30) mmol/L BUN 92 H (7-17) mg/dL Creatinine 6.2 H (0.7-1.2) mg/dL Glucose 160 H (65-100) mg/dL POC Glucose (70-105) Lactic Acid 9.40 H* (0.7-2.0) mmol/L Calcium 5.4 L* (8.4-10.2) mg/dL AST 244 H (5-40) units/L ALT 122 H (7-56) units/L Total Protein 4.6 L (6.3-8.2) g/dL Albumin 2.0 L (3.9-5) g/dL - Imaging and cardiology Chest x-ray: report reviewed, image reviewed (no significant change)
--- NOTE | 2019-02-11 12:20 | Progress Note ---
Assessment and Plan 1. Acute kidney injury: Vasomotor XUAN in the setting of septic shock and Rhabdomyolysis. Renal US negative for hydronephrosis. Baseline renal function is unknown. Remain oliguric. Continue IV fluids. Monitor renal function. Renal prognosis is guarded. Avoid nephrotoxic agents. Meds dosage based on GFR. There is more risks than benefits in doing Hemodialysis at this point. 2. FEN: Hyperkalemia, improved. Metabolic acidosis, continue bicarbonate drip. Replete Calcium. IV fluid bolus as needed. Monitor lytes. 3. Septic shock: Currently pt is on Dobutamine, Vasopressin and Levophed. Monitor BP. 4. Respiratory failure: On vent. 5. S/p Cardiac arrest. 6. Anemia: POA. Subjective Date of service: 02/11/19 Interval history: Patient was not examined today. However the current and previous medical records are reviewed in detail as are laboratory and imaging data reviewed when appropriate. Medications being given are also reviewed. In addition the case has been discussed with the attending hospitalist when needed.Newrenalrecommendations as above. Objective - Vital Signs Vital signs: Vital Signs - 12hr 02/11/19 02/11/19 02/11/19 00:30 00:45 01:00 Temperature Pulse Rate 108 H 107 H 106 H Respiratory 30 H 30 H 30 H Rate Blood Pressure 111/57 115/63 128/66 O2 Sat by Pulse 98 98 99 Oximetry 02/11/19 02/11/19 02/11/19 01:15 01:30 01:46 Temperature Pulse Rate 106 H 109 H 112 H Respiratory 30 H 17 31 H Rate Blood Pressure 131/67 131/67 111/57 O2 Sat by Pulse 100 93 Oximetry 02/11/19 02/11/19 02/11/19 02:00 02:15 02:30 Temperature Pulse Rate 107 H 104 H 109 H Respiratory 30 H 30 H 24 Rate Blood Pressure 103/53 104/54 99/54 O2 Sat by Pulse 90 99 Oximetry 02/11/19 02/11/19 02/11/19 02:45 03:00 03:15 Temperature Pulse Rate 109 H 106 H 106 H Respiratory 30 H 30 H 30 H Rate Blood Pressure 102/57 102/53 107/60 O2 Sat by Pulse 99 Oximetry 02/11/19 02/11/19 02/11/19 03:30 03:35 03:45 Temperature Pulse Rate 105 H 105 H 104 H Respiratory 30 H 30 H Rate Blood Pressure 117/64 117/64 127/67 O2 Sat by Pulse 98 97 98 Oximetry 02/11/19 02/11/19 02/11/19 03:49 04:00 04:15 Temperature 100.8 F H Pulse Rate 103 H 102 H Respiratory 30 H 30 H Rate Blood Pressure 135/70 140/73 O2 Sat by Pulse 100 98 Oximetry 02/11/19 02/11/19 02/11/19 04:30 04:45 05:00 Temperature Pulse Rate 103 H 104 H 105 H Respiratory 30 H 30 H 30 H Rate Blood Pressure 131/69 118/69 119/66 O2 Sat by Pulse 97 97 96 Oximetry 02/11/19 02/11/19 02/11/19 05:15 05:30 05:45 Temperature Pulse Rate 104 H 104 H 103 H Respiratory 30 H 30 H 30 H Rate Blood Pressure 124/64 127/67 132/67 O2 Sat by Pulse 97 97 97 Oximetry 02/11/19 02/11/19 02/11/19 06:00 06:15 06:30 Temperature Pulse Rate 105 H 104 H 104 H Respiratory 30 H 30 H 30 H Rate Blood Pressure 114/64 116/66 122/68 O2 Sat by Pulse 97 98 98 Oximetry 02/11/19 02/11/19 02/11/19 06:45 07:00 07:15 Temperature Pulse Rate 105 H 106 H 105 H Respiratory 30 H 30 H 30 H Rate Blood Pressure 104/61 111/63 102/56 O2 Sat by Pulse 96 97 96 Oximetry 02/11/19 02/11/19 02/11/19 07:30 07:45 08:00 Temperature 99.7 F H Pulse Rate 105 H 105 H 105 H Respiratory 30 H 30 H 30 H Rate Blood Pressure 90/52 81/57 112/60 O2 Sat by Pulse 96 97 98 Oximetry 02/11/19 02/11/19 02/11/19 08:15 08:30 08:45 Temperature Pulse Rate 104 H 105 H 106 H Respiratory 30 H 30 H 21 Rate Blood Pressure 100/67 112/60 99/52 O2 Sat by Pulse 98 97 94 Oximetry 02/11/19 02/11/19 02/11/19 09:00 09:15 09:30 Temperature 99.7 F H Pulse Rate 105 H 105 H 104 H Respiratory 30 H 30 H 30 H Rate Blood Pressure 101/59 107/58 107/60 O2 Sat by Pulse 96 94 95 Oximetry 02/11/19 02/11/19 02/11/19 09:45 10:00 10:15 Temperature Pulse Rate 104 H 106 H 106 H Respiratory 30 H 15 30 H Rate Blood Pressure 112/62 106/64 104/57 O2 Sat by Pulse 96 97 97 Oximetry 02/11/19 02/11/19 02/11/19 10:30 10:45 11:00 Temperature Pulse Rate 106 H 107 H 107 H Respiratory 16 30 H 30 H Rate Blood Pressure 93/59 98/54 99/54 O2 Sat by Pulse 95 95 94 Oximetry 02/11/19 11:55 Temperature Pulse Rate 108 H Respiratory Rate Blood Pressure 109/56 O2 Sat by Pulse 96 Oximetry - Lab 02/11/19 06:00 02/11/19 06:00 Most recent lab results ABG pH 7.106 pH Units (7.350-7.450) L* 02/09/19 00:40 ABG pCO2 35.0 mm Hg 02/09/19 00:40 ABG pO2 89.4 mm Hg (80.0-90.0) 02/09/19 00:40 ABG HCO3 10.8 mmol/L (20.0-26.0) L 02/09/19 00:40 ABG O2 Saturation 94.6 % (95.0-99.0) L 02/09/19 00:40 Calcium 5.4 mg/dL (8.4-10.2) L* 02/11/19 06:00 Magnesium 2.30 mg/dL (1.7-2.3) 02/08/19 13:15 Urine Creatinine 34.3 mg/dL (0.1-20.0) H 02/09/19 02:39 Urine Sodium 119 mmol/L 02/09/19 02:39 Medications & Allergies - Medications Allergies/Adverse Reactions: Allergies famotidine [From Pepcid] Allergy (Verified 02/08/19 17:02) Unknown Pork/Porcine Containing Products Allergy (Verified 02/08/19 17:02) Unknown shellfish derived Allergy (Verified 02/08/19 13:47) Unknown spinach Allergy (Verified 02/08/19 17:02) Unknown strawberry Allergy (Verified 02/08/19 17:02) Unknown Home Medications: Home Medications Medication Instructions Recorded Confirmed Last Taken Type Acetaminophen [Mapap] 650 mg PO Q6H PRN 02/08/19 02/08/19 Unknown History Albuterol Sulfate [Proventil Hfa] 6.7 gm IH Q6H PRN 02/08/19 02/08/19 Unknown History Aspirin [Aspirin BABY CHEW TAB] 81 mg PO QDAY 02/08/19 02/08/19 Unknown History AtorvaSTATin [Lipitor] 10 mg PO QHS 02/08/19 02/08/19 Unknown History Calcium Carbonate [Calcium 600MG 600 mg PO DAILY 02/08/19 02/08/19 Unknown History TAB] Cyclobenzaprine [Flexeril] 10 mg PO BID PRN 02/08/19 02/08/[address] [DepaKOTE DR] 125 mg PO DAILY 02/08/19 02/08/19 Unknown History Divalproex ER [DepaKOTE ER] 500 mg PO QHS 02/08/19 02/08/19 Unknown History Donepezil HCl [Donepezil HCl Odt] 10 mg PO QHS 02/08/19 02/08/19 Unknown History Gabapentin [Neurontin] 300 mg PO DAILY 02/08/19 02/08/19 Unknown History Ibuprofen [Motrin] 800 mg PO Q8HR PRN 02/08/19 02/08/19 Unknown History Latanoprost 0.005% [Xalatan 0.005%] 1 drop OP QHS 02/08/19 02/08/19 Unknown History Lisinopril [Zestril TAB] 40 mg PO QDAY 02/08/19 02/08/19 Unknown History Memantine [Namenda] 10 mg PO BID 02/08/19 02/08/19 Unknown History Pantoprazole Sodium [Protonix] 40 mg PO DAILY 02/08/19 02/08/19 Unknown History Sennosides [Senna] 8.6 mg PO Q6H PRN 02/08/19 02/08/19 Unknown History Sertraline [Zoloft] 125 mg PO QDAY 02/08/19 02/08/19 Unknown History Tiotropium [place] [Spiriva] 18 mcg IH DAILY 02/08/19 02/08/19 Unknown History hydroCHLOROthiazide [HCTZ] 25 mg PO QDAY 02/08/19 02/08/19 Unknown History labetaloL [Labetalol 200mg TAB] 400 mg PO Q8H 02/08/19 02/08/19 Unknown History metFORMIN [Glucophage] 500 mg PO BID 02/08/19 02/08/19 Unknown History Active Medications: Generic Name Dose Route Start Last Admin Trade Name Freq PRN Reason Stop Dose Admin Acetaminophen 650 mg 02/10/19 03:28 02/10/19 19:05 Tylenol PO 650 mg Q4H PRN Administration Fever >101 Fentanyl 50 mcg 02/09/19 11:36 Sublimaze IV Q10MIN PRN ANALGESIA Heparin Sodium (Porcine) 5,000 unit 02/08/19 22:00 02/11/19 09:04 Heparin SUB-Q 5,000 unit Q12HR YANNA Administration Hydrophilic Ointment 1 applic 02/09/19 11:36 Vaseline Lip Therapy TP Q2HR PRN Dry Lips Norepinephrine 4 mg in 250 mls @ 7.5 mls/hr 02/08/19 14:00 02/11/19 12:12 Levophed Drip 4 Mg/Ns 250 Ml IV 16 mcg/min TITR YANNA 60 mls/hr Administration Protocol 2 MCG/MIN Dopamine HCl/Dextrose 800 mg in 250 mls @ 3.274 mls/hr 02/08/19 15:15 1 04/12/18 12:59 Intropin Drip 800 Mg/D5w 250 Ml IV 02/11/19 19:36 2 mcg/kg/min TITR ONE 3.274 mls/hr Titration Protocol 2 MCG/KG/MIN Dobutamine HCl/Dextrose 500 mg in 250 mls @ 5.239 mls/hr 02/08/19 20:00 02/11/19 08:46 Dobutrex Drip 500mg/D5w 250ml IV 6 mcg/kg/min TITR YANNA 15.717 mls/hr Administration Protocol 2 MCG/KG/MIN Levofloxacin/Dextrose 500 mg in 100 mls @ 100 mls/hr 02/11/19 10:00 02/11/19 09:04 Levaquin 500mg/100ml IV 100 mls/hr Q48H YANNA Administration Protocol Fentanyl Citrate 2,000 mcg in 100 mls @ 4.366 mls/hr 02/09/19 12:00 02/09/19 21:12 Fentanyl Drip Premix IV 1 mcg/kg/hr TITR YANNA 4.366 mls/hr Administration Protocol 1 MCG/KG/HR Midazolam HCl 100 mg/ Sodium 100 mls @ 2 mls/hr 02/09/19 12:00 Chloride IV TITR YANNA Protocol 2 MG/HR Cefepime HCl 1 gm in 100 mls @ 200 mls/hr 02/09/19 13:00 02/11/19 09:38 Cefepime/Ns 1 Gm/100 Ml IV 200 mls/hr Q24HR YANNA Administration Protocol Vasopressin 20 unit/ Sodium 101 mls @ 9.09 mls/hr 02/09/19 13:00 02/11/19 08:47 Chloride IV 0.03 units/min TITR YANNA 9.09 mls/hr Administration Protocol 0.03 UNITS/MIN Sodium Bicarbonate 150 meq/ 1,150 mls @ 150 mls/hr 02/09/19 13:00 02/11/19 11:23 Dextrose IV 150 mls/hr DIRECT YANNA Administration Midazolam HCl 2 mg 02/09/19 11:36 Versed IV Q10MIN PRN Sedation Multi-Ingred Cream/Lotion/Oil/Oint 1 applic 02/09/19 11:36 Artificial Tears Ophth Oint OU Q4HR PRN Dry Eye(s) Pantoprazole Sodium 40 mg 02/09/19 14:00 02/11/19 09:03 Protonix IV 40 mg QDAY YANNA Administration Sodium Chloride 10 ml 02/08/19 22:00 02/11/19 09:04 Sodium Chloride Flush Syringe 10 Ml IV 10 ml BID YANNA Administration Sodium Chloride 10 ml 02/08/19 15:44 Sodium Chloride Flush Syringe 10 Ml IV PRN PRN LINE FLUSH
--- NOTE | 2019-02-11 13:09 | Progress Note ---
Assessment and Plan s/p Cardiopulmonary arrest with ROSC -Severe sepsis with septic shock -Acute hypoxemic respiratory failure on MVS -GPC bacteremia -Acute renal failure- vasomotor nephropathy/Rhabdomyolysis -Moderate pulmonary HTN RVSP 51 -Elevated transaminases -h/o CVA -Hyernatremia- improved -Thrombocytopenia PLAN - Wean vasopressor support for MAP>65, currently on vasopressin, norepinephrine -Volume resuscitation per sepsis protocol, persistent lactic acidosis with high base excess -VAP bundle addressed -Aspiration precautions, HOB>40 degrees - Lung protective strategies -Adjust minute ventilation for better acid-base balance -CXR, ABG in am -CBC, BMP and lactic acid in am - Assessment daily for suitability for SAT, SBT as tolerated -Advance tube feedings as tolerated, hold for high residuals - Continue to hold sedation for now -Broad spectrum per ID antibiotics . Currently on Cefepime, Levofloxacin and Vancomycin, de-escalate based on cultures and clinical status -Place on contact isolation, until the GPC are identified. She is a high risk patient for MRSA -VTE prophylaxis( heparin BID)- conitue for now, trend platelet count and for any bleeding -Stress ulcer prophylaxis( pantoprazola) - Accuchecks with glycemic control for SSI (While critically ill target blood glucose of 140-180 mg/dL; avoid hypoglycemia) - mobility protocol for pressure ulcer prevention - Continue to monitor hemodynamics closely -Monitor hemoglobin, supportive transfusions for HgB <7g/dL -Ledezma catheter in this critically ill patient, with poor urine output, requiring accurate intake and output monitoring. - Free water flushes to 200ml, hypernatremia has improved -Change right groin line to a IJ or SVC- she may need it changed to a trialysis catheter. CONDITION: CRITICAL PROGNOSIS: GUARDED-POOR CODE STATUS: FULL CODE The high probability of a clinically significant, sudden or life-threatening deterioration of the [respiratory, cardiovascular, renal, neurology] system(s) required my full and direct attention, intervention and personal management. The aggregate critical care time was [35] minutes without overlap. Time includes spent on; [x] Data Review and interpretation [x] Patient assessment and monitoring of vital signs [x] Documentation [x] Medication orders and management Subjective Date of service: 02/11/19 Interval history: 63-year-old female who is a jail resident with CVA residual left katina paresis/hemiplegia, diabetes mellitus, hypertension, dementia was brought into the emergency room on 02/08/2019 with altered mental status and respiratory distress. In the emergency room, the patient had a cardiac arrest requiring ACLS protocol. Seen and examined at bedside; 24hour events reviewed; nursing and respiratory care staff consulted; discussed in ICU -IDT rounds. Currently on norepinephrine, vasopressin and bicarbonate infusions. Has right groin femoral CVC, and a ledezma catheter in. Currently on AC-VC 30/550/6/60% ABG 7.361/24/77/13.7/-12 BE Vitals, labs, medications, chart and imaging reviewed Remains critically ill, no real improvement in the last 24 hours Objective - Exam Narrative Exam: Constitutional: unresponsive, intubated ETT at 23cm at the lip Head, Ears, Nose: Normocephalic, atraumatic. External ears, nose normal Eyes: Conjunctivae/corneas clear. No icterus. No ptosis. Neck: intubated Oral: intubated, dry lips and tongue with blueish discoloration of lips Cardiovascular: S1, S2 normal. Respiratory: Good air entry, coarse BS auscultation bilaterally GI: firm, slightly distended, bowel sounds normal. No peritoneal signs Musculoskeletal: No pedal edema, no cyanosis. Skin: No rash or abscess Psych: no agitation Neurological: unresponsive, intubated, on vent Vital Signs - 12hr 02/11/19 02/11/19 02/11/19 01:15 01:30 01:46 Temperature Pulse Rate 106 H 109 H 112 H Respiratory 30 H 17 31 H Rate Blood Pressure 131/67 131/67 111/57 O2 Sat by Pulse 100 93 Oximetry 02/11/19 02/11/19 02/11/19 02:00 02:15 02:30 Temperature Pulse Rate 107 H 104 H 109 H Respiratory 30 H 30 H 24 Rate Blood Pressure 103/53 104/54 99/54 O2 Sat by Pulse 90 99 Oximetry 02/11/19 02/11/19 02/11/19 02:45 03:00 03:15 Temperature Pulse Rate 109 H 106 H 106 H Respiratory 30 H 30 H 30 H Rate Blood Pressure 102/57 102/53 107/60 O2 Sat by Pulse 99 Oximetry 02/11/19 02/11/19 02/11/19 03:30 03:35 03:45 Temperature Pulse Rate 105 H 105 H 104 H Respiratory 30 H 30 H Rate Blood Pressure 117/64 117/64 127/67 O2 Sat by Pulse 98 97 98 Oximetry 02/11/19 02/11/19 02/11/19 03:49 04:00 04:15 Temperature 100.8 F H Pulse Rate 103 H 102 H Respiratory 30 H 30 H Rate Blood Pressure 135/70 140/73 O2 Sat by Pulse 100 98 Oximetry 02/11/19 02/11/19 02/11/19 04:30 04:45 05:00 Temperature Pulse Rate 103 H 104 H 105 H Respiratory 30 H 30 H 30 H Rate Blood Pressure 131/69 118/69 119/66 O2 Sat by Pulse 97 97 96 Oximetry 02/11/19 02/11/19 02/11/19 05:15 05:30 05:45 Temperature Pulse Rate 104 H 104 H 103 H Respiratory 30 H 30 H 30 H Rate Blood Pressure 124/64 127/67 132/67 O2 Sat by Pulse 97 97 97 Oximetry 02/11/19 02/11/19 02/11/19 06:00 06:15 06:30 Temperature Pulse Rate 105 H 104 H 104 H Respiratory 30 H 30 H 30 H Rate Blood Pressure 114/64 116/66 122/68 O2 Sat by Pulse 97 98 98 Oximetry 02/11/19 02/11/19 02/11/19 06:45 07:00 07:15 Temperature Pulse Rate 105 H 106 H 105 H Respiratory 30 H 30 H 30 H Rate Blood Pressure 104/61 111/63 102/56 O2 Sat by Pulse 96 97 96 Oximetry 02/11/19 02/11/19 02/11/19 07:30 07:45 08:00 Temperature 99.7 F H Pulse Rate 105 H 105 H 105 H Respiratory 30 H 30 H 30 H Rate Blood Pressure 90/52 81/57 112/60 O2 Sat by Pulse 96 97 98 Oximetry 02/11/19 02/11/19 02/11/19 08:15 08:30 08:45 Temperature Pulse Rate 104 H 105 H 106 H Respiratory 30 H 30 H 21 Rate Blood Pressure 100/67 112/60 99/52 O2 Sat by Pulse 98 97 94 Oximetry 02/11/19 02/11/19 02/11/19 09:00 09:15 09:30 Temperature 99.7 F H Pulse Rate 105 H 105 H 104 H Respiratory 30 H 30 H 30 H Rate Blood Pressure 101/59 107/58 107/60 O2 Sat by Pulse 96 94 95 Oximetry 02/11/19 02/11/19 02/11/19 09:45 10:00 10:15 Temperature Pulse Rate 104 H 106 H 106 H Respiratory 30 H 15 30 H Rate Blood Pressure 112/62 106/64 104/57 O2 Sat by Pulse 96 97 97 Oximetry 02/11/19 02/11/19 02/11/19 10:30 10:45 11:00 Temperature Pulse Rate 106 H 107 H 107 H Respiratory 16 30 H 30 H Rate Blood Pressure 93/59 98/54 99/54 O2 Sat by Pulse 95 95 94 Oximetry 02/11/19 02/11/19 02/11/19 11:15 11:30 11:45 Temperature Pulse Rate 108 H 112 H 108 H Respiratory 19 12 30 H Rate Blood Pressure 98/51 104/61 109/56 O2 Sat by Pulse 34 L 100 97 Oximetry 02/11/19 02/11/19 02/11/19 11:55 12:00 12:15 Temperature 100.2 F H Pulse Rate 108 H 108 H 108 H Respiratory 24 28 H Rate Blood Pressure 109/56 103/57 103/58 O2 Sat by Pulse 96 96 99 Oximetry CBC and BMP: 02/11/19 06:00 02/11/19 06:00 ABG, PT/INR, D-dimer: ABG POC ABG pH 7.361 (7.35-7.45) 02/11/19 05:09 ABG pH 7.106 pH Units (7.350-7.450) L* 02/09/19 00:40 POC ABG pCO2 24.2 (35-45) L 02/11/19 05:09 ABG pCO2 35.0 mm Hg 02/09/19 00:40 POC ABG pO2 77 (80-105) L 02/11/19 05:09 ABG pO2 89.4 mm Hg (80.0-90.0) 02/09/19 00:40 POC ABG HCO3 13.7 (22-26 mml/L) 02/11/19 05:09 POC ABG Total CO2 14 (23-27mmol/L) 02/11/19 05:09 POC ABG O2 Sat 95 02/11/19 05:09 ABG O2 Saturation 94.6 % (95.0-99.0) L 02/09/19 00:40 PT/INR, D-dimer PT 16.0 Sec. (12.2-14.9) H 02/08/19 13:15 INR 1.26 (0.87-1.13) H 02/08/19 13:15 Abnormal lab findings: Abnormal Labs 02/08/19 02/08/19 02/08/19 13:15 13:15 13:15 WBC 16.5 H RBC Hgb 9.6 L Hct MCH 25 L RDW 20.5 H Plt Count Lymph % (Auto) 10.5 L [place] # 0.9 H Seg Neutrophils % 84.0 H Seg Neuts % (Manual) Lymphocytes % (Manual) Nucleated RBC % Seg Neutrophils # 13.8 H Seg Neutrophils # Man Lymphocytes # (Manual) PT INR POC ABG pH ABG pH POC ABG pCO2 POC ABG pO2 ABG HCO3 ABG O2 Saturation ABG Base Excess ABG Hemoglobin Oxyhemoglobin Sodium Potassium Chloride Carbon Dioxide BUN Creatinine Glucose POC Glucose Lactic Acid 7.30 H* Calcium AST ALT Total Creatine Kinase Troponin T 0.079 H Total Protein Albumin Triglycerides 379 H LDL Cholesterol Direct 16 L HDL Cholesterol 22 L Urine WBC (Auto) U Epithel Cells (Auto) Urine Creatinine Salicylates Acetaminophen Hepatitis C Antibody 02/08/19 02/08/19 02/08/19 13:15 13:15 13:15 WBC RBC Hgb Hct MCH RDW Plt Count Lymph % (Auto) [place] # Seg Neutrophils % Seg Neuts % (Manual) Lymphocytes % (Manual) Nucleated RBC % Seg Neutrophils # Seg Neutrophils # Man Lymphocytes # (Manual) PT 16.0 H INR 1.26 H POC ABG pH ABG pH POC ABG pCO2 POC ABG pO2 ABG HCO3 ABG O2 Saturation ABG Base Excess ABG Hemoglobin Oxyhemoglobin Sodium 150 H Potassium 5.8 H Chloride Carbon Dioxide 16 L BUN 91 H Creatinine 7.6 H Glucose POC Glucose Lactic Acid Calcium AST 157 H ALT 64 H Total Creatine Kinase 9438 H Troponin T Total Protein Albumin Triglycerides LDL Cholesterol Direct HDL Cholesterol Urine WBC (Auto) U Epithel Cells (Auto) Urine Creatinine Salicylates < 0.3 L Acetaminophen Hepatitis C Antibody 02/08/19 02/08/19 02/08/19 13:15 14:45 14:53 WBC RBC Hgb Hct MCH RDW Plt Count Lymph % (Auto) [place] # Seg Neutrophils % Seg Neuts % (Manual) Lymphocytes % (Manual) Nucleated RBC % Seg Neutrophils # Seg Neutrophils # Man Lymphocytes # (Manual) PT INR POC ABG pH 7.126 L ABG pH POC ABG pCO2 POC ABG pO2 174 H ABG HCO3 ABG O2 Saturation ABG Base Excess ABG Hemoglobin Oxyhemoglobin Sodium Potassium Chloride Carbon Dioxide BUN Creatinine Glucose POC Glucose Lactic Acid Calcium AST ALT Total Creatine Kinase Troponin T Total Protein Albumin Triglycerides LDL Cholesterol Direct HDL Cholesterol Urine WBC (Auto) > 182.0 H U Epithel Cells (Auto) 14.0 H Urine Creatinine Salicylates Acetaminophen < 5.0 L Hepatitis C Antibody 02/08/19 02/08/19 02/08/19 19:54 20:47 23:25 WBC RBC Hgb Hct MCH RDW Plt Count Lymph % (Auto) [place] # Seg Neutrophils % Seg Neuts % (Manual) Lymphocytes % (Manual) Nucleated RBC % Seg Neutrophils # Seg Neutrophils # Man Lymphocytes # (Manual) PT INR POC ABG pH ABG pH POC ABG pCO2 POC ABG pO2 ABG HCO3 ABG O2 Saturation ABG Base Excess ABG Hemoglobin Oxyhemoglobin Sodium 150 H Potassium 5.9 H Chloride 109.8 H Carbon Dioxide 11 L BUN 86 H Creatinine 6.2 H Glucose POC Glucose Lactic Acid 6.40 H* 5.40 H* Calcium 6.9 L D AST ALT Total Creatine Kinase Troponin T Total Protein Albumin Triglycerides LDL Cholesterol Direct HDL Cholesterol Urine WBC (Auto) U Epithel Cells (Auto) Urine Creatinine Salicylates Acetaminophen Hepatitis C Antibody 02/09/19 02/09/19 02/09/19 00:40 02:39 03:38 WBC 19.9 H RBC 3.37 L Hgb 8.8 L Hct 28.6 L MCH 26 L RDW 21.7 H Plt Count Lymph % (Auto) [place] # Seg Neutrophils % Seg Neuts % (Manual) 82.0 H Lymphocytes % (Manual) 12.0 L Nucleated RBC % 1.0 H Seg Neutrophils # Seg Neutrophils # Man 16.3 H Lymphocytes # (Manual) PT INR POC ABG pH ABG pH 7.106 L* POC ABG pCO2 POC ABG pO2 ABG HCO3 10.8 L ABG O2 Saturation 94.6 L ABG Base Excess -17.7 L ABG Hemoglobin 10.8 L Oxyhemoglobin 92.7 L Sodium Potassium Chloride Carbon Dioxide BUN Creatinine Glucose POC Glucose Lactic Acid Calcium AST ALT Total Creatine Kinase Troponin T Total Protein Albumin Triglycerides LDL Cholesterol Direct HDL Cholesterol Urine WBC (Auto) U Epithel Cells (Auto) Urine Creatinine 34.3 H Salicylates Acetaminophen Hepatitis C Antibody 02/09/19 02/09/19 02/09/19 03:38 03:38 07:02 WBC RBC Hgb Hct MCH RDW Plt Count Lymph % (Auto) [place] # Seg Neutrophils % Seg Neuts % (Manual) Lymphocytes % (Manual) Nucleated RBC % Seg Neutrophils # Seg Neutrophils # Man Lymphocytes # (Manual) PT INR POC ABG pH ABG pH POC ABG pCO2 POC ABG pO2 ABG HCO3 ABG O2 Saturation ABG Base Excess ABG Hemoglobin Oxyhemoglobin Sodium 148 H Potassium 5.1 H Chloride 110.9 H Carbon Dioxide 14 L BUN 87 H Creatinine 6.4 H Glucose 280 H POC Glucose Lactic Acid 5.10 H* 3.30 H* Calcium 6.7 L AST 329 H ALT 167 H Total Creatine Kinase 46142 H Troponin T Total Protein 5.7 L D Albumin 2.7 L Triglycerides LDL Cholesterol Direct HDL Cholesterol Urine WBC (Auto) U Epithel Cells (Auto) Urine Creatinine Salicylates Acetaminophen Hepatitis C Antibody 02/09/19 02/09/19 02/09/19 11:37 11:41 15:56 WBC RBC Hgb Hct MCH RDW Plt Count Lymph % (Auto) [place] # Seg Neutrophils % Seg Neuts % (Manual) Lymphocytes % (Manual) Nucleated RBC % Seg Neutrophils # Seg Neutrophils # Man Lymphocytes # (Manual) PT INR POC ABG pH 7.174 L ABG pH POC ABG pCO2 POC ABG pO2 ABG HCO3 ABG O2 Saturation ABG Base Excess ABG Hemoglobin Oxyhemoglobin Sodium Potassium Chloride Carbon Dioxide BUN Creatinine Glucose POC Glucose Lactic Acid 3.60 H* 7.10 H* Calcium AST ALT Total Creatine Kinase Troponin T Total Protein Albumin Triglycerides LDL Cholesterol Direct HDL Cholesterol Urine WBC (Auto) U Epithel Cells (Auto) Urine Creatinine Salicylates Acetaminophen Hepatitis C Antibody 02/09/19 02/09/19 02/09/19 19:18 19:18 22:20 WBC RBC Hgb Hct MCH RDW Plt Count Lymph % (Auto) [place] # Seg Neutrophils % Seg Neuts % (Manual) Lymphocytes % (Manual) Nucleated RBC % Seg Neutrophils # Seg Neutrophils # Man Lymphocytes # (Manual) PT INR POC ABG pH 7.294 L ABG pH POC ABG pCO2 24.0 L POC ABG pO2 166 H ABG HCO3 ABG O2 Saturation ABG Base Excess ABG Hemoglobin Oxyhemoglobin Sodium Potassium Chloride Carbon Dioxide BUN Creatinine Glucose POC Glucose Lactic Acid 6.10 H* Calcium AST ALT Total Creatine Kinase Troponin T Total Protein Albumin Triglycerides LDL Cholesterol Direct HDL Cholesterol Urine WBC (Auto) U Epithel Cells (Auto) Urine Creatinine Salicylates Acetaminophen Hepatitis C Antibody Reactive A 02/09/19 02/10/19 02/10/19 23:00 04:25 04:25 WBC RBC Hgb Hct MCH RDW Plt Count Lymph % (Auto) [place] # Seg Neutrophils % Seg Neuts % (Manual) Lymphocytes % (Manual) Nucleated RBC % Seg Neutrophils # Seg Neutrophils # Man Lymphocytes # (Manual) PT INR POC ABG pH ABG pH POC ABG pCO2 POC ABG pO2 ABG HCO3 ABG O2 Saturation ABG Base Excess ABG Hemoglobin Oxyhemoglobin Sodium Potassium Chloride Carbon Dioxide 11 L 11 L BUN 93 H 97 H Creatinine 6.4 H 6.4 H Glucose 215 H 219 H POC Glucose Lactic Acid 8.00 H* Calcium 6.0 L 6.3 L AST 224 H ALT 131 H Total Creatine Kinase 8167 H Troponin T Total Protein 5.2 L Albumin 2.3 L Triglycerides LDL Cholesterol Direct HDL Cholesterol Urine WBC (Auto) U Epithel Cells (Auto) Urine Creatinine Salicylates Acetaminophen Hepatitis C Antibody 02/10/19 02/10/19 02/10/19 04:25 04:52 07:15 WBC 11.6 H RBC 3.33 L Hgb 8.4 L Hct 27.0 L MCH 25 L RDW 20.9 H Plt Count Lymph % (Auto) [place] # Seg Neutrophils % Seg Neuts % (Manual) 89.0 H Lymphocytes % (Manual) 6.0 L Nucleated RBC % 1.0 H Seg Neutrophils # Seg Neutrophils # Man 10.3 H Lymphocytes # (Manual) 0.7 L PT INR POC ABG pH 7.287 L ABG pH POC ABG pCO2 24.3 L POC ABG pO2 ABG HCO3 ABG O2 Saturation ABG Base Excess ABG Hemoglobin Oxyhemoglobin Sodium Potassium Chloride Carbon Dioxide BUN Creatinine Glucose POC Glucose Lactic Acid 8.10 H* Calcium AST ALT Total Creatine Kinase Troponin T Total Protein Albumin Triglycerides LDL Cholesterol Direct HDL Cholesterol Urine WBC (Auto) U Epithel Cells (Auto) Urine Creatinine Salicylates Acetaminophen Hepatitis C Antibody 02/10/19 02/10/19 02/10/19 07:52 09:40 11:00 WBC RBC Hgb Hct MCH RDW Plt Count Lymph % (Auto) [place] # Seg Neutrophils % Seg Neuts % (Manual) Lymphocytes % (Manual) Nucleated RBC % Seg Neutrophils # Seg Neutrophils # Man Lymphocytes # (Manual) PT INR POC ABG pH ABG pH POC ABG pCO2 POC ABG pO2 ABG HCO3 ABG O2 Saturation ABG Base Excess ABG Hemoglobin Oxyhemoglobin Sodium Potassium Chloride Carbon Dioxide BUN Creatinine Glucose POC Glucose Lactic Acid 7.40 H* 8.00 H* 7.80 H* Calcium AST ALT Total Creatine Kinase Troponin T Total Protein Albumin Triglycerides LDL Cholesterol Direct HDL Cholesterol Urine WBC (Auto) U Epithel Cells (Auto) Urine Creatinine Salicylates Acetaminophen Hepatitis C Antibody 02/10/19 02/10/19 02/10/19 12:56 19:11 23:12 WBC RBC Hgb Hct MCH RDW Plt Count Lymph % (Auto) [place] # Seg Neutrophils % Seg Neuts % (Manual) Lymphocytes % (Manual) Nucleated RBC % Seg Neutrophils # Seg Neutrophils # Man Lymphocytes # (Manual) PT INR POC ABG pH ABG pH POC ABG pCO2 POC ABG pO2 ABG HCO3 ABG O2 Saturation ABG Base Excess ABG Hemoglobin Oxyhemoglobin Sodium Potassium Chloride Carbon Dioxide BUN Creatinine Glucose POC Glucose 149 H Lactic Acid 8.50 H* 9.30 H* Calcium AST ALT Total Creatine Kinase Troponin T Total Protein Albumin Triglycerides LDL Cholesterol Direct HDL Cholesterol Urine WBC (Auto) U Epithel Cells (Auto) Urine Creatinine Salicylates Acetaminophen Hepatitis C Antibody 02/11/19 02/11/19 02/11/19 00:12 05:09 05:42 WBC RBC Hgb Hct MCH RDW Plt Count Lymph % (Auto) [place] # Seg Neutrophils % Seg Neuts % (Manual) Lymphocytes % (Manual) Nucleated RBC % Seg Neutrophils # Seg Neutrophils # Man Lymphocytes # (Manual) PT INR POC ABG pH ABG pH POC ABG pCO2 24.2 L POC ABG pO2 77 L ABG HCO3 ABG O2 Saturation ABG Base Excess ABG Hemoglobin Oxyhemoglobin Sodium Potassium Chloride Carbon Dioxide BUN Creatinine Glucose POC Glucose 65 L 48 L Lactic Acid Calcium AST ALT Total Creatine Kinase Troponin T Total Protein Albumin Triglycerides LDL Cholesterol Direct HDL Cholesterol Urine WBC (Auto) U Epithel Cells (Auto) Urine Creatinine Salicylates Acetaminophen Hepatitis C Antibody 02/11/19 02/11/19 02/11/19 06:00 06:00 06:00 WBC 11.4 H RBC 2.86 L Hgb 7.2 L Hct 22.8 L MCH 25 L RDW 20.2 H Plt Count 136 L Lymph % (Auto) [place] # Seg Neutrophils % Seg Neuts % (Manual) 91.0 H Lymphocytes % (Manual) 1.0 L Nucleated RBC % Seg Neutrophils # Seg Neutrophils # Man 10.4 H Lymphocytes # (Manual) 0.1 L PT INR POC ABG pH ABG pH POC ABG pCO2 POC ABG pO2 ABG HCO3 ABG O2 Saturation ABG Base Excess ABG Hemoglobin Oxyhemoglobin Sodium 134 L Potassium 3.4 L D Chloride 91.6 L Carbon Dioxide 14 L BUN 92 H Creatinine 6.2 H Glucose 160 H POC Glucose Lactic Acid 9.60 H* Calcium 5.4 L* AST 244 H ALT 122 H Total Creatine Kinase Troponin T Total Protein 4.6 L Albumin 2.0 L Triglycerides LDL Cholesterol Direct HDL Cholesterol Urine WBC (Auto) U Epithel Cells (Auto) Urine Creatinine Salicylates Acetaminophen Hepatitis C Antibody 02/11/19 08:00 WBC RBC Hgb Hct MCH RDW Plt Count Lymph % (Auto) [place] # Seg Neutrophils % Seg Neuts % (Manual) Lymphocytes % (Manual) Nucleated RBC % Seg Neutrophils # Seg Neutrophils # Man Lymphocytes # (Manual) PT INR POC ABG pH ABG pH POC ABG pCO2 POC ABG pO2 ABG HCO3 ABG O2 Saturation ABG Base Excess ABG Hemoglobin Oxyhemoglobin Sodium Potassium Chloride Carbon Dioxide BUN Creatinine Glucose POC Glucose Lactic Acid 9.40 H* Calcium AST ALT Total Creatine Kinase Troponin T Total Protein Albumin Triglycerides LDL Cholesterol Direct HDL Cholesterol Urine WBC (Auto) U Epithel Cells (Auto) Urine Creatinine Salicylates Acetaminophen Hepatitis C Antibody Additional Studies: Transthoracic echocardiogram- Preserved EF 50-55% RVSP 51mmHg
[2019-02-11] MEDS ORDERED: CALCIUM GLUCONATE 2,000 MG in SODIUM CHLORIDE 0.9% 100 ML IV ONE (13:17)
[2019-02-11] MEDS ORDERED: IPRATROPIUM/ALBUTEROL SULFATE 3 ML AMPUL.NEB IH ONE (13:34)
[2019-02-11] MEDS ORDERED: levETIRAcetam 1,000 MG in DEXTROSE 5% IN WATER 100 ML IV ONE (14:00)
--- NOTE | 2019-02-11 14:46 | Progress Note ---
Assessment and Plan / s/p Cardiac arrest Pt treated ACLS protocol with return of perfusing cardiac rhythm. admitted to ICU preserved EF on echo, monitor clinically, currently on 3 pressors /Acute metabolic Encephalopathy with possible anoxic brain injury CT head pending, cont neuro check, supportive care, IVF resuscitation therapy, /Acute hypoxic Respiratory failure Pt intubated, sedated, and placed on vent support, cont serial ABG, daily CXR, wean vent as tolerated, daily SBT, Sedation holiday, pulmonary team following / Sepsis with severe shock likely from UTI and asp PNA cont Sepsis protocol: Iv antibiotic therapy, IVF resuscitation therapy, monitor uop q shift, cont IV pressor support to maintain MAP greater than 60, serial lactic acid Plan for CT abdomen/pelvis when more stable / XUAN (acute kidney injury), likely ATN IVF resuscitation therapy, monitor uop q shift, BMP in the am, Nephrology consulted, renal ultrasound showed normal kidneys / Metabolic acidosis - worsening IV bicarbonate therapy, serial lactic acid / UTI (urinary tract infection) cont IV antibiotic therapy, follow urine cx, /Elevated transaminases, - likely related to rhabdomyolysis and underlying hep C, monitor LFT /Rhabdomyolysis, likely from cardiac arrest, cont iv fluid / DVT prophylaxis SCD to BLE while in bed, prophylactic heparin Very poor prognosis, critically ill. The high probability of a clinically significant, sudden or life threatening deterioration of the [Neuro, respiratory, renal] system(s) required my full and direct attention, intervention and personal management. The aggregate critical care time was [35] minutes. This time is in addition to time spent performing reported procedures but includes the following: [x] Data Review and interpretation [x] Patient assessment and monitoring of vital signs [x] Documentation [x] Medication orders and management Subjective Date of service: 02/11/19 Interval history: patient seen and examined remained intubated, and sedated Remained on multiple pressors no family at bedside , discussed with RN Objective - Exam Narrative Exam: Constitutional: unresponsive, intubated Head, Ears, Nose: Normocephalic, atraumatic. External ears, nose normal Eyes: Conjunctivae/corneas clear. No icterus. No ptosis. Neck: intubated Oral: intubated, dry lips and tongue with blueish discoloration of lips Cardiovascular: S1, S2 normal. Respiratory: Good air entry, coarse BS auscultation bilaterally GI: firm, slightly distended, bowel sounds normal. No peritoneal signs Musculoskeletal: No pedal edema, no cyanosis. Skin: No rash or abscess Psych: no agitation Neurological: unresponsive, intubated, on vent - Constitutional Vitals: Vital Signs - 12hr 02/11/19 02/11/19 02/11/19 03:00 03:15 03:30 Temperature Pulse Rate 106 H 106 H 105 H Pulse Rate [ Anterior Bilateral Throughout] Respiratory 30 H 30 H 30 H Rate Respiratory Rate [Anterior Bilateral Throughout] Blood Pressure 102/53 107/60 117/64 O2 Sat by Pulse 99 98 Oximetry 02/11/19 02/11/19 02/11/19 03:35 03:45 03:49 Temperature 100.8 F H Pulse Rate 105 H 104 H Pulse Rate [ Anterior Bilateral Throughout] Respiratory 30 H Rate Respiratory Rate [Anterior Bilateral Throughout] Blood Pressure 117/64 127/67 O2 Sat by Pulse 97 98 Oximetry 02/11/19 02/11/19 02/11/19 04:00 04:15 04:30 Temperature Pulse Rate 103 H 102 H 103 H Pulse Rate [ Anterior Bilateral Throughout] Respiratory 30 H 30 H 30 H Rate Respiratory Rate [Anterior Bilateral Throughout] Blood Pressure 135/70 140/73 131/69 O2 Sat by Pulse 100 98 97 Oximetry 02/11/19 02/11/19 02/11/19 04:45 05:00 05:15 Temperature Pulse Rate 104 H 105 H 104 H Pulse Rate [ Anterior Bilateral Throughout] Respiratory 30 H 30 H 30 H Rate Respiratory Rate [Anterior Bilateral Throughout] Blood Pressure 118/69 119/66 124/64 O2 Sat by Pulse 97 96 97 Oximetry 02/11/19 02/11/19 02/11/19 05:30 05:45 06:00 Temperature Pulse Rate 104 H 103 H 105 H Pulse Rate [ Anterior Bilateral Throughout] Respiratory 30 H 30 H 30 H Rate Respiratory Rate [Anterior Bilateral Throughout] Blood Pressure 127/67 132/67 114/64 O2 Sat by Pulse 97 97 97 Oximetry 02/11/19 02/11/19 02/11/19 06:15 06:30 06:45 Temperature Pulse Rate 104 H 104 H 105 H Pulse Rate [ Anterior Bilateral Throughout] Respiratory 30 H 30 H 30 H Rate Respiratory Rate [Anterior Bilateral Throughout] Blood Pressure 116/66 122/68 104/61 O2 Sat by Pulse 98 98 96 Oximetry 1202/11/19 02/11/19 07:00 07:15 07:30 Temperature Pulse Rate 106 H 105 H 105 H Pulse Rate [ Anterior Bilateral Throughout] Respiratory 30 H 30 H 30 H Rate Respiratory Rate [Anterior Bilateral Throughout] Blood Pressure 111/63 102/56 90/52 O2 Sat by Pulse 97 96 96 Oximetry 02/11/19 02/11/19 02/11/19 07:45 08:00 08:15 Temperature 99.7 F H Pulse Rate 105 H 105 H 104 H Pulse Rate [ Anterior Bilateral Throughout] Respiratory 30 H 30 H 30 H Rate Respiratory Rate [Anterior Bilateral Throughout] Blood Pressure 81/57 112/60 100/67 O2 Sat by Pulse 97 98 98 Oximetry 02/11/19 02/11/19 02/11/19 08:30 08:45 09:00 Temperature 99.7 F H Pulse Rate 105 H 106 H 105 H Pulse Rate [ Anterior Bilateral Throughout] Respiratory 30 H 21 30 H Rate Respiratory Rate [Anterior Bilateral Throughout] Blood Pressure 112/60 99/52 101/59 O2 Sat by Pulse 97 94 96 Oximetry 02/11/19 02/11/19 02/11/19 09:15 09:30 09:45 Temperature Pulse Rate 105 H 104 H 104 H Pulse Rate [ Anterior Bilateral Throughout] Respiratory 30 H 30 H 30 H Rate Respiratory Rate [Anterior Bilateral Throughout] Blood Pressure 107/58 107/60 112/62 O2 Sat by Pulse 94 95 96 Oximetry 02/11/19 02/11/19 02/11/19 10:00 10:15 10:30 Temperature Pulse Rate 106 H 106 H 106 H Pulse Rate [ Anterior Bilateral Throughout] Respiratory 15 30 H 16 Rate Respiratory Rate [Anterior Bilateral Throughout] Blood Pressure 106/64 104/57 93/59 O2 Sat by Pulse 97 97 95 Oximetry 02/11/19 02/11/19 02/11/19 10:45 11:00 11:15 Temperature Pulse Rate 107 H 107 H 108 H Pulse Rate [ Anterior Bilateral Throughout] Respiratory 30 H 30 H 19 Rate Respiratory Rate [Anterior Bilateral Throughout] Blood Pressure 98/54 99/54 98/51 O2 Sat by Pulse 95 94 34 L Oximetry 02/11/19 02/11/19 02/11/19 11:30 11:45 11:55 Temperature Pulse Rate 112 H 108 H 108 H Pulse Rate [ Anterior Bilateral Throughout] Respiratory 12 30 H Rate Respiratory Rate [Anterior Bilateral Throughout] Blood Pressure 104/61 109/56 109/56 O2 Sat by Pulse 100 97 96 Oximetry 02/11/19 02/11/19 02/11/19 12:00 12:15 13:58 Temperature 100.2 F H Pulse Rate 108 H 108 H Pulse Rate [ 95 H Anterior Bilateral Throughout] Respiratory 24 28 H Rate Respiratory 30 H Rate [Anterior Bilateral Throughout] Blood Pressure 103/57 103/58 O2 Sat by Pulse 96 99 Oximetry - Labs CBC & Chem 7: 02/11/19 06:00 02/11/19 06:00 Labs: Abnormal lab results 02/10/19 02/10/19 02/11/19 Range/Units 19:11 23:12 00:12 WBC (4.5-11.0) K/mm3 RBC (3.65-5.03) M/mm3 Hgb (10.1-14.3) gm/dl Hct (30.3-42.9) % MCH (28-32) pg RDW (13.2-15.2) % Plt Count (140-440) K/mm3 Seg Neuts % (Manual) (40.0-70.0) % Lymphocytes % (Manual) (13.4-35.0) % Seg Neutrophils # Man (1.8-7.7) K/mm3 Lymphocytes # (Manual) (1.2-5.4) K/mm3 POC ABG pCO2 (35-45) POC ABG pO2 (80-105) Sodium (137-145) mmol/L Potassium (3.6-5.0) mmol/L Chloride (98-107) mmol/L Carbon Dioxide (22-30) mmol/L BUN (7-17) mg/dL Creatinine (0.7-1.2) mg/dL Glucose (65-100) mg/dL POC Glucose 65 L (70-105) Lactic Acid 8.50 H* 9.30 H* (0.7-2.0) mmol/L Calcium (8.4-10.2) mg/dL AST (5-40) units/L ALT (7-56) units/L Total Protein (6.3-8.2) g/dL Albumin (3.9-5) g/dL 02/11/19 02/11/19 02/11/19 Range/Units 05:09 05:42 06:00 WBC (4.5-11.0) K/mm3 RBC (3.65-5.03) M/mm3 Hgb (10.1-14.3) gm/dl Hct (30.3-42.9) % MCH (28-32) pg RDW (13.2-15.2) % Plt Count (140-440) K/mm3 Seg Neuts % (Manual) (40.0-70.0) % Lymphocytes % (Manual) (13.4-35.0) % Seg Neutrophils # Man (1.8-7.7) K/mm3 Lymphocytes # (Manual) (1.2-5.4) K/mm3 POC ABG pCO2 24.2 L (35-45) POC ABG pO2 77 L (80-105) Sodium (137-145) mmol/L Potassium (3.6-5.0) mmol/L Chloride (98-107) mmol/L Carbon Dioxide (22-30) mmol/L BUN (7-17) mg/dL Creatinine (0.7-1.2) mg/dL Glucose (65-100) mg/dL POC Glucose 48 L (70-105) Lactic Acid 9.60 H* (0.7-2.0) mmol/L Calcium (8.4-10.2) mg/dL AST (5-40) units/L ALT (7-56) units/L Total Protein (6.3-8.2) g/dL Albumin (3.9-5) g/dL 02/11/19 02/11/19 02/11/19 Range/Units 06:00 06:00 08:00 WBC 11.4 H (4.5-11.0) K/mm3 RBC 2.86 L (3.65-5.03) M/mm3 Hgb 7.2 L (10.1-14.3) gm/dl Hct 22.8 L (30.3-42.9) % MCH 25 L (28-32) pg RDW 20.2 H (13.2-15.2) % Plt Count 136 L (140-440) K/mm3 Seg Neuts % (Manual) 91.0 H (40.0-70.0) % Lymphocytes % (Manual) 1.0 L (13.4-35.0) % Seg Neutrophils # Man 10.4 H (1.8-7.7) K/mm3 Lymphocytes # (Manual) 0.1 L (1.2-5.4) K/mm3 POC ABG pCO2 (35-45) POC ABG pO2 (80-105) Sodium 134 L (137-145) mmol/L Potassium 3.4 L D (3.6-5.0) mmol/L Chloride 91.6 L (98-107) mmol/L Carbon Dioxide 14 L (22-30) mmol/L BUN 92 H (7-17) mg/dL Creatinine 6.2 H (0.7-1.2) mg/dL Glucose 160 H (65-100) mg/dL POC Glucose (70-105) Lactic Acid 9.40 H* (0.7-2.0) mmol/L Calcium 5.4 L* (8.4-10.2) mg/dL AST 244 H (5-40) units/L ALT 122 H (7-56) units/L Total Protein 4.6 L (6.3-8.2) g/dL Albumin 2.0 L (3.9-5) g/dL
[2019-02-11] MEDS ORDERED: levETIRAcetam 500 MG in DEXTROSE 5% IN WATER 100 ML IV SCH (22:00)
[2019-02-11] MEDS ORDERED: NORepinephrine 8 MG in SODIUM CHLORIDE 0.9% 250ML 242 ML IV SCH (23:00)
[2019-02-11] MEDS ORDERED: DOBUTamine/D5W 500 MG/250 ML 500 MG/250 ML BAG IV SCH (23:45)
[2019-02-12 00:22] VITALS: BP 76/45
--- NOTE | 2019-02-12 08:47 | Event Note ---
Date: 02/12/19 63 year old female who has been on admission for sepsis with severe shock,s/p cardiac arrest,hypoxic respiratory failure,metabolic encephalopathy and UTI. Care has been earlier withdrawn by family. Family wanted a DNR. Patient had lost her pulse shortly after withdrawal of care. O/E No response to sternal rub,intubated.Pupils fixed and dilated. Chest: No breath sound CVS: No peripheral pulses,no heart sounds Abdomen: distended, no bowel sounds Ext: cold and clammy. ELECTRICAL PROSPECTING ENGINEER: No reflexes. Patient pronounced at 12:06 AM 02/12/19. Family members at bedside.
--- NOTE | 2019-02-12 09:05 | Death Summary ---
Summary - Providers Consults: 02/08/19 15:46 Speech Therapy Evaluation and Treat [CONS] Routine Reason For Exam: AMS/FAILED BEDSIDE 02/08/19 16:18 Consult to Physician [CONS] Routine Comment: Consulting Provider: POLI PHILLIPS Physician Instructions: Reason For Exam: XUAN 02/09/19 08:39 Consult to Physician [CONS] Stat Comment: CLD OFC @0851 TO ADV PT IN ER Consulting Provider: ASHLEY SIDDIQUI Physician Instructions: Reason For Exam: CCU admission 02/09/19 09:53 Consult to Physician [CONS] Routine Comment: Consulting Provider: JARRETT REDD Physician Instructions: Reason For Exam: sepsis 02/09/19 11:36 Consult to Dietitian/Nutrition [CONS] Routine Physician Instructions: Reason For Exam: Reason for Consult: Evaluate nutritional intake Consult to Physician [CONS] Routine Comment: Consulting Provider: JARRETT REDD Physician Instructions: Reason For Exam: septic shock 02/11/19 07:16 Consult to Physician [CONS] Routine Comment: Consulting Provider: OCTAVIO LEE Physician Instructions: Reason For Exam: Seizures Attending: LETA CHURCH - summary Date of admission: 02/08/19 15:44 Date of : 02/12/19 Significant findings: 63 year old female who has been on admission for sepsis with severe shock,s/p cardiac arrest,hypoxic respiratory failure,metabolic encephalopathy and UTI. Care has been earlier withdrawn by family. Family wanted a DNR. Patient had lost her pulse shortly after withdrawal of care. O/E No response to sternal rub,intubated.Pupils fixed and dilated. Chest: No breath sound CVS: No peripheral pulses,no heart sounds Abdomen: distended, no bowel sounds Ext: cold and clammy. FRONT OFFICE SUPERVISOR: No reflexes. Patient pronounced at 12:06 AM 02/12/19. Family members at bedside.
--- NOTE | 2019-02-12 10:59 | Consultation ---
HISTORY OF PRESENT ILLNESS: This is a 63-year-old female who enters [facility] via the Emergency Room on 04/11/2018. This patient is admitted with a primary diagnosis of altered mental status. She was in a shelter and by records was full code. She had previously been a past medical history of stroke, has been walking around and talking per history. The patient was found to be hypoxic admission with sats in the 70s. The patient was hypotensive and brought to the hospital. The patient had been taking aspirin therapy. Past history of hypertension and diabetes. The patient was initially assessed. Hematocrit was 31. The creatinine was 7.6, potassium 5.8 and sodium is 150. The patient at that point was markedly obtunded and subsequently was admitted to the ICU and after admission to the ICU, it was noted to have a seizure. PHYSICAL EXAMINATION: VITAL SIGNS: On my seeing the patient at present, her vital signs are 112/60, pulse rate is 105, temperature is 99.7 degrees. NEUROLOGIC: Ocular movements are quite full, movements of the extremities are full. Neck is supple. Sensory examination withdraws to light touch. She will open her eyes to speech. No more seizures are occurring at present time. She has no tremors or asterixis. IMPRESSION: The patient has metabolic encephalopathy, old stroke, diabetes, hyperkalemia and metabolic derangement as noted. I agree with use of Keppra therapy. JOB# [id number] MARTINEZ/NTS
== END 2019-02-12 00:16 | DRG 871 ==
LOC: ED 13:03 → CC1 15:44
PROVIDERS: ADMIT Internal Medicine; ATTEND Internal Medicine
PROC: 5A1945Z Respiratory Ventilation, 24-96 Consecutive Hours (ICD-10-PCS; principal; 2019-02-08)
PROC: 0BH17EZ Insertion of Endotracheal Airway into Trachea, Via Natural or Artificial Opening (ICD-10-PCS; 2019-02-08)
PROC: 4A033R1 Measurement of Arterial Saturation, Peripheral, Percutaneous Approach (ICD-10-PCS; 2019-02-08)
PROC: 06HY33Z Insertion of Infusion Device into Lower Vein, Percutaneous Approach (ICD-10-PCS; 2019-02-08)
DX: A40.8 Other streptococcal sepsis (principal); J96.01 Acute respiratory failure with hypoxia; R65.21 Severe sepsis with septic shock; G93.41 Metabolic encephalopathy; N17.0 Acute kidney failure with tubular necrosis; I46.9 Cardiac arrest, cause unspecified; N39.0 Urinary tract infection, site not specified; F32.9 Major depressive disorder, single episode, unspecified; G30.9 Alzheimer's disease, unspecified; F02.80 Dementia in other diseases classified elsewhere, unspecified severity, without behavioral disturbance, psychotic disturbance, mood disturbance, and anxiety; D64.9 Anemia, unspecified; M62.82 Rhabdomyolysis; E66.01 Morbid (severe) obesity due to excess calories; R13.12 Dysphagia, oropharyngeal phase; E87.5 Hyperkalemia; E11.9 Type 2 diabetes mellitus without complications; E87.2 Acidosis; Z68.31 Body mass index [BMI] 31.0-31.9, adult; Z82.49 Family history of ischemic heart disease and other diseases of the circulatory system; Z91.013 Allergy to seafood; Z91.018 Allergy to other foods; Z79.899 Other long term (current) drug therapy; Z79.82 Long term (current) use of aspirin; Z79.84 Long term (current) use of oral hypoglycemic drugs; I69.354 Hemiplegia and hemiparesis following cerebral infarction affecting left non-dominant side; Z66 Do not resuscitate; Z51.5 Encounter for palliative care
CPT/HCPCS: 31500; 36415; 36600; 71045; 74018; 76770; 80048; 80053; 80061; 80074; 80202; 80320; 81001; 82140; 82550; 82570; 82803; 82962; 83690; 83735; 84145; 84300; 84484; 85007; 85025; 85610; 85730; 86850; 86900; 86901; 87040; 87070; 87086; 87205; 89050; 93005; 93010; 93306; 94002; 94003; 94640; 95819; 96365; G0378; C9113; G0480; J0171; J0610; J0692; J1250; J1265; J1644; J1720; J1815; J1953; J1956; J2060; J2250; J2310; J3010; J3370; J7030; J7040; J7050; J7070; J7120